=== PATIENT | male | born 1960 | race African-American/Black ===

== ENCOUNTER 2016-12-10 07:19 | Inpatient (IN) | payer MEDICARE, MEDICAID ==
[~2016-12-10] VITALS: Ht 180.3 cm; Wt 115.7 kg
[~2016-12-10 07:19] MED LIST: ALBUTEROL SULF8.5 GM INH; AMITRIPTYLINE H25 MG ORAL; AMLODIPINE BESY10 MG ORAL; AZITHROMYCIN250 MG ORAL; BUPROPION HCL150 M3 ORAL; COUMADIN5 MG ORAL; FLONASE1 SPRAYS NASAL; GABAPENTIN300 MG ORAL; HYDROXYZINE PA100 MG ORAL; KEFLEX500 MG ORAL; LEVAQUIN500 MG ORAL; LISINOPRIL10 MG ORAL; LORAZEPAM2 MG ORAL; NEXIUM40 MG ORAL; OXYCODONE HCL15 M1 ORAL; PROAIR HFA8.5 GM INH; PROMETH-CODEIN 65 ML PO; PROMETHAZINE-C118 M1 ORAL; TRAMADOL HCL50 MG ORAL; VOLTAREN50 MG TOPIC; WARFARIN SODIU7.5 MG ORAL; WARFARIN SODIUM5 MG ORAL; ZOFRAN4 M1 ORAL; ZYRTEC10 MG ORAL
[2016-12-10] MEDS ORDERED: Albuterol ud Inhalation HHN ONE (07:45)
[2016-12-10] MEDS ORDERED: Ipratropium 0.02% Inh Soln 2.5ml UD HHN ONE (07:45)
[2016-12-10 08:02] LABS: MEAN CORPUSCULAR HEMOGLOBIN 16.6 PG (27.0-31.0); MEAN CORPUSCULAR HGB CONC 27.5 G/DL (32.0-36.0); MEAN CORPUSCULAR VOLUME 60 FL (80-99); MEAN PLATELET VOLUME 7.2 FL (6.5-10.1); PLATELET COUNT 299 K/UL (150-450); RED BLOOD COUNT 2.28 M/UL (4.70-6.10); RED CELL DISTRIBUTION WIDTH 17.2 % (11.6-14.8); WHITE BLOOD COUNT 6.1 K/UL (4.8-10.8)
[2016-12-10 08:14] LABS: INR 2.7 (0.9-1.1)
[2016-12-10 08:15] LABS: ALBUMIN/GLOBULIN RATIO 1.3 (1.0-2.7); CREATININE 1.7 mg/dL (0.7-1.2); GLOMERULAR FILTRATION RATE 50.4 mL/min (>60); POTASSIUM 4.4 mEQ/L (3.4-4.9); TROPONIN I < 0.30 ng/mL (<=0.30)
--- NOTE | 2016-12-10 08:16 | Emergency Room Report ---
History of Present Illness General Chief Complaint: Upper Respiratory Illness Source: Patient Present Illness HPI 56-year-old male presents to ED for evaluation. States the last 3 days he's been feeling short of breath. Has hard time breathing. Short of breath while at rest. Patient states he's been using his inhaler but is not helping. Denies any cough. Denies any chest pain. Notes history of blood clot in his lungs and takes Coumadin. Denies sick contacts or recent travel. No other aggravating or relieving factors. Denies any other associated symptoms Allergies: Coded Allergies: NO KNOWN DRUG ALLERGIES (Unverified Allergy, Unknown, 02/20/14) Patient History Past Medical History: DM, HTN, COPD Past Surgical History: none Pertinent Family History: none Social History: Denies: alcohol use, drug use, smoking Immunizations: UTD Reviewed Nursing Documentation: PMH: Agreed, PSxH: Agreed Nursing Documentation-PMH Past Medical History: No History, Except For Hx Hypertension: Yes Hx Pacemaker: No Hx Asthma: No Hx COPD: Yes Hx Diabetes: Yes Hx Cancer: No Hx Gastrointestinal Problems: No Hx Dialysis: No Hx Neurological Problems: No Hx Cerebrovascular Accident: No Hx Seizures: No Review of Systems All Other Systems: negative except mentioned in HPI Physical Exam Vital Signs Date Time Temp Pulse Resp B/P Pulse Ox O2 Delivery O2 Flow Rate FiO2 12/10/16 07:27 97.5 107 24 92/54 98 Room Air 12/10/16 07:55 2.0 Sp02 EP Interpretation: reviewed, normal General Appearance: no apparent distress, alert, GCS 15, non-toxic Head: normocephalic, atraumatic Eyes: bilateral eye PERRL, bilateral eye normal inspection ENT: hearing grossly normal, normal pharynx, no angioedema, normal voice Neck: full range of motion, supple/symm/no masses Respiratory: chest non-tender, lungs clear, normal breath sounds, speaking full sentences Cardiovascular #1: regular rate, rhythm, no edema Cardiovascular #2: 2+ carotid (R), 2+ carotid (L), 2+ radial (R), 2+ radial (L) , 2+ dorsalis pedis (R), 2+ dorsalis pedis (L) Gastrointestinal: normal bowel sounds, non tender, soft, non-distended, no guarding, no rebound Rectal: deferred Genitourinary: normal inspection, no CVA tenderness Musculoskeletal: back normal, gait/station normal, normal range of motion, non- tender Neurologic: alert, oriented x3, responsive, motor strength/tone normal, sensory intact, speech normal Psychiatric: judgement/insight normal, memory normal, mood/affect normal, no suicidal/homicidal ideation Reflexes: 3+ bicep (R), 3+ bicep (L), 3+ tricep (R), 3+ tricep (L), 3+ knee (R) , 3+ knee (L) Skin: normal color, no rash, warm/dry, well hydrated Lymphatic: no adenopathy Procedures Critical Care Time Critical Care Time i. I feel this is a highly complex case requiring extensive working including EKG/Rhythm strip, Xray/CT/US, Blood/urine lab work, repeat exams while in ED, and administration of strong opiates/narcotics for pain control, admission to hospital or close patient follow up. Total time: 30 min bedside evaluation and treatment excludes procedures (EKG). Reason for critical care: anemia hb 3.8 Possible complications: hypotension, hypertension, NH, shock, arrhythmias, metabolic acidosis, end organ damage, respiratory failure. Interventions: labs, EKG, CXR, nebulizer treatments. PRBCs. guiac. abx. Course: patient here for shortness of breath. History of COPD and DVT. Hemoglobin 3.8. Chest x-ray shows interstitial infiltrates. PRBCs ordered. Antibiotics given Consultations: nursing staff, EMS, family Performed by: Dr Huff Tolerated well ondition = serious j. because of unstable vital signs this patient had a condition that could potentially threaten life or limb. I feel this is a critical patient who required my full attention while patient was considered critical. Total Critical Care Time excluding procedures was greater than 35 minutes Medical Decision Making Diagnostic Impression: Primary Impression: Anemia Qualified Codes: D64.9 - Anemia, unspecified Additional Impressions: COPD (chronic obstructive pulmonary disease) Qualified Codes: J44.9 - Chronic obstructive pulmonary disease, unspecified Acute renal failure Qualified Codes: N17.9 - Acute kidney failure, unspecified Pneumonia Qualified Codes: J18.9 - Pneumonia, unspecified organism ER Course Hospital Course 56-year-old M presenting to ED with SOB. h/o COPD. h/o DVT Differential diagnoses include: Pneumonia, CHF exacerbation, pneumothorax, fluid overload Clinical course Patient placed on stretcher. On rn cardiac rehab with stable vitals. After initial history and physical, I ordered nebulizer treatments. I ordered labs, IV fluids, EKG, chest x-ray, blood cultures, UA. Labs - no leukocytosis noted, hemoglobin 3.8, Cr 1.7, troponins negative, INR 2.7 CXR - cardiomegaly. bilateral interstitial infiltrates EKG - NSR, no acute ischemic changes interpreted by me blood was redrawn to recheck the hemoglobin and confirmed patient has good BP. PRBCs ordered. guiac negative. Unable to perform CTA with elevated Cr. unlikely PE with therapeutic INR. abx given Case discussed with Dr. Cobos and he agreed to the patient to his service for further care and support I feel this is a highly complex case requiring extensive working including EKG/ Rhythm strip, Xray/CT/US, Blood/urine lab work, repeat exams while in ED, and administration of strong opiates/narcotics for pain control, admission to hospital or close patient follow up. Diagnosis - anemia, COPD, ARF, pneuonia Patient admitted to [facility] in serious condition Labs Test 12/10/16 07:45 White Blood Count 6.1 K/UL (4.8-10.8) Red Blood Count 2.28 M/UL (4.70-6.10) Hemoglobin 3.8 G/DL (14.2-18.0) Hematocrit 13.8 % (42.0-52.0) Mean Corpuscular Volume 60 FL (80-99) Mean Corpuscular Hemoglobin 16.6 PG (27.0-31.0) Mean Corpuscular Hemoglobin Concent 27.5 G/DL (32.0-36.0) Red Cell Distribution Width 17.2 % (11.6-14.8) Platelet Count 299 K/UL (150-450) Mean Platelet Volume 7.2 FL (6.5-10.1) Neutrophils (%) (Auto) % (45.0-75.0) Lymphocytes (%) (Auto) % (20.0-45.0) Monocytes (%) (Auto) % (1.0-10.0) Eosinophils (%) (Auto) % (0.0-3.0) Basophils (%) (Auto) % (0.0-2.0) Differential Total Cells Counted 100 Neutrophils % (Manual) 75 % (45-75) Lymphocytes % (Manual) 15 % (20-45) Monocytes % (Manual) 5 % (1-10) Eosinophils % (Manual) 4 % (0-3) Basophils % (Manual) 1 % (0-2) Band Neutrophils 0 % (0-8) Nucleated Red Blood Cells 2 /100 WBC Platelet Estimate Adequate Platelet Morphology Normal Polychromasia 3+ Hypochromasia 4+ Poikilocytosis 2+ Anisocytosis 1+ Microcytosis 4+ Prothrombin Time 29.0 SEC (9.30-11.50) Prothromb Time International Ratio 2.7 (0.9-1.1) Activated Partial Thromboplast Time 29 SEC (23-33) Sodium Level 144 mEQ/L (135-145) Potassium Level 4.4 mEQ/L (3.4-4.9) Chloride Level 106 mEQ/L (98-107) Carbon Dioxide Level 25 mEQ/L (20-30) Anion Gap 13 (5-15) Blood Urea Nitrogen 28 mg/dL (7-23) Creatinine 1.7 mg/dL (0.7-1.2) Estimat Glomerular Filtration Rate 50.4 mL/min (>60) Glucose Level 120 mg/dL (74-106) Calcium Level 9.0 mg/dL (8.6-10.2) Total Bilirubin 0.3 mg/dL (0.0-1.2) Aspartate Amino Transf (AST/SGOT) 17 U/L (5-40) Alanine Aminotransferase (ALT/SGPT) 15 U/L (3-41) Alkaline Phosphatase 45 U/L (40-129) Total Creatine Kinase 579 U/L (38-174) Creatine Kinase MB 4.7 ng/mL (< 6.7) Creatine Kinase MB Relative Index 0.8 Troponin I < 0.30 ng/mL (<=0.30) Pro-B-Type Natriuretic Peptide 304 pg/mL (0-125) Total Protein 7.0 g/dL (6.6-8.7) Albumin 4.0 g/dL (3.5-5.2) Globulin 3.0 g/dL Albumin/Globulin Ratio 1.3 (1.0-2.7) EKG Diagnostic Results Rate: normal Rhythm: NSR ST Segments: no acute changes ASA given to the pt in ED: No Rhythm Strip Diag. Results EP Interpretation: yes Rhythm: NSR, no PVC's, no ectopy Chest X-Ray Diagnostic Results Chest X-Ray Ordered: Yes # of Views/Limited/Complete: 1 View Interpretation: no pneumothorax, other - bilateral interstitial infiltrates. cardiomegaly Indication: Shortness of Breath Impression: Other - cardiomegaly. bilateral infiltrates Date Electronically Signed: Dec 10, 2016 Time Electronically Signed: 08:41 Interpreting ER Physician: Aubrey Huff MD Last Vital Signs Date Time Temp Pulse Resp B/P Pulse Ox O2 Delivery O2 Flow Rate FiO2 12/10/16 07:55 101 20 100 Nasal Cannula 2.0 12/10/16 07:27 97.5 92/54 Status: improved Disposition: ADMITTED INPATIENT Condition: Serious Referrals: [facility],REFERRING (PCP) AUBREY HUFF M.D. Dec 10, 2016 08:16
[2016-12-10 08:25] LABS: CKMB 4.7 ng/mL (< 6.7)
[2016-12-10 08:27] LABS: ANISOCYTOSIS 1+; BAND NEUTROPHILS % (MANUAL) 0 % (0-8); BASOPHILS % (MANUAL) 1 % (0-2); EOSINOPHILS % (MANUAL) 4 % (0-3); HYPOCHROMASIA 4+; LYMPHOCYTES % (MANUAL) 15 % (20-45); MICROCYTES 4+; NEUTROPHILS % (MANUAL) 75 % (45-75); NUCLEATED RED BLOOD CELLS 2 /100 WBC; PLATELET ESTIMATE ADEQUATE; TOTAL CELLS COUNTED 100
[2016-12-10 08:28] LABS: PLATELET MORPHOLOGY NORMAL; POIKILOCYTOSIS 2+; POLYCHROMASIA 3+
[2016-12-10 08:35] VITALS: BP 113/61
--- NOTE | 2016-12-10 08:39 | Diagnostic Imaging Report ---
Indications: Shortness of breath Technique: Double AP chest Findings: Comparison: 04/05/2016 Inspiratory effort has improved. Cardiac silhouette upper limits of normal size. Pulmonary vascular redistribution, bilateral interstitial infiltrates again noted. No pleural abnormality demonstrated. Circumscribed soft tissue opacity with central gas lucency again noted over left lung base. IMPRESSION: Congestive heart failure Hiatal versus paraesophageal versus diaphragmatic hernia, stable
[2016-12-10] MEDS ORDERED: cefTRIAXone 1 GM in NS 55 ML IV ONE (08:45)
[2016-12-10] MEDS ORDERED: Azithromycin 500 MG in NS 275 ML IV ONE (08:45)
[2016-12-10 09:41] VITALS: BP 133/96
[2016-12-10] MEDS ORDERED: Azithromycin Inj IV ONE (09:47)
[2016-12-10] MEDS: DuoNeb 0.5-3(2.5)mg/3ml neb HHN SCH ×4 (11:00→22:55)
[2016-12-10 11:05] VITALS: BP 129/72
[2016-12-10] MEDS ORDERED: Norco 5mg/325mg tab ORAL ONE (11:30)
[2016-12-10 12:00] VITALS: BP 130/79
[2016-12-10 15:52] VITALS: BP 127/97
--- NOTE | 2016-12-10 16:30 | History and Physical Report ---
DATE OF ADMISSION: 12/10/2016 HISTORY OF PRESENT ILLNESS: This is a 56-year-old male with a history of COPD and CHF, who came to the hospital with shortness of breath. He was seen and worked up and admitted to the hospital. The patient was noted markedly anemic, although he denied having any obvious source of blood loss. The patient is currently on Coumadin. His guaiac test was negative in the emergency room. The patient has a previous history of pulmonary edema, previous amphetamine usage, history of previous DVT, COPD, obesity, probable underlying NIKKO, chronic Coumadin usage, and hypertension. It is noted that he was admitted to this hospital in March 2016 and was then discharged with recommendations to have an outpatient polysomnogram. The patient had pneumonia and rhabdomyolysis at that time as well. He was asked whether he was using amphetamines also at that point in time. The patient came to the hospital today with complaints of shortness of breath. He was seen and admitted to the hospital. At this point, he is being transfused. PAST MEDICAL HISTORY: Notable for hypertension, probable underlying COPD, problem lying NIKKO, history of amphetamine usage, history previous DVT and chronic Coumadin usage. MEDICATIONS: Home medications include amlodipine, lisinopril and Coumadin. ALLERGIES: None reported. REVIEW OF SYSTEMS: The patient denies any headaches, hematemesis, melena, or hematochezia. PHYSICAL EXAMINATION: GENERAL: The patient is a an obese male. VITAL SIGNS: Blood pressure is 160/60, heart rate is 104, respirations are 26, and O2 saturation 94% with oxygen. HEENT: Unremarkable. CHEST: Decreased breath sounds bilaterally. ABDOMEN: Soft, nontender, and nondistended. EXTREMITIES: There is no peripheral edema. No cyanosis or clubbing, LABORATORY AND DIAGNOSTIC DATA: An x-ray chest was obtained, which showed a hiatal versus paraesophageal versus diaphragmatic hernia. EKG is a normal sinus rhythm. Laboratory testing, verified hemoglobin was found to be 3.8, white count 6.1, and platelet count 299,000. Chemistries, creatinine 1.7, glucose 120. ProBNP 304. Troponin negative. INR 2.7. IMPRESSION: 1. Chronic Coumadin usage. 2. History of deep vein thrombosis. 3. History of obstructive sleep apnea. 4. History of chronic obstructive pulmonary disease. 5. History previous amphetamine use. 6. Severe anemia. 7. Obesity. 8. Possible pulmonary edema. DISCUSSION: 1. Admit to the hospital. 2. Continue medications. 3. Check 2D echo. 4. We will consult Cardiology. 5. We will consult Gastrointestinal for workup of anemia. 6. Consider Hematology evaluation. 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 Jarod Cobos M.D. DR: MANOHAR JOB#: [id number] CC:
[2016-12-10 20:36] VITALS: BP 141/75
[2016-12-10] MEDS ORDERED: DuoNeb 0.5-3(2.5)mg/3ml neb HHN PRN (22:30)
[2016-12-10] MEDS: Norco 5mg/325mg tab ORAL PRN (22:53)
[2016-12-11] VITALS (7 sets, daily range): BP systolic 106–134; BP diastolic 46–81
[2016-12-11] MEDS: DuoNeb 0.5-3(2.5)mg/3ml neb HHN SCH ×6 (02:45→23:16)
[2016-12-11 05:53] LABS: MEAN CORPUSCULAR HEMOGLOBIN 22.3 PG (27.0-31.0); MEAN CORPUSCULAR HGB CONC 31.3 G/DL (32.0-36.0); MEAN CORPUSCULAR VOLUME 71 FL (80-99); MEAN PLATELET VOLUME 6.6 FL (6.5-10.1); PLATELET COUNT 257 K/UL (150-450); RED BLOOD COUNT 3.19 M/UL (4.70-6.10); RED CELL DISTRIBUTION WIDTH 25.3 % (11.6-14.8); WHITE BLOOD COUNT 7.1 K/UL (4.8-10.8)
[2016-12-11 06:10] LABS: ANION GAP 15 (5-15); CALCIUM 8.8 mg/dL (8.6-10.2); CARBON DIOXIDE 22 mEQ/L (20-30); CHLORIDE 104 mEQ/L (98-107); CREATININE 1.2 mg/dL (0.7-1.2); GLOMERULAR FILTRATION RATE > 60 mL/min (>60); HEMOLYSIS 2; POTASSIUM 4.2 mEQ/L (3.4-4.9); SODIUM 141 mEQ/L (135-145)
[2016-12-11 06:23] LABS: HEMOGLOBIN A1C 5.1 % (< 6.0)
[2016-12-11 08:03] LABS: BAND NEUTROPHILS % (MANUAL) 0 % (0-8); BASOPHILS % (MANUAL) 0 % (0-2); EOSINOPHILS % (MANUAL) 4 % (0-3); HYPOCHROMASIA 3+; LYMPHOCYTES % (MANUAL) 19 % (20-45); NEUTROPHILS % (MANUAL) 71 % (45-75); PLATELET ESTIMATE ADEQUATE; TOTAL CELLS COUNTED 100
[2016-12-11 08:04] LABS: ANISOCYTOSIS 4+; MICROCYTES 2+; PLATELET MORPHOLOGY NORMAL
--- NOTE | 2016-12-11 08:38 | Pulmonology Progress Note ---
Assessment/Plan Assessment/Plan IMPRESSION: 1. Chronic Coumadin usage. 2. History of deep vein thrombosis. 3. History of obstructive sleep apnea. 4. History of chronic obstructive pulmonary disease. 5. History previous amphetamine use. 6. Severe anemia. 7. Obesity. 8. Possible pulmonary edema. DISCUSSION: 1. S/p 4 units prbc last 24 hours; Hgb still 7. Will transfuse another 2 units today 2. Continue medications. 3. Check 2D echo. 4. I will consult Cardiology. 5. I will consult Gastrointestinal for workup of anemia. 6. Consider Hematology evaluation. 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 Subjective Interval Events: S/p 4 units prbc last 24 hours; feels well Constitutional: Reports: no symptoms HEENT: Repors: no symptoms Respiratory: Reports: no symptoms Cardiovascular: Reports: no symptoms Gastrointestinal/Abdominal: Reports: no symptoms Genitourinary: Reports: no symptoms Neurologic: Reports: no symptoms Allergies: Coded Allergies: NO KNOWN DRUG ALLERGIES (Unverified Allergy, Unknown, 02/20/14) Objective Last 24 Hour Vital Signs Date Time Temp Pulse Resp B/P Pulse Ox O2 Delivery O2 Flow Rate FiO2 12/11/16 08:00 97.9 95 20 133/78 97 Room Air 12/11/16 07:32 84 18 99 Room Air 12/11/16 07:22 97 18 100 Room Air 12/11/16 07:22 97 20 Room Air 12/11/16 04:00 98.3 81 18 106/55 100 Room Air 12/11/16 03:23 93 12/11/16 02:46 95 20 99 Room Air 12/11/16 02:46 100 20 96 Room Air 12/11/16 00:27 101 12/11/16 00:00 97.9 104 20 134/81 97 Room Air 12/10/16 23:05 98 20 100 Room Air 12/10/16 22:55 98 20 100 Room Air 12/10/16 20:36 98.0 75 18 141/75 93 Room Air 12/10/16 19:19 102 20 100 Room Air 12/10/16 19:12 98 12/10/16 19:05 101 20 100 Room Air 12/10/16 19:05 101 20 Room Air 12/10/16 16:00 97 12/10/16 15:52 98.3 77 18 127/97 100 Room Air 12/10/16 12:00 98.0 92 20 130/79 100 Room Air 12/10/16 12:00 92 12/10/16 11:28 97.8 12/10/16 11:09 97.8 97 20 129/72 100 Room Air 2.0 12/10/16 11:05 97 20 129/72 100 Room Air 12/10/16 09:41 97.8 99 20 133/96 100 Nasal Cannula 2.0 Intake and Output 12/10/16 12/11/16 19:00 07:00 Intake Total 1335 ml 1290 ml Output Total 500 ml Balance 1335 ml 790 ml Intake Oral 30 ml 790 ml IV Total 805 ml Blood Product 500 ml 500 ml Output Urine Total 500 ml # Voids 2 1 General Appearance: no acute distress HEENT: normocephalic Respiratory/Chest: chest wall non-tender, lungs clear, normal breath sounds Cardiovascular: normal peripheral pulses, normal rate Abdomen: normal bowel sounds, soft, non tender Extremities: no cyanosis Laboratory Tests 12/11/16 03:25: White Blood Count 7.1, Red Blood Count 3.19L, Hemoglobin 7.1#L, Hematocrit 22.7# L, Mean Corpuscular Volume 71#L, Mean Corpuscular Hemoglobin 22.3L, Mean Corpuscular Hemoglobin Concent 31.3L, Red Cell Distribution Width 25.3H, Platelet Count 257, Mean Platelet Volume 6.6, Neutrophils (%) (Auto) , Lymphocytes (%) (Auto) , Monocytes (%) (Auto) , Eosinophils (%) (Auto) , Basophils (%) (Auto) , Differential Total Cells Counted 100, Neutrophils % ( Manual) 71, Lymphocytes % (Manual) 19L, Monocytes % (Manual) 6, Eosinophils % ( Manual) 4H, Basophils % (Manual) 0, Band Neutrophils 0, Platelet Estimate Adequate, Platelet Morphology Normal, Hypochromasia 3+, Anisocytosis 4+, Microcytosis 2+, Sodium Level 141, Potassium Level 4.2, Chloride Level 104, Carbon Dioxide Level 22, Anion Gap 15, Blood Urea Nitrogen 21, Creatinine 1.2, Estimat Glomerular Filtration Rate > 60, Glucose Level 99, Hemoglobin A1c 5.1, Calcium Level 8.8 Current Medications Medications (Trade) Dose Ordered Sig/Cory Route PRN Reason Start Time Stop Time Status Last Admin Dose Admin Acetaminophen/ Hydrocodone Bitart ([place] 5/325) 1 tab Q6H PRN ORAL For Pain 12/10/16 22:45 12/17/16 22:44 12/10/16 22:53 Albuterol/ Ipratropium (DuoNeb 0.5-3(2.5)mg/3ml) 3 ml Q4HRT HHN 12/10/16 11:00 12/15/16 10:59 12/11/16 07:22 Dextrose (Dextrose 50%) STAT PRN IV Hypoglycemia 12/10/16 10:00 01/09/17 09:59 Jarod Cobos MD Dec 11, 2016 08:38
--- NOTE | 2016-12-11 12:21 | GI Initial Consult Note ---
History of Present Illness General Date patient seen: Dec 11, 2016 Time patient seen: 12:11 Reason for Hospitalization: Upper Respiratory Illness Referring physician: JAROD CLEMENT Reason for Consultation: ANEMIA Present Illness HPI 56-year-old male presents to ED for evaluation. States the last 3 days he's been feeling short of breath. Has hard time breathing. Short of breath while at rest. Patient states he's been using his inhaler but is not helping. Denies any cough. Denies any chest pain. Notes history of blood clot in his lungs and takes Coumadin. Denies sick contacts or recent travel. No other aggravating or relieving factors. Denies any other associated symptoms GI CONSULT. HPI noted above. GI consulted for anemia, low Hgb 3.8 in ED. Pt seen on floor, awake A&Ox4 NAD with no active s/sx of N/V/D or active bleed noted. According to the patient he had an episode of emesis where he noted black coffee grounds and have noted his stools to be dark at times. He did state he was taking iron supplements as well. He has a history of abdominal surgery unknown, GERD by endoscopy in which he takes ppi's BID. His last colonoscopy was 2 years ago with unremarkable results and the patient states his last EGD was approximately 4-5 years ago. He presents today with low hemoglobin 7.1, currently being transfused. The patient also has a history of DVTs and is on Coumadin. Home Meds Active Scripts Levofloxacin* (LEVAQUIN*) 500 Mg Tablet, 500 MG ORAL DAILY for 7 Days, TAB Prov:Jarod Clement MD 04/07/16 Tramadol Hcl* (ULTRAM*) 50 Mg Tablet, 50 MG ORAL Q6H Y for 10 Days, TAB Prov:Jarod Clement MD 04/07/16 Reported Medications Lorazepam* (LORAZEPAM*) 2 Mg Tablet, 2 MG ORAL DAILY, TAB 04/05/16 Albuterol Sulfate* (PROAIR HFA*) 8.5 Gm Hfa.aer.ad, 1 PUFF INH Q6H, #8.5 GM 0 Refills 04/05/16 Warfarin Sod* (COUMADIN*) 5 Mg Tablet, 5 MG ORAL DAILY, TAB 04/05/16 Bupropion Hcl* (BUPROPION HCL SR*) 150 Mg Tablet.er, 150 MG ORAL DAILY, TAB 02/22/14 Amitriptyline Hcl* (AMITRIPTYLINE HCL*) 25 Mg Tablet, 25 MG ORAL BEDTIME, TAB 02/22/14 Lisinopril* (LISINOPRIL*) 10 Mg Tablet, 10 MG ORAL DAILY, TAB 02/22/14 Gabapentin* (GABAPENTIN*) 300 Mg Capsule, 300 MG ORAL DAILY, CAP 02/22/14 Amlodipine Besylate* (AMLODIPINE BESYLATE*) 10 Mg Tablet, 10 MG ORAL DAILY, TAB 02/22/14 Esomeprazole Magnesium (NEXIUM) 40 Mg Capsule.dr, 40 MG ORAL DAILY, CAP 02/22/14 Med list reviewed/reconciled: Yes Allergies: Coded Allergies: NO KNOWN DRUG ALLERGIES (Unverified Allergy, Unknown, 02/20/14) Patient History History Provided By: Patient, Medical Record PMH Narrative Past Medical History: DM, HTN, COPD Past Surgical History: none Pertinent Family History: none Social History: Denies: alcohol use, drug use, smoking Immunizations: UTD Reviewed Nursing Documentation: PMH: Agreed, PSxH: Agreed Nursing Documentation-PMH Past Medical History: No History, Except For Hx Hypertension: Yes Hx Pacemaker: No Hx Asthma: No Hx COPD: Yes Hx Diabetes: Yes Hx Cancer: No Hx Gastrointestinal Problems: No Hx Dialysis: No Hx Neurological Problems: No Hx Cerebrovascular Accident: No Hx Seizures: No Review of Systems All Other Systems: negative except mentioned in HPI Physical Exam Vital Signs Date Time Temp Pulse Resp B/P Pulse Ox O2 Delivery O2 Flow Rate FiO2 12/10/16 07:27 97.5 107 24 92/54 98 Room Air 12/10/16 07:55 2.0 Sp02 EP Interpretation: reviewed Labs Laboratory Tests Test 12/11/16 03:25 White Blood Count 7.1 K/UL (4.8-10.8) Red Blood Count 3.19 M/UL (4.70-6.10) L Hemoglobin 7.1 G/DL (14.2-18.0) #L Hematocrit 22.7 % (42.0-52.0) #L Mean Corpuscular Volume 71 FL (80-99) #L Mean Corpuscular Hemoglobin 22.3 PG (27.0-31.0) L Mean Corpuscular Hemoglobin Concent 31.3 G/DL (32.0-36.0) L Red Cell Distribution Width 25.3 % (11.6-14.8) H Platelet Count 257 K/UL (150-450) Mean Platelet Volume 6.6 FL (6.5-10.1) Neutrophils (%) (Auto) % (45.0-75.0) Lymphocytes (%) (Auto) % (20.0-45.0) Monocytes (%) (Auto) % (1.0-10.0) Eosinophils (%) (Auto) % (0.0-3.0) Basophils (%) (Auto) % (0.0-2.0) Differential Total Cells Counted 100 Neutrophils % (Manual) 71 % (45-75) Lymphocytes % (Manual) 19 % (20-45) L Monocytes % (Manual) 6 % (1-10) Eosinophils % (Manual) 4 % (0-3) H Basophils % (Manual) 0 % (0-2) Band Neutrophils 0 % (0-8) Platelet Estimate Adequate Platelet Morphology Normal Hypochromasia 3+ Anisocytosis 4+ Microcytosis 2+ Sodium Level 141 mEQ/L (135-145) Potassium Level 4.2 mEQ/L (3.4-4.9) Chloride Level 104 mEQ/L (98-107) Carbon Dioxide Level 22 mEQ/L (20-30) Anion Gap 15 (5-15) Blood Urea Nitrogen 21 mg/dL (7-23) Creatinine 1.2 mg/dL (0.7-1.2) Estimat Glomerular Filtration Rate > 60 mL/min (>60) Glucose Level 99 mg/dL (74-106) Hemoglobin A1c 5.1 % (< 6.0) Calcium Level 8.8 mg/dL (8.6-10.2) General Appearance: well appearing, no apparent distress, alert, obese Head: normocephalic EENT: normal ENT inspection Neck: full range of motion, supple Respiratory: normal breath sounds, no respiratory distress Cardiovascular: normal rate Gastrointestinal: normal inspection, non tender, soft, normal bowel sounds Genitourinary: normal inspection, no CVA tenderness Musculoskeletal: normal inspection Neurologic: normal inspection, alert, oriented x3, responsive Psychiatric: normal inspection, judgement/insight normal, memory normal Skin: normal inspection, normal color, no rash, warm/dry Lymphatic: normal inspection, no adenopathy Current Medications Current Medications Medications (Trade) Dose Ordered Sig/Cory Route PRN Reason Start Time Stop Time Status Last Admin Dose Admin Acetaminophen/ Hydrocodone Bitart ([place] 5/325) 1 tab Q6H PRN ORAL For Pain 12/10/16 22:45 12/17/16 22:44 12/10/16 22:53 Albuterol/ Ipratropium (DuoNeb 0.5-3(2.5)mg/3ml) 3 ml Q4HRT HHN 12/10/16 11:00 12/15/16 10:59 12/11/16 10:31 Dextrose (Dextrose 50%) STAT PRN IV Hypoglycemia 12/10/16 10:00 01/09/17 09:59 GI: Plan Problems: (1) Hypercoagulopathy (2) Anemia (3) Hx of deep venous thrombosis (4) Polysubstance abuse Plan tentatively will placed patient for EGD pending APCT results maintain on CLD + IVFs, NPO @ [facility]. correct coagulopathy ordered OB stool to r/o GI bleed ordered APCT r/o retroperitoneal bleed monitor H&H, transfuse prn PPI BID anemia work up hold blood thinners, coumadin (must be held min x 48 hours prior any endoscopic procedure.) fu labs Discussed with Dr. Vanegas. Thank you for referring this patient, we will follow. Clara Romero N.P. Dec 11, 2016 12:21
[2016-12-11] MEDS ORDERED: Phytonadione 1 MG in D5W 55 ML IVPB ONE (16:00)
[2016-12-11] MEDS: Norco 5mg/325mg tab ORAL PRN ×2 (16:26→23:43)
--- NOTE | 2016-12-11 16:43 | Diagnostic Imaging Report ---
Clinical Indication: Abdominal pain Technique: Patient ingested oral contrast IV administration nonionic contrast. Venous phase spiral acquisition obtained through the abdomen and pelvis. Multiplanar reconstructions were generated. Total dose length product 971 mGycm. CTDIvol(s) the mGy. Dose reduction achieved using automated exposure control Comparison: None Findings: Normal appendix. No evidence of diverticulosis or diverticulitis. No small bowel distention. There is a sizable paraesophageal hiatal hernia. The duodenum is unremarkable. No free or loculated intraperitoneal air or fluid is evident. There are fat-containing bilateral inguinal hernias. No evidence of retroperitoneal hematoma. No other evidence of bleeding. There is mild edema of the bilateral flank and hip subcutaneous fat. There is relative asymmetric atrophy of the right-sided paraspinous musculature. The liver, gallbladder, bile ducts, pancreas, spleen, adrenals are all unremarkable. The kidneys demonstrate bilateral subcentimeter low-attenuation lesions which are too small to characterize. No retroperitoneal or mesenteric mass or adenopathy. No pelvic mass or adenopathy. The included lung bases demonstrate 2 nodules on the left, image 5 of series 7, each measuring approximately 2 mm diameter. Some atelectasis or scarring is seen in the left lung base, as well as some reticulonodular opacities. The right lung base is clear. The bones are unremarkable. Impression: No evidence of retroperitoneal hematoma or other acute abnormality Large paraesophageal hiatal hernia 2 left lung base nodules, each approximately 2 millimeters diameter. If there is significant smoking history or other risk factors for lung carcinoma, shorter followup at 6 months is recommended, per Fleischner criteria. If there are no significant risk factors, no further followup is necessary Nonspecific reticulonodular opacities at the left lung base Other findings as noted, including bilateral fat-containing inguinal hernias, mild edema of the bilateral flank subcutaneous fat, asymmetric atrophy of the right-sided paraspinous musculature The CT scanner at [facility] is accredited by the [employer] and the scans are performed using protocols designed to limit radiation exposure to as low as reasonably achievable to attain images of sufficient resolution adequate for diagnostic evaluation.
--- NOTE | 2016-12-11 23:45 | Consultation ---
DATE OF CONSULTATION: 12/11/2016 CARDIOLOGY CONSULTATION CONSULTING PHYSICIAN: Alejandro Turner M.D. REFERRING PHYSICIAN: Jarod Cobos M.D. REASON FOR CONSULTATION: Management of shortness of breath. HISTORY OF PRESENT ILLNESS: The patient is a very unfortunate 56-year-old gentleman, who presents to the emergency department with complaint of shortness of breath and coffee-ground emesis as well as melanotic stools. The patient takes Coumadin for prior history of deep vein thrombosis. He denies pulmonary embolism. On arrival to the emergency department, blood pressure was 92/54 mmHg and heart rate was 107. Cardiology consultation was made at the request of Dr. Cobos for evaluation and management of shortness of breath. PAST MEDICAL HISTORY: Including diabetes mellitus, hypertension, chronic obstructive pulmonary disease, and history of DVT. MEDICATIONS: List of medication at home including Albuterol one puff q.6 hours, amitriptyline 35 mg at bedtime, amlodipine 10 mg p.o. daily, bupropion 150 mg daily, 40 mg p.o. daily, gabapentin 300 mg p.o. daily, Levaquin 500 mg p.o. daily for 7 days, lisinopril 10 mg p.o. daily, lorazepam 10 mg p.o. daily, Ultram 50 mg p.o. q.6 hours p.r.n. 10 days, and Coumadin 5 mg p.o. daily. ALLERGIES: No known drug allergies. SOCIAL HISTORY: Possible history of amphetamine use. Denies any history of alcohol. REVIEW OF SYSTEMS: A 12-system review was done and essentially negative except what is mentioned in the history of present illness. PHYSICAL EXAMINATION: VITAL SIGNS: Blood pressure at the time of arrival to the hospital was 92/54, respirations 24, pulse of 107, temperature 97.5 degrees Fahrenheit, and O2 saturation 98% on room air. GENERAL: The patient is a pleasant morbidly obese 56-year-old gentleman, in no apparent respiratory distress. Alert and orient x4. HEENT: Atraumatic and normocephalic. Anicteric. Pupils are equal, round, and reactive to light and accommodation. Extraocular muscles intact. NECK: JVP cannot be assessed due to obesity. No carotid bruits. Carotid upstrokes 2+ bilaterally. CARDIOVASCULAR: Normal S1 and S2. Regular rate and rhythm. A 2/6 mid systolic murmur at the left sternal border. PMI is at fourth intercostal space in the midclavicular line. LUNGS: Clear to auscultation bilaterally. ABDOMEN: Soft, nontender, and nondistended. No hepatosplenomegaly. A midline vertical scar is seen. Positive bowel sounds. EXTREMITIES: No evidence of edema, clubbing, or cyanosis. ATTENDING PHYSICIAN: WBC 6.1, hemoglobin 3.8, up to 7.1 after blood transfusion, hematocrit 13.8, up to 22.7 after blood transfusion, and platelet count is 299,000. Chemistry shows sodium 144, potassium 4.4, chloride 106, bicarbonate 25, BUN of 28, creatinine 1.7 down to 1.2, and glucose is 120. Troponin I is less than 0.3. ProBNP was 304. INR is 2.7. A 12-lead electrocardiogram, sinus rhythm at a rate of 98 with no acute ischemic changes. Chest x-ray showed cardiomegaly with bilateral interstitial edema. ASSESSMENT AND PLAN: The patient is a very unfortunate 56-year-old gentleman, who is seen in Cardiology consultation at the request of Dr. Cobos. 1. Dyspnea. This could be secondary to be profound anemia due to acute blood loss. Chest x-ray is also suggestive of some interstitial edema. We would like to obtain 2D echocardiography for assessment of left ventricular systolic function and also diastolic function for evaluation of hemodynamics. Further diagnosis and therapeutic decision will be based on the results of echocardiography. At this time, we will continue with oxygen. In view of hypotension on arrival to the hospital, I would probably stay away from diuretic use. 2. History of deep venous thrombosis. He denies pulmonary embolism. A 12-lead electrocardiogram is showing features of pulmonary embolism, however, 2D echocardiography can shed light on the right-sided chambers as well. Pulmonary hypertension needs to be ruled out. 3. Anemia of blood loss likely due to warfarin. The patient may be a candidate for IVC filter placement if long-term anticoagulation therapy is contemplated. . I would like to thank, Dr. Cobos, for allowing me to participate in the care of this patient. Alejandro Turner M.D. DR: CAROL JOB#: [id number] CC:
[2016-12-12] VITALS (8 sets, daily range): BP systolic 103–128; BP diastolic 64–77
[2016-12-12] MEDS: DuoNeb 0.5-3(2.5)mg/3ml neb HHN SCH ×3 (03:14→10:30)
[2016-12-12 05:20] LABS: BASOPHILS % (AUTO) 1.1 % (0.0-2.0); EOSINOPHILS % (AUTO) 3.8 % (0.0-3.0); LYMPHOCYTES % (AUTO) 22.1 % (20.0-45.0); MEAN CORPUSCULAR HEMOGLOBIN 23.5 PG (27.0-31.0); MEAN CORPUSCULAR HGB CONC 31.9 G/DL (32.0-36.0); MEAN CORPUSCULAR VOLUME 74 FL (80-99); MEAN PLATELET VOLUME 6.8 FL (6.5-10.1); MONOCYTES % (AUTO) 7.9 % (1.0-10.0); NEUTROPHILS % (AUTO) 65.1 % (45.0-75.0); PLATELET COUNT 247 K/UL (150-450); RED BLOOD COUNT 3.68 M/UL (4.70-6.10); RED CELL DISTRIBUTION WIDTH 25.3 % (11.6-14.8); WHITE BLOOD COUNT 7.8 K/UL (4.8-10.8)
[2016-12-12 05:46] LABS: ANION GAP 16 (5-15); CALCIUM 8.6 mg/dL (8.6-10.2); CARBON DIOXIDE 23 mEQ/L (20-30); CHLORIDE 102 mEQ/L (98-107); CREATININE 1.1 mg/dL (0.7-1.2); GLOMERULAR FILTRATION RATE > 60 mL/min (>60); HEMOLYSIS 3; POTASSIUM 3.9 mEQ/L (3.4-4.9); SODIUM 141 mEQ/L (135-145)
[2016-12-12 06:17] LABS: INR 1.6 (0.9-1.1); PROTHROMBIN TIME 16.9 SEC (9.30-11.50)
[2016-12-12] MEDS ORDERED: Lidocaine 1% MPF 10mg/ml 5ml ONE (11:00)
[2016-12-12] MEDS ORDERED: Propofol 10mg/ml 20ml IV ONE (11:00)
[2016-12-12] MEDS ORDERED: NS 550ML IV ONE (11:15)
--- NOTE | 2016-12-12 11:25 | Pre-Procedure Note/Attestation ---
Pre-Procedure Note/Attestation Complete Prior to Procedure Planned Procedure: not applicable Procedure Narrative: egd Indications for Procedure Pre-Operative Diagnosis: gib Attestation I attest that I discussed the nature of the procedure; its benefits; risks and complications; and alternatives (and the risks and benefits of such alternatives ), prior to the procedure, with the patient (or the patient's legal business banking representative). I attest that, if there was a reasonable possibility of needing a blood transfusion, the patient (or the patient's legal business banking representative) was given the [facility] standardized written summary, pursuant to the Anam Malathi Blood Safety Act ([place] Health and Safety Code # 1645, as amended). I attest that I re-evaluated the patient just prior to the surgery and that there has been no change in the patient's H&P, except as documented below: PETER SHEPPARD Dec 12, 2016 11:25
--- NOTE | 2016-12-12 11:38 | Endoscopy Procedure Note ---
Endoscopy Procedure Note Indication for Procedure: gib Procedures Performed: EGD Operative Findings/Diagnosis: gastritis Specimen: yes Pt Tolerated Procedure Well: Yes Estimated Blood Loss: none Anesthesiologist: terry Anesthesia: MAC Implant(s) used?: No 50 yrs or older w/o bx or poly: Not Applicable 10yrs. F/U not recommended: Not Applicable PETER SHEPPARD Dec 12, 2016 11:38
--- NOTE | 2016-12-12 11:46 | Immediate Post-Op Evaluation ---
Immediate Post-Op Evalulation Immediate Post-Op Evalulation Procedure: EGD Date of Evaluation: Dec 12, 2016 Time of Evaluation: 11:44 IV Fluids: 200 Blood Pressure Systolic: 114 Blood Pressure Diastolic: 75 Pulse Rate: 99 Respiratory Rate: 14 O2 Sat by Pulse Oximetry: 98 Temperature (Fahrenheit): 98.6 Nausea: No Vomiting: No Complications none Patient Status: patent Hydration Status: adequate Drug: none KATHY KINGSLEY CRNA Dec 12, 2016 11:46
--- NOTE | 2016-12-12 11:48 | Anethesia Preoperative Eval ---
Anesthesia Pre-op PMH/ROS General Date of Evaluation: Dec 12, 2016 Time of Evaluation: 11:10 Anesthesiologist: dale ASA Score: ASA 3 Mallampati Score Class I : Soft palate, uvula, fauces, pillars visible Class II: Soft palate, uvula, fauces visible Class III: Soft palate, base of uvula visible Class IV: Only hard plate visible Mallampati Classification: Class III Surgeon: yolis Diagnosis: anemia Surgical Procedure: EGD Anesthesia History: none Allergies: Coded Allergies: NO KNOWN DRUG ALLERGIES (Unverified Allergy, Unknown, 02/20/14) Past Medical History Cardiovascular: Reports: HTN Pulmonary: Reports: COPD, NIKKO Endocrine: Reports: DM HEENT: Denies: [place] (L), [place] (R), cataract (L), cataract (R), glaucoma, other Hematology/Immune: Reports: DVT, anemia Other: obesity Anesthesia Pre-op Phys. Exam Physician Exam Last Vital Signs Date Time Temp Pulse Resp B/P Pulse Ox O2 Delivery O2 Flow Rate FiO2 12/12/16 10:40 105 20 98 Room Air 12/12/16 08:00 98.1 128/77 12/11/16 19:25 21 12/10/16 11:09 2.0 Constitutional: NAD Neurologic: CN 2-12 intact Cardiovascular: RRR, other - st Respiratory: CTA Gastrointestinal: S/NT/ND Airway Exam Mallampati Classification 3 Mallampati Score: Class III MO: full Neck: thick ROM: full Dentures: no lower, no upper Anesthesia Pre-op A/P Labs Hematology Test 12/12/16 03:05 White Blood Count 7.8 K/UL (4.8-10.8) Red Blood Count 3.68 M/UL (4.70-6.10) L Hemoglobin 8.7 G/DL (14.2-18.0) L Hematocrit 27.1 % (42.0-52.0) L Mean Corpuscular Volume 74 FL (80-99) L Mean Corpuscular Hemoglobin 23.5 PG (27.0-31.0) L Mean Corpuscular Hemoglobin Concent 31.9 G/DL (32.0-36.0) L Red Cell Distribution Width 25.3 % (11.6-14.8) H Platelet Count 247 K/UL (150-450) Mean Platelet Volume 6.8 FL (6.5-10.1) Neutrophils (%) (Auto) 65.1 % (45.0-75.0) Lymphocytes (%) (Auto) 22.1 % (20.0-45.0) Monocytes (%) (Auto) 7.9 % (1.0-10.0) Eosinophils (%) (Auto) 3.8 % (0.0-3.0) H Basophils (%) (Auto) 1.1 % (0.0-2.0) Coagulation Test 12/12/16 03:05 Prothrombin Time 16.9 SEC (9.30-11.50) H Prothromb Time International Ratio 1.6 (0.9-1.1) H Activated Partial Thromboplast Time 28 SEC (23-33) Chemistry Test 12/12/16 03:05 Sodium Level 141 mEQ/L (135-145) Potassium Level 3.9 mEQ/L (3.4-4.9) Chloride Level 102 mEQ/L (98-107) Carbon Dioxide Level 23 mEQ/L (20-30) Anion Gap 16 (5-15) H Blood Urea Nitrogen 13 mg/dL (7-23) Creatinine 1.1 mg/dL (0.7-1.2) Estimat Glomerular Filtration Rate > 60 mL/min (>60) Glucose Level 74 mg/dL (74-106) Calcium Level 8.6 mg/dL (8.6-10.2) Pro-B-Type Natriuretic Peptide 458 pg/mL (0-125) H Studies Pre-op Studies: EKG - ST Risk Assessment & Plan Plan: mac Status Change Before Surgery: No Pre-Antibiotics Drug: none KATHY KINGSLEY CRNA Dec 12, 2016 11:48
[2016-12-12] MEDS ORDERED: Nulytely 4L ORAL ONE (13:00)
--- NOTE | 2016-12-12 13:21 | 48 Hour Post Anesthesia Eval ---
Post Anesthesia Evaluation Procedure: EGD Date of Evaluation: Dec 12, 2016 Time of Evaluation: 13:20 Blood Pressure Systolic: 116 0: 70 Pulse Rate: 78 O2 Sat by Pulse Oximetry: 100 Airway: patent Nausea: No Vomiting: No Hydration Status: adequate Cardiopulmonary Status: stable Mental Status/LOC: patient returned to baseline Post-Anesthesia Complications: none Follow-up care needed: N/A KATHY KINGSLEY CRNA Dec 12, 2016 13:21
[2016-12-12] MEDS ORDERED: NS 275ml ONE (14:59)
[2016-12-12] MEDS ORDERED: Tubing IV Secondary IV ONE (14:59)
[2016-12-12] MEDS ORDERED: NS Irrig 4000ml IRRIG ONE (14:59)
[2016-12-12] MEDS ORDERED: Tubing Blood Filter IV ONE (14:59)
--- NOTE | 2016-12-12 16:45 | Procedure Note ---
DATE OF PROCEDURE: 12/12/2016 SURGEON: Uday Vanegas M.D. PROCEDURE: Upper endoscopy with biopsy. ANESTHESIOLOGIST: Candy GUTIERREZ. INSTRUMENT: Olympus adult flexible upper endoscope. INDICATION: Gastrointestinal bleeding. REASON FOR PROCEDURE: The procedure, risks, benefits, and possible consequences, including hemorrhage, aspiration, perforation and infection, and alternative treatments, were explained to the patient/legal guardian by Dr. Uday Vanegas and the patient/legal guardian understood and accepted these risks. DESCRIPTION OF PROCEDURE: After informed consent was obtained and the patient was adequately sedated, Olympus upper endoscope was advanced from mouth into the second portion of duodenum and retroflexion was performed in the stomach. The patient had diffuse gastritis more prominent in the antrum and angularis. Biopsy from antrum was obtained. The patient also had paraesophageal hernia. No evidence of any obvious esophagitis or varices. No active upper gastrointestinal bleeding at this time. Random biopsy from antrum was obtained to rule out H. pylori infection. The patient tolerated the procedure very well without complication. SUMMARY OF FINDINGS: 1. Status post upper endoscopy examination. 2. Gastritis. 3. Paraesophageal hernia. RECOMMENDATIONS: Follow up biopsy results and treat accordingly. The patient needs a colonoscopy tomorrow given no obvious bleeding at this time in the stomach. CT showed no evidence any retroperitoneal bleed. stool OB has been positive so the patient will benefit from colonoscopy tomorrow. I want to thank Dr. Cobos for this kind referral. Uday Vanegas M.D. DR: Serafin JOB#: [id number] CC: Jarod Cobos M.D.; Fax#: [phone]
--- NOTE | 2016-12-12 17:53 | Cardiology Progress Note ---
Assessment/Plan Assessment/Plan 1. Dyspnea. This could be secondary to be profound anemia due to acute blood loss. There is normal LV systolic function. 2. History of deep venous thrombosis. He denies pulmonary embolism but there is mild RV enlargement and mild pulmonary HTN. 3. Anemia of blood loss likely due to warfarin. Subjective Subjective Sinus rhythm at 98. Objective Last 24 Hour Vital Signs Date Time Temp Pulse Resp B/P Pulse Ox O2 Delivery O2 Flow Rate FiO2 12/12/16 14:53 98 20 96 Room Air 12/12/16 14:53 98 20 96 Room Air 12/12/16 13:21 78 100 12/12/16 12:00 98.4 95 24 116/74 99 Room Air 12/12/16 12:00 94 12/12/16 11:50 93 25 111/75 97 Room Air 12/12/16 11:46 99 14 98 12/12/16 11:45 94 22 110/75 95 Room Air 12/12/16 11:38 98.6 96 20 114/75 96 Room Air 12/12/16 10:40 105 20 98 Room Air 12/12/16 10:30 105 20 96 Room Air 12/12/16 08:00 101 12/12/16 08:00 98.1 96 18 128/77 92 Room Air 12/12/16 07:32 108 20 98 Room Air 12/12/16 07:22 108 20 96 Room Air 12/12/16 04:00 96 12/12/16 04:00 97.7 94 21 122/69 98 Room Air 12/12/16 03:26 88 18 98 Room Air 12/12/16 03:16 83 18 95 Room Air 12/12/16 00:00 97.5 92 17 103/64 94 Room Air 12/12/16 00:00 99 12/11/16 23:30 95 18 96 Room Air 12/11/16 23:18 94 18 95 Room Air 12/11/16 20:37 20 Room Air 12/11/16 20:00 97.9 94 20 121/80 97 Room Air 12/11/16 20:00 97 12/11/16 19:25 88 20 97 Room Air 21 12/11/16 19:11 90 22 95 Room Air 21 Intake and Output 12/11/16 12/12/16 19:00 07:00 Intake Total 300 ml 120 ml Balance 300 ml 120 ml Intake Oral 300 ml 120 ml # Voids 3 3 # Bowel Movements 3 2D Echo: EF 60%, TRAY, Mild RVE, Mild MR, Mod TR with RVSP at 45 mmHg Laboratory Tests Test 12/12/16 03:05 White Blood Count 7.8 K/UL (4.8-10.8) Red Blood Count 3.68 M/UL (4.70-6.10) L Hemoglobin 8.7 G/DL (14.2-18.0) L Hematocrit 27.1 % (42.0-52.0) L Mean Corpuscular Volume 74 FL (80-99) L Mean Corpuscular Hemoglobin 23.5 PG (27.0-31.0) L Mean Corpuscular Hemoglobin Concent 31.9 G/DL (32.0-36.0) L Red Cell Distribution Width 25.3 % (11.6-14.8) H Platelet Count 247 K/UL (150-450) Mean Platelet Volume 6.8 FL (6.5-10.1) Neutrophils (%) (Auto) 65.1 % (45.0-75.0) Lymphocytes (%) (Auto) 22.1 % (20.0-45.0) Monocytes (%) (Auto) 7.9 % (1.0-10.0) Eosinophils (%) (Auto) 3.8 % (0.0-3.0) H Basophils (%) (Auto) 1.1 % (0.0-2.0) Prothrombin Time 16.9 SEC (9.30-11.50) H Prothromb Time International Ratio 1.6 (0.9-1.1) H Activated Partial Thromboplast Time 28 SEC (23-33) Sodium Level 141 mEQ/L (135-145) Potassium Level 3.9 mEQ/L (3.4-4.9) Chloride Level 102 mEQ/L (98-107) Carbon Dioxide Level 23 mEQ/L (20-30) Anion Gap 16 (5-15) H Blood Urea Nitrogen 13 mg/dL (7-23) Creatinine 1.1 mg/dL (0.7-1.2) Estimat Glomerular Filtration Rate > 60 mL/min (>60) Glucose Level 74 mg/dL (74-106) Calcium Level 8.6 mg/dL (8.6-10.2) Pro-B-Type Natriuretic Peptide 458 pg/mL (0-125) H Microbiology Date/Time Source Procedure Growth Status 12/10/16 11:00 Blood Blood Culture - Preliminary NO GROWTH AFTER 24 HOURS Resulted 12/10/16 10:45 Blood Blood Culture - Preliminary NO GROWTH AFTER 24 HOURS Resulted Objective HEENT: Atraumatic and normocephalic. Anicteric. Pupils are equal, round, and reactive to light and accommodation. Extraocular muscles intact. NECK: JVP cannot be assessed due to obesity. No carotid bruits. Carotid upstrokes 2+ bilaterally. CARDIOVASCULAR: Normal S1 and S2. Regular rate and rhythm. A 2/6 mid systolic murmur at the left sternal border. PMI is at fourth intercostal space in the midclavicular line. LUNGS: Clear to auscultation bilaterally. ABDOMEN: Soft, nontender, and nondistended. No hepatosplenomegaly. A midline vertical scar is seen. Positive bowel sounds. EXTREMITIES: No evidence of edema, clubbing, or cyanosis. RAMAKRISHNA PAYNE Dec 12, 2016 17:52
[2016-12-13 09:10] LABS: OTHERS PATHOLOGIST COMMENT
--- NOTE | 2016-12-13 13:24 | Discharge Summary ---
Discharge Summary Hospital Course Date of Admission Dec 10, 2016 at 08:53 Date of Discharge Dec 12, 2016 at 15:00 Admitting Diagnosis SOB/anemia HPI Zachary Brown is a 56 year old male who was admitted on Dec 10, 2016 at 08:53 for Shortness Of Breath,Anemia Hospital Course [id number] Discharge Discharge Disposition Patient AMA Discharge Diagnoses: Nubia Regalado NP Dec 13, 2016 13:24
--- NOTE | 2016-12-13 13:25 | Cardiology Report ---
APPROVED REPORT EKG Measurement Heart [id number] Normal sinus rhythm Normal ECG
--- NOTE | 2016-12-13 22:00 | Discharge Summary 2 SIG ---
DATE OF ADMISSION: 12/10/2016 DATE OF DISCHARGE: 12/12/2016 CONSULTANTS: 1. Uday Vanegas M.D. 2. Alejandro Turner M.D. BRIEF HOSPITAL COURSE: The patient is 56-year-old male, with a history of chronic obstructive pulmonary disease and congestive heart failure, who came to the hospital with shortness of breath. He stated that for the last three days, he has been feeling short of breath and had hard time breathing even at rest. His regular inhalers were not helping. He presented to ED and on evaluation, hemoglobin was 3.8, INR was 2.7, and creatinine was 1.7. Chest x-ray showed bilateral interstitial infiltrates. EKG was in normal sinus rhythm with no ischemic changes. He was admitted to [facility]. The patient was on Coumadin for a prior history of DVT. He was given four units of packed RBC blood transfusion, however, remained anemic with hemoglobin of 7. He was given two units more. He was placed on clear liquid diet and given proton pump inhibitors b.i.d. He underwent esophagogastroduodenoscopy on 12/12/2016 with findings of gastritis and paraesophageal hernia. Stool OB was positive. Abdominal and pelvic CT showed no evidence of retroperitoneal hematoma or acute abnormality. He was planned for colonoscopy. Dr. Turner was also consulted for evaluation of shortness of breath. Troponin was negative. Anemia was assessed to be likely due to warfarin and is a good candidate for IVC filter placement for a long-term anticoagulation therapy. Echocardiogram done showed normal left ventricular systolic function, but there is mild RV enlargement and mild pulmonary hypertension. Full treatment was not carried out as the patient signed out against medical advice. FINAL DIAGNOSES: 1. Acute anemia requiring blood transfusion. 2. Hypercoagulable state secondary to Coumadin use. 3. Obesity. 4. Possible pulmonary edema. 5. Old deep venous thrombosis. Venous duplex of lower extremities revealed patent deep venous system bilaterally. 6. Anemia of blood loss likely due to warfarin. 7. Gastritis. 8. Paraesophageal hernia. 9. Noncompliance as the patient signed out against medical advice. Jarod Tirmizi, M.D. I have been assigned to dictate discharge summary on this account and I was not involved in the patient's management. Nubia Regalado N.P. DR: RAFI JOB#: [id number] CC:
== END 2016-12-12 15:00 | disposition left against medical advice (07) | DRG 812 ==
LOC: EMR 07:59 → 2W 08:53 → EDBEDREQ 10:24 → 2W 22:46
PROC: 30233N1 Transfusion of Nonautologous Red Blood Cells into Peripheral Vein, Percutaneous Approach (ICD-10-PCS; principal; 2016-12-10)
PROC: 0DB68ZX Excision of Stomach, Via Natural or Artificial Opening Endoscopic, Diagnostic (ICD-10-PCS; 2016-12-12)
DX: D62 Acute posthemorrhagic anemia (principal); J81.1 Chronic pulmonary edema; D68.59 Other primary thrombophilia; T45.515A Adverse effect of anticoagulants, initial encounter; E66.9 Obesity, unspecified; F19.10 Other psychoactive substance abuse, uncomplicated; I10 Essential (primary) hypertension; Z86.718 Personal history of other venous thrombosis and embolism; G47.33 Obstructive sleep apnea (adult) (pediatric); Z79.01 Long term (current) use of anticoagulants; F15.21 Other stimulant dependence, in remission; K29.70 Gastritis, unspecified, without bleeding; K44.9 Diaphragmatic hernia without obstruction or gangrene; Z91.19 Patient's noncompliance with other medical treatment and regimen
CPT/HCPCS: 36415; 71010; 74177; 80048; 80053; 82270; 82550; 82553; 83036; 83880; 84484; 85007; 85025; 85610; 85730; 86850; 86900; 86901; 86920; 87040; 93005; 93306; 94003; 94150; 94640; 94664; J3430; J7620

== ENCOUNTER 2017-09-26 22:24 | Inpatient (IN) | payer OTHER, MEDICAID ==
[~2017-09-26] VITALS: Ht 180.3 cm; Wt 117.9 kg
--- NOTE | 2017-09-26 22:35 | Emergency Room Report ---
History of Present Illness General Chief Complaint: Syncope Source: Patient, Medical Record, EMS Present Illness HPI This is a 57-year-old male with a history of high blood pressure. He also history of chronic back pain for which he takes oxycodone. He said he took 3 Lyrica because he ran out of his oxycodone. He was making dinner and felt lightheaded. He sat down on the couch and had a syncopal episode. This is witnessed by his significant other. No chest pain today. He said he felt funny. No nausea no vomiting. No palpitation. Better now. Blood pressure low according to EMS. Allergies: Coded Allergies: NO KNOWN DRUG ALLERGIES (Unverified Allergy, Unknown, 02/20/14) Patient History Past Medical History: see triage record, old chart reviewed, HTN Past Surgical History: other Pertinent Family History: none Social History: Denies: smoking Immunizations: other Reviewed Nursing Documentation: PMH: Agreed; PSxH: Agreed Nursing Documentation-PMH Hx Cardiac Problems: Yes - DJD, DVT Hx Hypertension: Yes Hx Pacemaker: No Hx Asthma: No Hx COPD: Yes Hx Diabetes: Yes Hx Cancer: No Hx Gastrointestinal Problems: No Hx Dialysis: No Hx Neurological Problems: No Hx Cerebrovascular Accident: No Hx Seizures: No Review of Systems Eye: Denies: eye pain, blurred vision ENT: Denies: ear pain, nose congestion, throat swelling Respiratory: Denies: cough, shortness of breath Cardiovascular: Denies: chest pain, palpitations Gastrointestinal: Denies: abdominal pain, diarrhea, nausea, vomiting Musculoskeletal: Denies: back pain, joint pain Skin: Denies: rash Neurological: Denies: headache, numbness Endocrine: Denies: increased thirst, increased urine Hematologic/Lymphatic: Denies: easy bruising All Other Systems: negative except mentioned in HPI Physical Exam Vital Signs Date Time Temp Pulse Resp B/P (MAP) Pulse Ox O2 Delivery O2 Flow Rate FiO2 09/26/17 22:17 97.2 99 16 85/49 98 97.2 vitals with low blood pressure Sp02 EP Interpretation: reviewed, normal General Appearance: well appearing, no apparent distress, alert Head: normocephalic, atraumatic Eyes: bilateral eye PERRL, bilateral eye EOMI ENT: hearing grossly normal, normal pharynx Neck: full range of motion, supple, no meningismus Respiratory: chest non-tender, lungs clear, normal breath sounds Cardiovascular #1: regular rate, rhythm, no murmur Gastrointestinal: normal bowel sounds, non tender, no mass, no organomegaly, no bruit, non-distended Musculoskeletal: back normal, gait/station normal, normal range of motion Psychiatric: mood/affect normal Skin: warm/dry Medical Decision Making Diagnostic Impression: Primary Impression: Syncope Qualified Codes: R55 - Syncope and collapse Additional Impressions: ARF (acute renal failure) Qualified Codes: N17.9 - Acute kidney failure, unspecified Amphetamine abuse Hypotension Qualified Codes: I95.9 - Hypotension, unspecified Proteinuria Qualified Codes: R80.9 - Proteinuria, unspecified Anemia Qualified Codes: D64.9 - Anemia, unspecified ER Course Patient presents with syncope. This is probably secondary to dehydration/hypo- tension. Blood pressure improved with IV fluid. His renal failure may be secondary to drug abuse from methamphetamine. Patient told me that he is out of his pain medication because sometime he has to take 2 tablets instead of 1 tablet a day. On the [employer] system, he gets 120 tablets of oxycodone a month. He last picked up his prescription on September 02. When I point this out to the patient he has no answer why he would be short if he only takes one to 2 tablets a day. I suspect and abuse issue going on here. He appear to be withdrawing from opiates now with vomiting. He also said he started having some diarrhea. Drugs is negative for opiates. Because of his renal failure, will admit versus transfer based on his insurance. Patient is otherwise stable for transfer. Patient insurance unable to transfer the patient in a timely manner. Patient will be admitted here under the service of Dr. Cobos. I contacted Dr. Rayo for admission since he is covering for Dr. Cobos. Laboratory Tests Test 09/26/17 22:00 09/26/17 23:45 White Blood Count 6.8 K/UL (4.8-10.8) Red Blood Count 4.56 M/UL (4.70-6.10) L Hemoglobin 8.8 G/DL (14.2-18.0) L Hematocrit 29.9 % (42.0-52.0) L Mean Corpuscular Volume 66 FL (80-99) L Mean Corpuscular Hemoglobin 19.3 PG (27.0-31.0) L Mean Corpuscular Hemoglobin Concent 29.3 G/DL (32.0-36.0) L Red Cell Distribution Width 15.3 % (11.6-14.8) H Platelet Count 333 K/UL (150-450) Mean Platelet Volume 8.2 FL (6.5-10.1) Neutrophils (%) (Auto) 63.8 % (45.0-75.0) Lymphocytes (%) (Auto) 22.5 % (20.0-45.0) Monocytes (%) (Auto) 9.3 % (1.0-10.0) Eosinophils (%) (Auto) 2.1 % (0.0-3.0) Basophils (%) (Auto) 2.4 % (0.0-2.0) H Sodium Level 142 MMOL/L (136-145) Potassium Level 3.7 MMOL/L (3.5-5.1) Chloride Level 105 MMOL/L (98-107) Carbon Dioxide Level 26 MMOL/L (21-32) Anion Gap 11 mmol/L (5-15) Blood Urea Nitrogen 26 mg/dL (7-18) H Creatinine 3.2 MG/DL (0.55-1.30) H Estimat Glomerular Filtration Rate 24.2 mL/min (>60) Glucose Level 109 MG/DL (74-106) H Calcium Level 8.4 MG/DL (8.5-10.1) L Total Bilirubin 0.5 MG/DL (0.2-1.0) Aspartate Amino Transf (AST/SGOT) 27 U/L (15-37) Alanine Aminotransferase (ALT/SGPT) 29 U/L (12-78) Alkaline Phosphatase 55 U/L (46-116) Total Creatine Kinase 596 U/L (26-308) H Creatine Kinase MB 4.2 NG/ML (0.0-3.6) H Creatine Kinase MB Relative Index 0.7 Troponin I 0.000 ng/mL (0.000-0.056) Total Protein 7.8 G/DL (6.4-8.2) Albumin 3.8 G/DL (3.4-5.0) Globulin 4.0 g/dL Albumin/Globulin Ratio 0.9 (1.0-2.7) L Urine Color Yellow Urine Appearance Slightly cloudy Urine pH 5 (4.5-8.0) Urine Specific [place] 1.020 (1.005-1.035) Urine Protein 3+ (NEGATIVE) H Urine Glucose (UA) Negative (NEGATIVE) Urine Ketones Negative (NEGATIVE) Urine Occult Blood 1+ (NEGATIVE) H Urine Nitrite Negative (NEGATIVE) Urine Bilirubin Negative (NEGATIVE) Urine Urobilinogen 1 MG/DL (0.0-1.0) H Urine Leukocyte Esterase 1+ (NEGATIVE) H Urine RBC 2-4 /HPF (0 - 0) H Urine WBC 2-4 /HPF (0 - 0) Urine Squamous Epithelial Cells Few /LPF (NONE/OCC) Urine Amorphous Sediment Few /LPF (NONE) H Urine Bacteria Few /HPF (NONE) Urine Mucus Moderate /LPF (NONE/OCC) H Urine Opiates Screen Negative (NEGATIVE) Urine Barbiturates Screen Negative (NEGATIVE) Phencyclidine (PCP) Screen Negative (NEGATIVE) Urine Amphetamines Screen Positive (NEGATIVE) H Urine Benzodiazepines Screen Negative (NEGATIVE) Urine Cocaine Screen Negative (NEGATIVE) Urine Marijuana (THC) Screen Negative (NEGATIVE) Lab Results Impression labs with acute renal failure EKG Diagnostic Results Rate: normal Rhythm: NSR ST Segments: no acute changes Rhythm Strip Diag. Results Rhythm Strip Time: 22:35 EP Interpretation: yes Rate: 95 Rhythm: NSR, no PVC's, no ectopy Chest X-Ray Diagnostic Results Chest X-Ray Diagnostic Results : Chest X-Ray Ordered: Yes # of Views/Limited/Complete: 1 View Indication: Chest Pain EP Interpretation: Yes Interpretation: no consolidation, no effusion, no pneumothorax, no acute cardiopulmonary disease Impression: No acute disease Electronically Signed by: Homer Cervantes MD Last Vital Signs Date Time Temp Pulse Resp B/P (MAP) Pulse Ox O2 Delivery O2 Flow Rate FiO2 09/26/17 22:17 97.2 99 16 85/49 98 97.2 Status: improved Disposition: ADMITTED INPATIENT Condition: Serious HOMER CERVANTES M.D. Sep 26, 2017 22:35
[2017-09-26 23:00] VITALS: BP 89/52
[2017-09-26 23:25] LABS: BASOPHILS % (AUTO) 2.4 % (0.0-2.0); EOSINOPHILS % (AUTO) 2.1 % (0.0-3.0); HEMATOCRIT 29.9 % (42.0-52.0); HEMOGLOBIN 8.8 G/DL (14.2-18.0); LYMPHOCYTES % (AUTO) 22.5 % (20.0-45.0); MEAN CORPUSCULAR VOLUME 66 FL (80-99); MONOCYTES % (AUTO) 9.3 % (1.0-10.0); NEUTROPHILS % (AUTO) 63.8 % (45.0-75.0); PLATELET COUNT 333 K/UL (150-450); RED BLOOD COUNT 4.56 M/UL (4.70-6.10); RED CELL DISTRIBUTION WIDTH 15.3 % (11.6-14.8); WHITE BLOOD COUNT 6.8 K/UL (4.8-10.8)
[2017-09-26 23:36] LABS: ANION GAP 11 mmol/L (5-15); BLOOD UREA NITROGEN 26 mg/dL (7-18); CALCIUM 8.4 MG/DL (8.5-10.1); CARBON DIOXIDE 26 MMOL/L (21-32); CHLORIDE 105 MMOL/L (98-107); CREATININE 3.2 MG/DL (0.55-1.30); POTASSIUM 3.7 MMOL/L (3.5-5.1); SODIUM 142 MMOL/L (136-145)
[2017-09-26 23:50] LABS: ALANINE AMINOTRANSFERASE 29 U/L (12-78); ALBUMIN 3.8 G/DL (3.4-5.0); ALBUMIN/GLOBULIN RATIO 0.9 (1.0-2.7); ALKALINE PHOSPHATASE 55 U/L (46-116); ASPARTATE AMINO TRANSFERASE 27 U/L (15-37); BILIRUBIN,TOTAL 0.5 MG/DL (0.2-1.0); CKMB 4.2 NG/ML (0.0-3.6); CREATINE KINASE 596 U/L (26-308)
[2017-09-26 23:53] LABS: APPEARANCE,URINE SLIGHTLY CLOUDY; BILIRUBIN, URINE NEGATIVE (NEGATIVE); GLUCOSE, URINE (UA) NEGATIVE (NEGATIVE); KETONES,URINE NEGATIVE (NEGATIVE); LEUKOCYTE ESTERASE ,URINE 1+ (NEGATIVE); NITRITE,URINE NEGATIVE (NEGATIVE); PH,URINE 5 (4.5-8.0); PROTEIN,URINE 3+ (NEGATIVE); UROBILINOGEN,URINE 1 MG/DL (0.0-1.0)
[2017-09-26 23:55] LABS: COLOR,URINE YELLOW
[2017-09-27] VITALS (9 sets, daily range): BP systolic 103–136; BP diastolic 66–91
[2017-09-27] MEDS ORDERED: LYRICA100 MG ORAL (04:35)
[2017-09-27] MEDS ORDERED: Zolpidem 5mg tab ORAL PRN (08:00)
[2017-09-27] MEDS ORDERED: Milk of Magnesia 30ml Ud ORAL PRN (08:00)
[2017-09-27] MEDS ORDERED: Heparin 5000 units/ml inj SUBQ SCH (09:00)
[2017-09-27] MEDS ORDERED: Warfarin Sodium 5mg ORAL SCH (09:00)
--- NOTE | 2017-09-27 09:11 | Diagnostic Imaging Report ---
Indication: Reason For Exam: CP Technique: XRAY Chest 1v Comparison:12/10/2016 Findings: Heart is normal in size. A rounded density with central lucency is again seen in the left lung base. Lungs are clear. No pleural fluid. Bony structures are unremarkable. Impression: Hiatal hernia or paraesophageal hernia. No acute abnormality.
[2017-09-27] MEDS: Norco 5mg/325mg tab ORAL PRN ×3 (09:34→22:12)
[2017-09-27] MEDS: Aspirin Baby 81mg ORAL SCH (09:35)
[2017-09-27] MEDS: Guaifenesin/DM 10ml syrup ORAL PRN ×3 (09:36→22:12)
[2017-09-27] MEDS: Pantoprazole Inj IV SCH (09:37)
[2017-09-27] MEDS: Lisinopril 10mg tab ORAL SCH (09:40)
[2017-09-27] MEDS ORDERED: traMADol 50mg tab ORAL PRN (10:00)
[2017-09-27] MEDS: BuPROPion SR 150mg tab ORAL SCH (10:44)
[2017-09-27] MEDS: Heparin 5000 units/ml inj SUBQ SCH ×2 (10:46→21:00)
[2017-09-27] MEDS: Lyrica 50mg cap ORAL SCH ×2 (12:14→17:08)
[2017-09-27] MEDS: Albuterol 90mcg Inhaler 8gm INH SCH ×2 (13:50→19:00)
--- NOTE | 2017-09-27 18:00 | History and Physical Report ---
DATE OF ADMISSION: 09/27/2017 REASON FOR ADMISSION: Possible syncope. HISTORY OF PRESENT ILLNESS: The patient is a 57-year-old male, admitted with questionable syncopal episode, which was witnessed. The patient also has chronic back pain and takes oxycodone. The patient also has cough and mild sputum production. The patient denies any chest pain. Denies any tachyarrhythmias. Denies any seizures. No incontinence. The patient is admitted now for further evaluation. PAST MEDICAL HISTORY: Reviewed, include DJD, DVT, hypertension, and diabetes. MEDICATIONS: Reviewed. ALLERGIES: Reviewed. SOCIAL HISTORY: Noted and reviewed. The patient lives at home. PHYSICAL EXAMINATION: GENERAL: A well-developed male, comfortable, alert, oriented x3. VITAL SIGNS: Otherwise stable. LUNGS: Fairly clear. No rhonchi or wheezes. CARDIAC: Normal S1, S2. Regular rhythm. No clear murmurs, rubs, or gallops. ABDOMEN: Soft, nontender, and nondistended. EXTREMITIES: With mild edema. NEUROLOGIC: Grossly nonfocal. Alert and oriented x3. Able to move all extremities. Able to verbalize needs. LABORATORY DATA: Reviewed. Hemoglobin 8.8. Chemistry as noted. BUN is 26, creatinine 3.2. CK is 586. Troponin is otherwise negative. The urine toxicology screen positive for amphetamines. Urinalysis, 2 to 4 white cells. IMPRESSION: 1. Syncope of unclear etiology, possibly vasovagal. 2. Mild cough and congestion. 3. Chronic pain syndrome. 4. Hypertension per history. 5. Evidence of chronic renal failure, possibly with an acute component. RECOMMENDATIONS: Supportive care. Blood pressure management. IV hydration. Pain control. Cough syrup as needed. Monitor clinically for change. Albuterol as needed. Obtain carotid ultrasound. Obtain echocardiogram. Follow up labs, and if troponins are all negative, we will proceed with discharge planning. Gulshan Rayo M.D. DR: JACEK JOB#: [id number] CC:
--- NOTE | 2017-09-27 18:07 | Cardiology Report ---
APPROVED REPORT EKG Measurement Heart [id number] Normal sinus rhythm Normal ECG
[2017-09-28] VITALS: BP 129/94
[2017-09-28] MEDS: Albuterol 90mcg Inhaler 8gm INH SCH ×4 (01:00→19:00)
[2017-09-28 08:00] VITALS: BP 144/83
[2017-09-28] MEDS: Aspirin Baby 81mg ORAL SCH (08:44)
[2017-09-28] MEDS: Pantoprazole Inj IV SCH (08:44)
[2017-09-28] MEDS: Lyrica 50mg cap ORAL SCH ×3 (08:45→17:16)
[2017-09-28] MEDS: BuPROPion SR 150mg tab ORAL SCH (08:45)
[2017-09-28] MEDS: Lisinopril 10mg tab ORAL SCH (08:46)
[2017-09-28] MEDS: Heparin 5000 units/ml inj SUBQ SCH ×2 (08:47→21:16)
[2017-09-28] MEDS: Norco 5mg/325mg tab ORAL PRN ×2 (11:13→19:28)
[2017-09-28 11:45] VITALS: BP 146/94
--- NOTE | 2017-09-28 11:50 | General Progress Note ---
Assessment/Plan Assessment/Plan IMPRESSION: 1. Syncope of unclear etiology, possibly vasovagal. 2. Mild cough and congestion. 3. Chronic pain syndrome. 4. Hypertension per history. 5. Evidence of chronic renal failure, possibly with an acute component. 6. anemia PLAN finalize care await echo and carotid US neb therapy oxygen await repeat labs with abnormal HH and renal findings dc in am if stable Subjective Allergies: Coded Allergies: NO KNOWN DRUG ALLERGIES (Unverified Allergy, Unknown, 02/20/14) Subjective has some sob has mild congestion Objective Last 24 Hour Vital Signs Date Time Temp Pulse Resp B/P (MAP) Pulse Ox O2 Delivery O2 Flow Rate FiO2 09/28/17 11:45 97.5 96 19 146/94 95 97.5 09/28/17 11:13 97.0 09/28/17 08:46 144/83 09/28/17 08:46 103 144/83 09/28/17 08:40 Room Air 09/28/17 08:39 Room Air 09/28/17 08:00 97.0 20 144/83 97 97.0 09/28/17 08:00 105 09/28/17 04:00 103 09/28/17 03:14 Room Air 09/28/17 03:13 Room Air 09/28/17 00:00 110 09/28/17 00:00 97.2 104 20 129/94 96 97.2 09/27/17 22:12 97.0 09/27/17 20:18 Room Air 09/27/17 20:18 Room Air 09/27/17 20:06 97.0 104 20 136/91 94 97.0 09/27/17 20:00 100 09/27/17 18:16 97.1 09/27/17 17:17 97.1 09/27/17 16:00 99 09/27/17 16:00 97.1 102 20 120/70 99 Room Air 97.1 09/27/17 13:50 Room Air 21.0 09/27/17 13:50 Room Air 21 09/27/17 12:05 98.1 97 21 122/74 95 Room Air 98.1 09/27/17 12:00 89 Intake and Output 09/27/17 09/28/17 19:00 07:00 Intake Total 1847 ml Output Total 950 ml 800 ml Balance 897 ml -800 ml Intake Oral 900 ml IV Total 947 ml Output Urine Total 950 ml 800 ml # Voids 2 Height (Feet): 5 Height (Inches): 11.00 Weight (Pounds): 260 Objective GENERAL: A well-developed male, comfortable, alert, oriented x3. VITAL SIGNS: Otherwise stable. LUNGS: some rhonchi noted CARDIAC: Normal S1, S2. Regular rhythm. No clear murmurs, rubs, or gallops. ABDOMEN: Soft, nontender, and nondistended. EXTREMITIES: With mild edema.persistent NEUROLOGIC: Grossly nonfocal. Alert and oriented x3. Able to move all extremities. Able to verbalize needs. BRYCE CHERRY Sep 28, 2017 11:50
[2017-09-28 13:10] LABS: HEMATOCRIT 26.3 % (42.0-52.0); HEMOGLOBIN 7.9 G/DL (14.2-18.0); MEAN CORPUSCULAR VOLUME 66 FL (80-99); PLATELET COUNT 245 K/UL (150-450); RED BLOOD COUNT 4.01 M/UL (4.70-6.10); RED CELL DISTRIBUTION WIDTH 15.5 % (11.6-14.8); WHITE BLOOD COUNT 6.1 K/UL (4.8-10.8)
[2017-09-28 13:29] LABS: ANION GAP 5 mmol/L (5-15); BLOOD UREA NITROGEN 20 mg/dL (7-18); CALCIUM 8.4 MG/DL (8.5-10.1); CARBON DIOXIDE 27 MMOL/L (21-32); CHLORIDE 110 MMOL/L (98-107); CREATININE 1.1 MG/DL (0.55-1.30); POTASSIUM 4.6 MMOL/L (3.5-5.1); SODIUM 142 MMOL/L (136-145)
[2017-09-28] MEDS: Albuterol/Ipratropium 3ml neb HHN SCH ×2 (13:29→19:15)
[2017-09-28 15:51] VITALS: BP 121/76
[2017-09-28 20:00] VITALS: BP 144/84
[2017-09-29] VITALS: BP 139/81
[2017-09-29] MEDS: Albuterol/Ipratropium 3ml neb HHN SCH ×2 (00:57→07:00)
[2017-09-29] MEDS: Albuterol 90mcg Inhaler 8gm INH SCH (00:57)
[2017-09-29 04:00] VITALS: BP 124/94
[2017-09-29] MEDS: Norco 5mg/325mg tab ORAL PRN (04:30)
[2017-09-29 08:00] VITALS: BP 127/98
--- NOTE | 2017-09-29 08:13 | Cardiology Report ---
APPROVED REPORT EXAM: Two-dimensional and M-mode echocardiogram with Doppler and color Doppler. INDICATION Syncope M-Mode DIMENSIONS IVSd0.8 (0.7-1.1cm)Left Atrium (MM)3.1 (1.6-4.0cm) LVDd4.3 (3.5-5.6cm)Aortic Root3.3 (2.0-3.7cm) PWd1.0 (0.7-1.1cm)Aortic Cusp Exc.1.9 (1.5-2.0cm) LVDs2.6 (2.5-4.0cm) PWs1.1 cm Technically difficult study due to poor acoustical windows. Normal left ventricular chamber size, systolic function and wall motion. Left ventricular ejection fraction estimated to be 60-65%. No evidence of left ventricular hypertrophy. No evidence of pericardial or pleural effusion. Right cardiac chamber sizes are within normal limits. Mild left atrial enlargement by 2D. Focal aortic valve sclerosis with adequate cusp excursion. Thickened mitral valve leaflets with normal excursion. Mild mitral annulus and aortic root calcification. Pulmonic valve is well visualized. Normal tricuspid valve structure. IVC is not obtainable. A color flow and spectral Doppler study was performed and revealed: No aortic regurgitation. No mitral regurgitation. Mitral diastolic velocities suggest reduced left ventricular relaxation c/w diastolic dysfunction grade 1. Trace tricuspid regurgitation. Tricuspid systolic velocities suggests peak right ventricular systolic pressure of 32 mmHg
[2017-09-29] MEDS: Aspirin Baby 81mg ORAL SCH (08:50)
[2017-09-29] MEDS: Lyrica 50mg cap ORAL SCH (08:51)
[2017-09-29] MEDS: BuPROPion SR 150mg tab ORAL SCH (08:51)
[2017-09-29 08:53] VITALS: BP 127/98
[2017-09-29] MEDS: Pantoprazole Inj IV SCH (08:53)
[2017-09-29] MEDS: Lisinopril 10mg tab ORAL SCH (08:53)
[2017-09-29 08:56] LABS: BASOPHILS % (AUTO) 1.4 % (0.0-2.0); EOSINOPHILS % (AUTO) 4.8 % (0.0-3.0); HEMOGLOBIN 9.6 G/DL (14.2-18.0); LYMPHOCYTES % (AUTO) 28.2 % (20.0-45.0); MEAN CORPUSCULAR VOLUME 69 FL (80-99); MONOCYTES % (AUTO) 9.4 % (1.0-10.0); NEUTROPHILS % (AUTO) 56.2 % (45.0-75.0); PLATELET COUNT 253 K/UL (150-450); RED BLOOD COUNT 4.65 M/UL (4.70-6.10); RED CELL DISTRIBUTION WIDTH 17.7 % (11.6-14.8); WHITE BLOOD COUNT 7.2 K/UL (4.8-10.8)
[2017-09-29] MEDS: Heparin 5000 units/ml inj SUBQ SCH (08:57)
[2017-09-29] MEDS ORDERED: Tubing Blood Filter IV ONE (09:03)
[2017-09-29] MEDS ORDERED: NS 275ml ONE (09:03)
--- NOTE | 2017-09-29 09:17 | Pulmonology Progress Note ---
Assessment/Plan Assessment/Plan 1. Syncope of unclear etiology, possibly vasovagal. 2. Mild cough and congestion. 3. Chronic pain syndrome. 4. Hypertension per history. 5. Evidence of chronic renal failure, possibly with an acute component. 6. anemia; s/p prbc PLAN Counselled re Amphetamine USe Recommended outpt PSG for snoring at night Will dc home Subjective Interval Events: S/p prbc Constitutional: Reports: no symptoms HEENT: Repors: no symptoms Respiratory: Reports: no symptoms Cardiovascular: Reports: no symptoms Gastrointestinal/Abdominal: Reports: no symptoms Allergies: Coded Allergies: NO KNOWN DRUG ALLERGIES (Unverified Allergy, Unknown, 02/20/14) Objective Last 24 Hour Vital Signs Date Time Temp Pulse Resp B/P (MAP) Pulse Ox O2 Delivery O2 Flow Rate FiO2 09/29/17 08:53 127/98 09/29/17 08:53 90 127/98 09/29/17 04:00 91 09/29/17 04:00 98.1 92 20 124/94 100 Room Air 98.1 09/29/17 01:08 92 19 95 Room Air 21 09/29/17 00:55 92 19 95 Room Air 21 09/29/17 00:55 21 09/29/17 00:00 97.8 86 19 139/81 99 Room Air 97.8 09/29/17 00:00 89 09/28/17 20:00 97.5 80 20 144/84 98 Room Air 97.5 09/28/17 20:00 86 09/28/17 19:25 92 19 95 Room Air 21.0 21 09/28/17 19:14 92 19 95 Room Air 21 09/28/17 19:14 21 09/28/17 16:00 92 09/28/17 15:51 98.1 95 19 121/76 95 Room Air 98.1 09/28/17 13:34 86 20 100 Room Air 09/28/17 13:33 93 20 95 Room Air 09/28/17 12:12 97.5 09/28/17 12:00 97 09/28/17 11:45 97.5 96 19 146/94 95 97.5 09/28/17 11:13 97.0 Intake and Output 09/28/17 09/29/17 19:00 07:00 Intake Total 880 ml 440 ml Output Total 500 ml 1300 ml Balance 380 ml -860 ml Intake Oral 880 ml 440 ml Output Urine Total 500 ml 1300 ml # Voids 4 General Appearance: no acute distress HEENT: normocephalic Respiratory/Chest: chest wall non-tender, lungs clear Cardiovascular: normal peripheral pulses, normal rate Abdomen: normal bowel sounds Laboratory Tests 09/28/17 12:20: White Blood Count 6.1, Red Blood Count 4.01L, Hemoglobin 7.9L, Hematocrit 26.3L , Mean Corpuscular Volume 66L, Mean Corpuscular Hemoglobin 19.7L, Mean Corpuscular Hemoglobin Concent 30.0L, Red Cell Distribution Width 15.5H, Platelet Count 245, Mean Platelet Volume 7.4, Neutrophils (%) (Auto) , Lymphocytes (%) (Auto) , Monocytes (%) (Auto) , Eosinophils (%) (Auto) , Basophils (%) (Auto) , Differential Total Cells Counted 100, Neutrophils % ( Manual) 52, Lymphocytes % (Manual) 37, Monocytes % (Manual) 10, Eosinophils % ( Manual) 1, Basophils % (Manual) 0, Band Neutrophils 0, Platelet Estimate Adequate, Platelet Morphology Normal, Hypochromasia 1+, Anisocytosis 1+, Microcytosis 2+, Sodium Level 142, Potassium Level 4.6, Chloride Level 110H, Carbon Dioxide Level 27, Anion Gap 5, Blood Urea Nitrogen 20H, Creatinine 1.1, Estimat Glomerular Filtration Rate > 60, Glucose Level 87, Calcium Level 8.4L, Troponin I 0.005 09/29/17 07:20: White Blood Count 7.2, Red Blood Count 4.65L, Hemoglobin 9.6L, Hematocrit 32.0L , Mean Corpuscular Volume 69L, Mean Corpuscular Hemoglobin 20.6L, Mean Corpuscular Hemoglobin Concent 29.9L, Red Cell Distribution Width 17.7H, Platelet Count 253, Mean Platelet Volume 8.6, Neutrophils (%) (Auto) 56.2, Lymphocytes (%) (Auto) 28.2, Monocytes (%) (Auto) 9.4, Eosinophils (%) (Auto) 4.8H, Basophils (%) (Auto) 1.4, Sodium Level [Pending], Potassium Level [Pending ], Chloride Level [Pending], Carbon Dioxide Level [Pending], Blood Urea Nitrogen [Pending], Creatinine [Pending], Estimat Glomerular Filtration Rate [ Pending], Glucose Level [Pending], Calcium Level [Pending], Troponin I [Pending] Current Medications Medications (Trade) Dose Ordered Sig/Cory Route PRN Reason Start Time Stop Time Status Last Admin Dose Admin Acetaminophen (Tylenol) 650 mg Q4H PRN ORAL Mild Pain (Pain Scale 1-3) 09/27/17 08:00 10/27/17 07:59 Acetaminophen/ Hydrocodone Bitart ([place] 5/325) 1 tab Q4H PRN ORAL Moderate Pain (Pain Scale 4-6) 09/27/17 08:00 10/04/17 07:59 09/29/17 04:30 Albuterol Sulfate (Proventil MDI) 1 puff Q6HRT INH 09/27/17 13:00 10/27/17 12:59 Albuterol/ Ipratropium (Albuterol/ Ipratropium) 3 ml Q6HRT HHN 09/28/17 13:00 10/03/17 12:59 09/29/17 00:57 Amitriptyline HCl (Elavil) 25 mg BEDTIME ORAL 09/27/17 21:00 10/27/17 20:59 09/28/17 21:13 Amlodipine Besylate (Norvasc) 10 mg DAILY ORAL 09/27/17 09:00 10/27/17 08:59 09/29/17 08:53 Aspirin (ASA) 81 mg DAILY ORAL 09/27/17 09:00 10/27/17 08:59 09/29/17 08:50 Bupropion HCl (Wellbutrin SR) 150 mg DAILY ORAL 09/27/17 10:30 10/27/17 10:29 09/29/17 08:51 Guaifenesin/ Dextromethorphan (Robitussin DM Syrup) 15 ml Q4H PRN ORAL For Cough 09/27/17 08:00 10/27/17 07:59 09/27/17 22:12 Heparin Sodium (Porcine) (Heparin 5000 units/ml) 5,000 units EVERY 12 HOURS SUBQ 09/27/17 10:30 10/27/17 10:29 09/29/17 08:57 Lisinopril (Zestril) 10 mg DAILY ORAL 09/27/17 09:00 10/27/17 08:59 09/29/17 08:53 Magnesium Hydroxide (Mom) 30 ml HSPRN PRN ORAL Constipation 09/27/17 08:00 10/27/17 07:59 Pantoprazole (Protonix) 40 mg DAILY IV 09/27/17 09:00 10/27/17 08:59 09/29/17 08:53 Pregabalin (Lyrica) 100 mg THREE TIMES A DAY ORAL 09/27/17 13:00 10/27/17 12:59 09/29/17 08:51 Sodium Chloride 1,000 ml @ 100 mls/hr Q10H IV 09/27/17 09:00 10/27/17 08:59 09/29/17 01:11 Tramadol HCl (Ultram) 50 mg Q6H PRN ORAL Breakthru Pain 09/27/17 10:00 10/04/17 09:59 Zolpidem Tartrate (Ambien) 5 mg HSPRN PRN ORAL Insomnia 09/27/17 08:00 10/04/17 07:59 Jarod Cobos MD Sep 29, 2017 09:17
[2017-09-29 09:53] LABS: ANION GAP 7 mmol/L (5-15); BLOOD UREA NITROGEN 20 mg/dL (7-18); CALCIUM 8.6 MG/DL (8.5-10.1); CARBON DIOXIDE 27 MMOL/L (21-32); CHLORIDE 106 MMOL/L (98-107); POTASSIUM 4.7 MMOL/L (3.5-5.1); SODIUM 140 MMOL/L (136-145)
--- NOTE | 2017-09-29 18:48 | Cardiology Report ---
APPROVED REPORT EKG Measurement Heart [id number] Normal sinus rhythm Normal ECG
--- NOTE | 2017-09-30 09:26 | Discharge Summary ---
Discharge Summary Discharge Summary Discharge Summary DATE OF ADMISSION: 09/27/2017 DATE OF DISCHARGE: 09/29/2017 REASON FOR ADMISSION: 57 years old male with past medical history significant for DVT, hypertension , chronic back pain ( on oxycodone), presented to the emergency department after witnessed syncopal episode. According to patient, he ran out of oxycodone and took 3 Lyrica instead. He was making dinner and felt lightheaded and subsequently sustained syncopal episode. Syncopal episode was witnessed by his significant other. No chest pain, no shortness of breath, but reported mild cough and congestion. Denied palpitations. No nausea, no vomiting. Blood pressure 85/49. Troponin negative. EKG revealed normal sinus rhythm, no acute ischemic changes. Urine tox screen was positive for amphetamine. BUN 26, creatinine 3.2. Patient was admitted with a syncopal episode of unclear etiology. HOSPITAL COURSE: Patient admitted to telemetry floor. Patient started on intravenous hydration . Blood pressure was closely monitored. Blood pressure responded to intravenous hydration and antihypertensive regimen thereafter was cautiously restarted. Pain management provided judiciously. Supplemental oxygen and pulmonary toilet with bronchodilator provided as needed. Antitussive provided as needed. Afebrile, no leucocytosis. Chest x-ray revealed no acute cardiopulmonary pathology. Echocardiogram revealed preserved ejection fraction of 60-65% and right ventricular systolic pressure of 32. Troponin 3 were negative. EKG revealed no acute ischemic changes, therefore patient was ruled out for acute HI. Telemetry showed no evidence of arrhythmia. Carotid duplex was essentially negative. Renal parameters were closely monitored, electrolytes corrected as needed. Nephrotoxins were avoided. Prior to discharge BUN down to 20, creatinine down to 1.0. Acute renal failure was likely secondary to dehydration and resolved with IV hydration. Syncopal episode was probably due to combination of hypotension and effect of excessive medication ( i.e. Lyrica 3). Patient required blood transfusion due to anemia. Patient undergone transfusion of 2 units of packed red blood cells. Prior to discharge hemoglobin-9.6 hematocrit -32. DVT and GI prophylaxis provided. Fall precautions were maintained. Patient seen and evaluated by physical therapist and per physical therapist conclusion was safe for discharge home. Patient was recommended outpatient sleep study for snoring at night. Patient was counseled t on abstinence from illicit street drugs. Patient was stable for discharge FINAL DIAGNOSES: 1. Syncope of unclear etiology, possibly due to combination of hypotension and effects of medication (took excessive amounts of Lyrica) 2. Hypotension ( on presentation) with history of hypertension. 8. Chronic pain syndrome. 4. Acute on chronic renal failure, probably secondary to dehydration. 5. Anemia requiring blood transfusion. 6. Amphetamine use. 7. Mild cough and congestion. DISCHARGE MEDICATIONS: See Medication Reconciliation list. DISCHARGE INSTRUCTIONS: Patient was discharged home . Follow up with primary care provider in one week. patient to follow up with sleep study for snoring as recommended by catalogue librarian. I have been assigned to dictate discharge summary for this account. I was not involved in the patient's management. Andrae (Jenny Santoyo NP Sep 30, 2017 09:26
--- NOTE | 2017-10-02 08:15 | Diagnostic Imaging Report ---
APPROVED REPORT CPT Code: 99880 Vascular Symptoms Syncope Doppler Spectral Velocity Analysis RightLeft RIGHT SIDE: CCA - Imaging reveals no significant plaque within the extracranial carotid arteries. The Doppler spectral flow analysis is within normal limits throughout the extracranial carotid arteries. VERTEBRAL - The vertebral artery is within normal limits. LEFT SIDE: CCA/BULB - Imaging reveals irregular, minimal plaque in the left carotid bulb. arteries. VERTEBRAL - The vertebral artery is within normal limits.
== END 2017-09-29 13:20 | disposition home or self-care (01) | DRG 918 ==
LOC: EDBD 22:24 → EMR 22:35 → 2E 09-27 03:08 → EDBEDREQ 09-27 03:36
PROC: 30233N1 Transfusion of Nonautologous Red Blood Cells into Peripheral Vein, Percutaneous Approach (ICD-10-PCS; principal; 2017-09-28)
DX: T42.6X1A Poisoning by other antiepileptic and sedative-hypnotic drugs, accidental (unintentional), initial encounter (principal); N17.9 Acute kidney failure, unspecified; I95.9 Hypotension, unspecified; R55 Syncope and collapse; G89.4 Chronic pain syndrome; I12.9 Hypertensive chronic kidney disease with stage 1 through stage 4 chronic kidney disease, or unspecified chronic kidney disease; N18.9 Chronic kidney disease, unspecified; E86.0 Dehydration; D64.9 Anemia, unspecified; R05 Cough; M19.90 Unspecified osteoarthritis, unspecified site; Z86.718 Personal history of other venous thrombosis and embolism; E11.22 Type 2 diabetes mellitus with diabetic chronic kidney disease
CPT/HCPCS: 36415; 71045; 80048; 80053; 80307; 81003; 82550; 82553; 82962; 84484; 85007; 85025; 86850; 86900; 86901; 86920; 93005; 93306; 93880; 94640; 99285; J2405; J7620

== ENCOUNTER 2018-01-01 23:46 | Inpatient (IN) | payer OTHER, MEDICAID ==
[~2018-01-01] VITALS: Ht 182.9 cm; Wt 134.3 kg
[~2018-01-01 23:46] MED LIST changes: +LYRICA100 MG ORAL
[2018-01-02] VITALS (9 sets, daily range): BP systolic 93–143; BP diastolic 48–85
[2018-01-02] MEDS ORDERED: Solu-MEDROL 125mg Inj IVP ONE (00:15)
[2018-01-02] MEDS ORDERED: Albuterol/Ipratropium 3ml neb HHN ONE (00:15)
[2018-01-02 00:42] LABS: HEMATOCRIT 21.3 % (42.0-52.0); MEAN CORPUSCULAR VOLUME 67 FL (80-99); PLATELET COUNT 201 K/UL (150-450); RED BLOOD COUNT 3.16 M/UL (4.70-6.10); RED CELL DISTRIBUTION WIDTH 16.5 % (11.6-14.8); WHITE BLOOD COUNT 19.4 K/UL (4.8-10.8)
[2018-01-02 00:51] LABS: HEMOGLOBIN 6.5 G/DL (14.2-18.0)
[2018-01-02 00:53] LABS: ANION GAP 4 mmol/L (5-15); BLOOD UREA NITROGEN 66 mg/dL (7-18); CALCIUM 8.3 MG/DL (8.5-10.1); CARBON DIOXIDE 31 MMOL/L (21-32); CHLORIDE 105 MMOL/L (98-107); CREATININE 2.8 MG/DL (0.55-1.30); INR 1.1 (0.9-1.1); POTASSIUM 4.8 MMOL/L (3.5-5.1); SODIUM 140 MMOL/L (136-145)
[2018-01-02] MEDS ORDERED: Pantoprazole Inj IVP ONE (01:00)
[2018-01-02 01:17] LABS: ALANINE AMINOTRANSFERASE 30 U/L (12-78); ALBUMIN 3.1 G/DL (3.4-5.0); ALBUMIN/GLOBULIN RATIO 0.9 (1.0-2.7); ALKALINE PHOSPHATASE 35 U/L (46-116); ASPARTATE AMINO TRANSFERASE 31 U/L (15-37); BILIRUBIN,TOTAL 0.8 MG/DL (0.2-1.0); CKMB 3.3 NG/ML (0.0-3.6); CREATINE KINASE 1314 U/L (26-308)
[2018-01-02 02:04] LABS: APPEARANCE,URINE CLEAR; BILIRUBIN, URINE NEGATIVE (NEGATIVE); GLUCOSE, URINE (UA) NEGATIVE (NEGATIVE); KETONES,URINE NEGATIVE (NEGATIVE); LEUKOCYTE ESTERASE ,URINE NEGATIVE (NEGATIVE); NITRITE,URINE NEGATIVE (NEGATIVE); PH,URINE 6 (4.5-8.0); PROTEIN,URINE NEGATIVE (NEGATIVE); UROBILINOGEN,URINE 1 MG/DL (0.0-1.0)
[2018-01-02 02:09] LABS: COLOR,URINE YELLOW
--- NOTE | 2018-01-02 02:45 | Emergency Room Report ---
History of Present Illness General Chief Complaint: Dyspnea/Respdistress Source: Patient, Medical Record Present Illness HPI This is a 57-year-old male with multiple medical problems. He presents with chief complaint of weakness and shortness of breath. Also with fever. Today when he got up he felt weak and short of breath. He also had fever this morning. Also said that for the last couple days his stool have been very black. Also coughing up specks of blood. Denies any alcohol use. Denies any drug use. Does have some mild epigastric pain. Coughing is nonproductive in nature. Fever subjective in occurred earlier today. Worse with exertion. No chest pain. No nausea no vomiting. Allergies: Coded Allergies: NO KNOWN DRUG ALLERGIES (Unverified Allergy, Unknown, 02/20/14) Patient History Past Medical History: see triage record, old chart reviewed, DM, HTN, CAD, COPD Past Surgical History: other Pertinent Family History: none Social History: Reports: smoking Immunizations: other Reviewed Nursing Documentation: PMH: Agreed; PSxH: Agreed Nursing Documentation-PMH Hx Cardiac Problems: Yes - DJD, DVT, "irregular heartbeat" Hx Hypertension: Yes Hx Pacemaker: No Hx Asthma: No Hx COPD: Yes Hx Diabetes: Yes Hx Cancer: No Hx Gastrointestinal Problems: No Hx Dialysis: No Hx Neurological Problems: No Hx Cerebrovascular Accident: No Hx Seizures: No Review of Systems Constitutional: Reports: fever, malaise Eye: Denies: eye pain, blurred vision ENT: Denies: ear pain, nose congestion, throat swelling Respiratory: Reports: shortness of breath, MIX Cardiovascular: Denies: chest pain, palpitations Gastrointestinal: Reports: abdominal pain Musculoskeletal: Denies: back pain, joint pain Skin: Denies: rash Neurological: Denies: headache, numbness Endocrine: Denies: increased thirst, increased urine Hematologic/Lymphatic: Denies: easy bruising All Other Systems: negative except mentioned in HPI Physical Exam Vital Signs Date Time Temp Pulse Resp B/P (MAP) Pulse Ox O2 Delivery O2 Flow Rate FiO2 01/01/18 23:54 98.9 127 24 89/44 92 Room Air 99.0 01/02/18 00:16 28 vitals with hypotension, tachycardia, and hypoxia Sp02 EP Interpretation: abnormal General Appearance: moderate distress Head: normocephalic, atraumatic Eyes: bilateral eye PERRL, bilateral eye EOMI ENT: hearing grossly normal, normal pharynx Neck: full range of motion, supple, no meningismus Respiratory: chest non-tender, respiratory distress, decreased breath sounds, rhonchi, wheezing Cardiovascular #1: regular rate, rhythm, no murmur, tachycardia Gastrointestinal: normal bowel sounds, non tender, no mass, no organomegaly, no bruit, non-distended Musculoskeletal: back normal, gait/station normal, normal range of motion Neurologic: alert, oriented x3 Psychiatric: mood/affect normal Skin: warm/dry Procedures Critical Care Time Critical Care Time Critical care is mandated in this patient who presented with respiratory distress and GI bleeding. Patient require my urgent intervention to attenuate the risks of metabolic labs which may lead to cardiovascular collapse and . Critical care time is 35 minutes excluding any reportable procedure. Critical care time included evaluation, multiple reevaluation, looking at old charts, interpreting laboratory and diagnostic data, discussing case with patient and family and consultants, and charting. Medical Decision Making Diagnostic Impression: Primary Impression: Upper GI bleed Additional Impressions: Anemia Qualified Codes: D64.9 - Anemia, unspecified COPD exacerbation Sepsis Qualified Codes: A41.9 - Sepsis, unspecified organism Pneumonia Qualified Codes: J18.1 - Lobar pneumonia, unspecified organism ARF (acute renal failure) Qualified Codes: N17.9 - Acute kidney failure, unspecified ER Course Patient presents with hypotension and tachycardia. This is secondary to multifactorial issues. He does have GI bleeding with severe anemia. He will be transfused. Protonix given. No evidence of perforation. This most likely ulcer bleed. No evidence of active bleeding right now. Chest x-ray showed possible bilateral lower lobe his tissue infiltrate. Antibiotics given. He does have an issue with amphetamine abuse in the past. Negative drug screen here. Heart rate improved with fluid. Will admit for further workup. Patient will be admitted to Dr. Mcintosh since assigned hospitalist for [facility] doesnt admit anymore. Lab Results Impression labs with leukocytosis and anemia EKG Diagnostic Results Rate: tachycardiac Rhythm: NSR ST Segments: no acute changes ASA given to the pt in ED: No Rhythm Strip Diag. Results Rhythm Strip Time: 02:44 EP Interpretation: yes Rate: 110 Rhythm: NSR, no PVC's, no ectopy Chest X-Ray Diagnostic Results Chest X-Ray Diagnostic Results : Chest X-Ray Ordered: Yes # of Views/Limited/Complete: 1 View Indication: Shortness of Breath EP Interpretation: Yes Interpretation: no effusion, no pneumothorax, other - no free air. b/l lower lobe interstitial infiltrates. Impression: Other Electronically Signed by: Homer Romero MD Last Vital Signs Date Time Temp Pulse Resp B/P (MAP) Pulse Ox O2 Delivery O2 Flow Rate FiO2 01/02/18 00:29 125 22 99 Nasal Cannula 28 01/01/18 23:54 98.9 89/44 99.0 Status: improved Disposition: ADMITTED INPATIENT Condition: Serious Referrals: [facility] (PCP) HOMER ROMERO M.D. Jan 02, 2018 02:45
[2018-01-02] MEDS ORDERED: Norco 5mg/325mg tab ORAL ONE (03:15)
[2018-01-02] MEDS ORDERED: Albuterol ud Inhalation HHN ONE (03:30)
[2018-01-02] MEDS: D5NS 1,000 ML IV SCH ×2 (07:30→17:52)
--- NOTE | 2018-01-02 07:49 | Infectious Diseases Prog Note ---
Assessment/Plan Problems: (1) Pneumonia Assessment & Plan: with B/L basal infiltrates , will send sputum culture and start zosyn empirically (2) Sepsis Assessment & Plan: due to the above , will send blood culture and start zosyn empiric coverage (3) Acute renal failure Assessment & Plan: monitor renal function, avoid nephrotoxics (4) Upper GI bleed Assessment & Plan: monitor H/H , transfuse as needed , needs EGD (5) Anemia Subjective Allergies: Coded Allergies: NO KNOWN DRUG ALLERGIES (Unverified Allergy, Unknown, 02/20/14) Objective Vital Signs Last 24 Hour Vital Signs Date Time Temp Pulse Resp B/P (MAP) Pulse Ox O2 Delivery O2 Flow Rate FiO2 01/02/18 05:15 98.2 116 18 109/76 96 Nasal Cannula 3.0 28 98.2 01/02/18 05:10 98.4 106 16 112/70 96 Nasal Cannula 3.0 28 98.4 01/02/18 04:13 98.2 01/02/18 04:10 98.2 116 18 109/76 96 Nasal Cannula 3.0 28 98.2 01/02/18 03:42 111 18 98 Nasal Cannula 28 01/02/18 03:36 102 18 98 Nasal Cannula 28 01/02/18 03:20 98.2 114 21 98.2 01/02/18 03:14 99.0 01/02/18 03:10 98.2 111 22 117/61 95 Nasal Cannula 3.0 28 98.2 01/02/18 03:05 98.2 116 22 98.2 01/02/18 02:10 98.7 108 21 124/81 96 Nasal Cannula 28 98.7 01/02/18 01:10 98.7 117 22 121/85 96 Nasal Cannula 28 98.7 01/02/18 00:29 125 22 99 Nasal Cannula 28 01/02/18 00:17 124 24 Nasal Cannula 28 01/02/18 00:16 124 24 99 Nasal Cannula 28 01/02/18 00:10 99.0 112 24 93/48 92 Room Air 99.0 01/02/18 00:10 112 24 Room Air 01/01/18 23:54 98.9 127 24 89/44 92 Room Air 99.0 Height (Feet): 6 Height (Inches): 0.00 Weight (Pounds): 296 Laboratory Tests Test 01/02/18 00:10 01/02/18 01:30 01/02/18 02:30 White Blood Count 19.4 K/UL (4.8-10.8) H Red Blood Count 3.16 M/UL (4.70-6.10) L Hemoglobin 6.5 G/DL (14.2-18.0) *L Hematocrit 21.3 % (42.0-52.0) L Mean Corpuscular Volume 67 FL (80-99) L Mean Corpuscular Hemoglobin 20.7 PG (27.0-31.0) L Mean Corpuscular Hemoglobin Concent 30.7 G/DL (32.0-36.0) L Red Cell Distribution Width 16.5 % (11.6-14.8) H Platelet Count 201 K/UL (150-450) Mean Platelet Volume 7.0 FL (6.5-10.1) Neutrophils (%) (Auto) % (45.0-75.0) Lymphocytes (%) (Auto) % (20.0-45.0) Monocytes (%) (Auto) % (1.0-10.0) Eosinophils (%) (Auto) % (0.0-3.0) Basophils (%) (Auto) % (0.0-2.0) Differential Total Cells Counted 100 Neutrophils % (Manual) 71 % (45-75) Lymphocytes % (Manual) 7 % (20-45) L Monocytes % (Manual) 9 % (1-10) Eosinophils % (Manual) 0 % (0-3) Basophils % (Manual) 0 % (0-2) Band Neutrophils 13 % (0-8) H Platelet Estimate Adequate Platelet Morphology Normal Prothrombin Time 11.3 SEC (9.30-11.50) Prothromb Time International Ratio 1.1 (0.9-1.1) Activated Partial Thromboplast Time 21 SEC (23-33) L Sodium Level 140 MMOL/L (136-145) Potassium Level 4.8 MMOL/L (3.5-5.1) Chloride Level 105 MMOL/L (98-107) Carbon Dioxide Level 31 MMOL/L (21-32) Anion Gap 4 mmol/L (5-15) L Blood Urea Nitrogen 66 mg/dL (7-18) H Creatinine 2.8 MG/DL (0.55-1.30) H Estimat Glomerular Filtration Rate 28.2 mL/min (>60) Glucose Level 121 MG/DL (74-106) H Lactic Acid Level 2.60 mmol/L (0.4-2.0) H 1.10 mmol/L (0.66-2.22) Calcium Level 8.3 MG/DL (8.5-10.1) L Total Bilirubin 0.8 MG/DL (0.2-1.0) Aspartate Amino Transf (AST/SGOT) 31 U/L (15-37) Alanine Aminotransferase (ALT/SGPT) 30 U/L (12-78) Alkaline Phosphatase 35 U/L (46-116) L Total Creatine Kinase 1314 U/L (26-308) H Creatine Kinase MB 3.3 NG/ML (0.0-3.6) Creatine Kinase MB Relative Index 0.2 Troponin I 0.063 ng/mL (0.000-0.056) Pro-B-Type Natriuretic Peptide 122 pg/mL (0-125) Total Protein 6.4 G/DL (6.4-8.2) Albumin 3.1 G/DL (3.4-5.0) L Globulin 3.3 g/dL Albumin/Globulin Ratio 0.9 (1.0-2.7) L Urine Color Yellow Urine Appearance Clear Urine pH 6 (4.5-8.0) Urine Specific [place] 1.010 (1.005-1.035) Urine Protein Negative (NEGATIVE) Urine Glucose (UA) Negative (NEGATIVE) Urine Ketones Negative (NEGATIVE) Urine Occult Blood Negative (NEGATIVE) Urine Nitrite Negative (NEGATIVE) Urine Bilirubin Negative (NEGATIVE) Urine Urobilinogen 1 MG/DL (0.0-1.0) H Urine Leukocyte Esterase Negative (NEGATIVE) Urine Opiates Screen Negative (NEGATIVE) Urine Barbiturates Screen Negative (NEGATIVE) Phencyclidine (PCP) Screen Negative (NEGATIVE) Urine Amphetamines Screen Negative (NEGATIVE) Urine Benzodiazepines Screen Negative (NEGATIVE) Urine Cocaine Screen Negative (NEGATIVE) Urine Marijuana (THC) Screen Negative (NEGATIVE) Current Medications Medications (Trade) Dose Ordered Sig/Cory Route PRN Reason Start Time Stop Time Status Last Admin Dose Admin Albuterol/ Ipratropium (Albuterol/ Ipratropium) 3 ml Q4H PRN HHN Shortness of Breath 01/02/18 06:45 01/07/18 06:44 Amitriptyline HCl (Elavil) 25 mg BEDTIME ORAL 01/02/18 21:00 02/01/18 20:59 Bupropion HCl (Wellbutrin SR) 150 mg DAILY ORAL 01/02/18 09:00 02/01/18 08:59 Dextrose/Sodium Chloride 1,000 ml @ 100 mls/hr Q10H IV 01/02/18 07:30 02/01/18 07:29 Levofloxacin 150 ml @ 100 mls/hr Q48H IVPB 01/04/18 02:00 01/11/18 01:59 Pantoprazole (Protonix) 40 mg EVERY 12 HOURS IVP 01/02/18 09:00 02/01/18 08:59 Doris Hunt M.D. Jan 02, 2018 07:49
[2018-01-02] MEDS ORDERED: Norco 5mg/325mg tab ORAL PRN (08:15)
[2018-01-02 08:28] LABS: HEMATOCRIT 26.1 % (42.0-52.0); HEMOGLOBIN 7.8 G/DL (14.2-18.0); MEAN CORPUSCULAR VOLUME 70 FL (80-99); PLATELET COUNT 203 K/UL (150-450); RED BLOOD COUNT 3.73 M/UL (4.70-6.10)
[2018-01-02] MEDS: BuPROPion SR 150mg tab ORAL SCH (08:29)
[2018-01-02] MEDS ORDERED: Sodium Chloride 500ML 500 ML IV ONE (08:30)
[2018-01-02] MEDS: Pantoprazole Inj IVP SCH ×2 (08:30→21:50)
[2018-01-02 08:44] LABS: ALANINE AMINOTRANSFERASE 34 U/L (12-78); ALBUMIN 3.3 G/DL (3.4-5.0); ALBUMIN/GLOBULIN RATIO 0.8 (1.0-2.7); ALKALINE PHOSPHATASE 41 U/L (46-116); ANION GAP 6 mmol/L (5-15); ASPARTATE AMINO TRANSFERASE 32 U/L (15-37); BILIRUBIN,TOTAL 0.6 MG/DL (0.2-1.0); BLOOD UREA NITROGEN 48 mg/dL (7-18); CALCIUM 8.2 MG/DL (8.5-10.1); CARBON DIOXIDE 28 MMOL/L (21-32); CHLORIDE 108 MMOL/L (98-107); CHOLESTEROL 94 MG/DL (< 200); HDL CHOLESTEROL 48 MG/DL (40-60); POTASSIUM 4.8 MMOL/L (3.5-5.1); SODIUM 142 MMOL/L (136-145); TRIGLYCERIDES 33 MG/DL (30-150)
--- NOTE | 2018-01-02 08:47 | History & Physical ---
History and Physical History & Physicial seen and examined. Dictation completed Munir Mcintosh MD Jan 02, 2018 08:47
[2018-01-02 08:55] LABS: WHITE BLOOD COUNT 23.4 K/UL (4.8-10.8)
[2018-01-02] MEDS: Albuterol/Ipratropium 3ml neb HHN PRN ×2 (09:25→20:30)
--- NOTE | 2018-01-02 10:05 | Consultation ---
Consult Note Assessment/Plan DICT # [id number] Kiel Castellon MD Jan 02, 2018 10:05
[2018-01-02] MEDS ORDERED: Gastrograffin 30ml RECTAL PRN (10:15)
--- NOTE | 2018-01-02 10:15 | History and Physical Report ---
DATE OF ADMISSION: 01/02/2018 SOURCE OF INFORMATION: The patient and EMR. HISTORY OF PRESENT ILLNESS: The patient is a 57-year-old male with the prior history of GI bleed, who presented with the acute onset of the passing of tarry stool and blood per rectum after the 31 of December [employer]. The patient denies any nausea. The patient was positive for vomitus, but denies any hematemesis. The patient positive for fatigue and weakness. Denies any shortness of breath. PAST MEDICAL HISTORY: DVT, anemia, diabetes, COPD, renal failure, noncompliance with medical advices in the past, and hypertension. PAST SURGICAL HISTORY: Positive for possible periumbilical hernia. MEDICATIONS: Current home medications are including albuterol, amitriptyline, gabapentin, lisinopril, lorazepam, warfarin, and Lyrica. SOCIAL HISTORY: The patient denies history of illicit drug abuse, smoking, or alcohol abuse. REVIEW OF SYSTEMS: All 12 elements of review of systems reviewed. Pertinent positive and negative as above. PHYSICAL EXAMINATION: VITAL SIGNS: Blood pressure 90/40, temperature 98.2, pulse oximetry 98% on room air, pulse rate 120 - 130, respiratory rate 12 - 16, and pulse oximetry 95% on room air. HEAD AND NECK: Atraumatic and normocephalic. CHEST: Clear to auscultation. No wheezing. No crackles. HEART: S1 and S2. Tachycardic. Negative for S3. Negative for S4. ABDOMEN: Morbidly obese. Negative for any organomegaly. Negative for any severe tenderness. NEUROLOGIC: The patient is awake, alert, and oriented x3, sleepy. LABORATORY AND DIAGNOSTIC DATA: Laboratories dated January 02, 2018, shows WBC 19.4, hemoglobin of 6.5, and platelet of 201. Sodium 140, potassium 4.8, BUN 66, creatinine 2.8. AST and ALT are within normal limits. Troponin 0.06. Lactic acid of 2.6. Imaging, official reports are pending. ASSESSMENT AND PLAN: 1. Sepsis, source working in progress. 2. GI bleed - acute. 3. Diabetes type 2. 4. Hypertension. 5. Hyperlipidemia. 6. Anxiety depression. 7. Noncompliance with medical advice - history of. PLAN OF CARE: We will continue with the IV Protonix. Keep the patient n.p.o. Continue with the IV fluid management. GI, Infectious Disease, and Nephrology have been consulted. We will followup. Munir Mcintosh M.D. DR: CRIS JOB#: [id number] CC:
--- NOTE | 2018-01-02 11:06 | Diagnostic Imaging Report ---
Indication: Dyspnea Comparison: 09/26/2017 A single view chest radiograph was obtained. Findings: There is some vascular prominence but this appears chronic. There is a hiatal hernia. Heart size is normal. The bones are unremarkable. IMPRESSION: No acute disease suspected. Hiatal hernia
[2018-01-02] MEDS: Piperacillin/Tazobactam 3.375 GM in D5W 110 ML IVPB SCH ×2 (12:38→21:51)
--- NOTE | 2018-01-02 14:15 | Diagnostic Imaging Report ---
APPROVED REPORT CPT Code: 10414 Present Symptoms Shortness of breath RIGHT LEG: Venous imaging reveals recanalized chronic thrombus in the superficial femoral to popliteal veins. Large collateral vein noted anterior to the superficial femoral artery. Imaging also reveals patency of the common femoral and calf veins. The greater saphenous vein is also within normal limits. Doppler indicates normal spontaneous flow within these segments. LEFT LEG: Venous imaging reveals a patent deep venous system. There is no evidence of thrombus within the femoral, popliteal or tibial segments. The greater saphenous vein is also within normal limits. Doppler indicates normal spontaneous flow within these segments. There is no evidence of acute deep vein thrombosis.
--- NOTE | 2018-01-02 14:17 | Cardiology Report ---
APPROVED REPORT EKG Measurement Heart [id number] Sinus tachycardia Otherwise normal ECG
--- NOTE | 2018-01-02 15:36 | Consultation ---
Consult Note Consult Note asked to eval for elevated Cr HPI This is a 57-year-old male with multiple medical problems. He presents with chief complaint of weakness and shortness of breath. Also with fever. Today when he got up he felt weak and short of breath. He also had fever this morning. Also said that for the last couple days his stool have been very black. Also coughing up specks of blood. Denies any alcohol use. Denies any drug use. Does have some mild epigastric pain. Coughing is nonproductive in nature. Fever subjective in occurred earlier today. Worse with exertion. No chest pain. No nausea no vomiting. NO KNOWN DRUG ALLERGIES (Unverified Allergy, Unknown, 02/20/14) Hx Cardiac Problems: Yes - DJD, DVT, "irregular heartbeat" Hx Hypertension: Yes Hx COPD: Yes Hx Diabetes: Yes interviewed examined data reviewed Assessment/Plan Acute renal failure Possible underlying CKD Pneumonia Sepsis Acute renal failure Upper GI bleed Anemia Hydrate Urine studies Flomax Per consultants Per orders TRENTON WALDROP Jan 02, 2018 15:36
--- NOTE | 2018-01-02 15:50 | Diagnostic Imaging Report ---
Indication: Bloody stool. Rectal bleeding. Abdominal pain Technique: Continuous helical transaxial imaging of the abdomen and pelvis was obtained from the lung bases to the pubic symphysis. No IV contrast was administered. Coronal 2-D reformats were also obtained. Study obtained in a Siemens sensation [address] Total Dose length Product (DLP): 1226.[address] Dose Index Volume (CTDIvol): 17.51 mGy Comparison: None Findings: There are no findings on this examination to account for the given history of GI bleeding. That said, the study does not replace comprehensive evaluation of the colon for tumor or other pathology that might account for the gastrointestinal bleed. Small bowel loops that are opacified with contrast material appear nondilated with no obvious mass or other abnormality. Stomach is grossly unremarkable. There is a hiatal hernia moderate in size present. There is no free air or free fluid. No nephrolithiasis identified. Evaluation of solid organs is limited on noncontrast imaging. There is no hydronephrosis. Small umbilical hernia containing fat demonstrated. The appendix is normal. Bilateral inguinal hernias containing fat demonstrated. Urinary bladder is unremarkable. Trace aortoiliac calcifications are noted. There is a reticulation and mild paraseptal bleb formation involving small patch of right upper lobe near the apex. This is chronic finding and indicative of scarring. Some mild patchy lower lobe groundglass opacities are present nonspecific. No adenopathy or abnormal fluid collections are identified. IMPRESSION: No findings to account for given history of GI bleed. Consider upper and lower endoscopy for further evaluation and/or nuclear medicine GI bleeding scan. Moderate hiatal hernia. Minimal atherosclerotic vascular disease Bilateral inguinal hernias containing fat. Patchy groundglass opacities within the lungs involving both lower lobes nonspecific. Focal scarring in the apex of the right upper lobe. Small umbilical hernia containing fat. The CT scanner at [facility] is accredited by the [place] and the scans are performed using dose optimization techniques as appropriate to a performed exam including Automatic Exposure control.
--- NOTE | 2018-01-02 16:45 | GI Initial Consult Note ---
History of Present Illness General Date patient seen: Jan 02, 2018 Time patient seen: 16:37 Reason for Hospitalization: Dyspnea/Respdistress Referring physician: JENELLE ANDREA Reason for Consultation: GI BLEED Present Illness HPI This is a 57-year-old male with multiple medical problems. He presents with chief complaint of weakness and shortness of breath. Also with fever. Today when he got up he felt weak and short of breath. He also had fever this morning. Also said that for the last couple days his stool have been very black. Also coughing up specks of blood. Denies any alcohol use. Denies any drug use. Does have some mild epigastric pain. Coughing is nonproductive in nature. Fever subjective in occurred earlier today. Worse with exertion. No chest pain. No nausea no vomiting. GI consulted for GI bleed. Pt see, awake A&Ox4 NAD with no active s/sx of N/V/ D. Per patient, had recent BBQ and shortly after had multiple episodes of vomiting with some black emesis. This patient had EGD performed back here at [facility] in November 2016 dx with gastritis. He states he also had a colonoscopy last year, however it was incomplete because of a poor prep. He presents today with severe anemia requiring blood transfusion, leukocytosis and elevated troponin levels. Patient denies any severe abdominal pain at this time, c/o of hunger. Home Meds Reported Medications Pregabalin (LYRICA) 100 Mg Capsule, ORAL THREE TIMES A DAY, CAP 09/27/17 Lorazepam* (LORAZEPAM*) 2 Mg Tablet, 2 MG ORAL DAILY, TAB 04/05/16 Albuterol Sulfate* (PROAIR HFA*) 8.5 Gm Hfa.aer.ad, 1 PUFF INH Q6H, #8.5 GM 0 Refills 04/05/16 Warfarin Sod* (COUMADIN*) 5 Mg Tablet, 5 MG ORAL DAILY, TAB 04/05/16 Bupropion Hcl* (BUPROPION HCL SR*) 150 Mg Tablet.er, 150 MG ORAL DAILY, TAB 02/22/14 Amitriptyline Hcl* (AMITRIPTYLINE HCL*) 25 Mg Tablet, 25 MG ORAL BEDTIME, TAB 02/22/14 Lisinopril* (LISINOPRIL*) 10 Mg Tablet, 10 MG ORAL DAILY, TAB 02/22/14 Gabapentin* (GABAPENTIN*) 300 Mg Capsule, 300 MG ORAL DAILY, CAP 02/22/14 Amlodipine Besylate* (AMLODIPINE BESYLATE*) 10 Mg Tablet, 10 MG ORAL DAILY, TAB 02/22/14 Med list reviewed/reconciled: Yes Allergies: Coded Allergies: NO KNOWN DRUG ALLERGIES (Unverified Allergy, Unknown, 02/20/14) Patient History History Provided By: Patient, Medical Record PMH Narrative Past Medical History: see triage record, old chart reviewed, DM, HTN, CAD, COPD Past Surgical History: other Pertinent Family History: none Social History: Reports: smoking Immunizations: other Reviewed Nursing Documentation: PMH: Agreed; PSxH: Agreed Nursing Documentation-PMH Hx Cardiac Problems: Yes - DJD, DVT, "irregular heartbeat" Hx Hypertension: Yes Hx Pacemaker: No Hx Asthma: No Hx COPD: Yes Hx Diabetes: Yes Hx Cancer: No Hx Gastrointestinal Problems: No Hx Dialysis: No Hx Neurological Problems: No Hx Cerebrovascular Accident: No Hx Seizures: No Social History: Denies: smoking, alcohol use, drug use, other Social History Narrative Utox negative Review of Systems All Other Systems: negative except mentioned in HPI Physical Exam Vital Signs Date Time Temp Pulse Resp B/P (MAP) Pulse Ox O2 Delivery O2 Flow Rate FiO2 01/01/18 23:54 98.9 127 24 89/44 92 Room Air 99.0 01/02/18 00:16 28 01/02/18 03:10 3.0 Sp02 EP Interpretation: reviewed, normal Labs Laboratory Tests Test 01/02/18 00:10 01/02/18 01:30 01/02/18 02:30 01/02/18 07:50 White Blood Count 19.4 K/UL (4.8-10.8) H 23.4 K/UL (4.8-10.8) *H Red Blood Count 3.16 M/UL (4.70-6.10) L 3.73 M/UL (4.70-6.10) L Hemoglobin 6.5 G/DL (14.2-18.0) *L 7.8 G/DL (14.2-18.0) L Hematocrit 21.3 % (42.0-52.0) L 26.1 % (42.0-52.0) L Mean Corpuscular Volume 67 FL (80-99) L 70 FL (80-99) L Mean Corpuscular Hemoglobin 20.7 PG (27.0-31.0) L 20.9 PG (27.0-31.0) L Mean Corpuscular Hemoglobin Concent 30.7 G/DL (32.0-36.0) L 29.8 G/DL (32.0-36.0) L Red Cell Distribution Width 16.5 % (11.6-14.8) H 18.0 % (11.6-14.8) H Platelet Count 201 K/UL (150-450) 203 K/UL (150-450) Mean Platelet Volume 7.0 FL (6.5-10.1) 7.4 FL (6.5-10.1) Neutrophils (%) (Auto) % (45.0-75.0) % (45.0-75.0) Lymphocytes (%) (Auto) % (20.0-45.0) % (20.0-45.0) Monocytes (%) (Auto) % (1.0-10.0) % (1.0-10.0) Eosinophils (%) (Auto) % (0.0-3.0) % (0.0-3.0) Basophils (%) (Auto) % (0.0-2.0) % (0.0-2.0) Differential Total Cells Counted 100 100 Neutrophils % (Manual) 71 % (45-75) 97 % (45-75) H Lymphocytes % (Manual) 7 % (20-45) L 2 % (20-45) L Monocytes % (Manual) 9 % (1-10) 1 % (1-10) Eosinophils % (Manual) 0 % (0-3) 0 % (0-3) Basophils % (Manual) 0 % (0-2) 0 % (0-2) Band Neutrophils 13 % (0-8) H 0 % (0-8) Platelet Estimate Adequate Adequate Platelet Morphology Normal Normal Prothrombin Time 11.3 SEC (9.30-11.50) Prothromb Time International Ratio 1.1 (0.9-1.1) Activated Partial Thromboplast Time 21 SEC (23-33) L Sodium Level 140 MMOL/L (136-145) 142 MMOL/L (136-145) Potassium Level 4.8 MMOL/L (3.5-5.1) 4.8 MMOL/L (3.5-5.1) Chloride Level 105 MMOL/L (98-107) 108 MMOL/L (98-107) H Carbon Dioxide Level 31 MMOL/L (21-32) 28 MMOL/L (21-32) Anion Gap 4 mmol/L (5-15) L 6 mmol/L (5-15) Blood Urea Nitrogen 66 mg/dL (7-18) H 48 mg/dL (7-18) H Creatinine 2.8 MG/DL (0.55-1.30) H 2.0 MG/DL (0.55-1.30) H Estimat Glomerular Filtration Rate 28.2 mL/min (>60) 41.7 mL/min (>60) Glucose Level 121 MG/DL (74-106) H 159 MG/DL (74-106) H Lactic Acid Level 2.60 mmol/L (0.4-2.0) H 1.10 mmol/L (0.66-2.22) Calcium Level 8.3 MG/DL (8.5-10.1) L 8.2 MG/DL (8.5-10.1) L Total Bilirubin 0.8 MG/DL (0.2-1.0) 0.6 MG/DL (0.2-1.0) Aspartate Amino Transf (AST/SGOT) 31 U/L (15-37) 32 U/L (15-37) Alanine Aminotransferase (ALT/SGPT) 30 U/L (12-78) 34 U/L (12-78) Alkaline Phosphatase 35 U/L (46-116) L 41 U/L (46-116) L Total Creatine Kinase 1314 U/L (26-308) H Creatine Kinase MB 3.3 NG/ML (0.0-3.6) Creatine Kinase MB Relative Index 0.2 Troponin I 0.063 ng/mL (0.000-0.056) Pro-B-Type Natriuretic Peptide 122 pg/mL (0-125) Total Protein 6.4 G/DL (6.4-8.2) 7.2 G/DL (6.4-8.2) Albumin 3.1 G/DL (3.4-5.0) L 3.3 G/DL (3.4-5.0) L Globulin 3.3 g/dL 3.9 g/dL Albumin/Globulin Ratio 0.9 (1.0-2.7) L 0.8 (1.0-2.7) L Urine Color Yellow Urine Appearance Clear Urine pH 6 (4.5-8.0) Urine Specific [place] 1.010 (1.005-1.035) Urine Protein Negative (NEGATIVE) Urine Glucose (UA) Negative (NEGATIVE) Urine Ketones Negative (NEGATIVE) Urine Occult Blood Negative (NEGATIVE) Urine Nitrite Negative (NEGATIVE) Urine Bilirubin Negative (NEGATIVE) Urine Urobilinogen 1 MG/DL (0.0-1.0) H Urine Leukocyte Esterase Negative (NEGATIVE) Urine Opiates Screen Negative (NEGATIVE) Urine Barbiturates Screen Negative (NEGATIVE) Phencyclidine (PCP) Screen Negative (NEGATIVE) Urine Amphetamines Screen Negative (NEGATIVE) Urine Benzodiazepines Screen Negative (NEGATIVE) Urine Cocaine Screen Negative (NEGATIVE) Urine Marijuana (THC) Screen Negative (NEGATIVE) Hypochromasia 3+ Anisocytosis 2+ Microcytosis 2+ Hemoglobin A1c 5.7 % (4.3-6.0) C-Reactive Protein, Quantitative 8.1 mg/dL (0.00-0.90) H Triglycerides Level 33 MG/DL (30-150) Cholesterol Level 94 MG/DL (< 200) LDL Cholesterol 51 mg/dL (<100) HDL Cholesterol 48 MG/DL (40-60) Cholesterol/HDL Ratio 2.0 (3.3-4.4) L General Appearance: well appearing, no apparent distress, alert Head: normocephalic EENT: PERRL/EOMI, normal ENT inspection Neck: supple Respiratory: normal breath sounds, no respiratory distress Cardiovascular: normal rate Gastrointestinal: normal inspection, non tender, soft, normal bowel sounds, non -distended Rectal: deferred Genitourinary: deferred Musculoskeletal: normal inspection, back normal Neurologic: normal inspection, alert, oriented x3, responsive Psychiatric: normal inspection, judgement/insight normal, memory normal Skin: normal inspection, normal color, no rash, warm/dry, palpation normal, well hydrated Lymphatic: normal inspection, no adenopathy Current Medications Current Medications Medications (Trade) Dose Ordered Sig/Cory Route PRN Reason Start Time Stop Time Status Last Admin Dose Admin Albuterol/ Ipratropium (Albuterol/ Ipratropium) 3 ml Q4H PRN HHN Shortness of Breath 01/02/18 06:45 01/07/18 06:44 01/02/18 09:25 Bupropion HCl (Wellbutrin SR) 150 mg DAILY ORAL 01/02/18 09:00 02/01/18 08:59 01/02/18 08:29 Dextrose/Sodium Chloride 1,000 ml @ 100 mls/hr Q10H IV 01/02/18 07:30 02/01/18 07:29 01/02/18 07:30 Diatrizoate Meglum/ Diatrizoate Sod (Gastrografin) 60 ml NOW PRN RECTAL Radiology Procedure 01/02/18 10:15 01/04/18 10:06 Mirtazapine (Remeron) 15 mg BEDTIME ORAL 01/02/18 21:00 02/01/18 20:59 Oxycodone/ Acetaminophen (Percocet 10/325) 1 tab QIDPRN PRN ORAL Severe Pain (Pain Scale 7-10) 01/02/18 12:00 01/09/18 11:59 01/02/18 12:38 Pantoprazole (Protonix) 40 mg EVERY 12 HOURS IVP 01/02/18 09:00 02/01/18 08:59 Piperacillin Sod/ Tazobactam Sod 3.375 gm/Dextrose 110 ml @ 27.5 mls/hr EVERY 8 HOURS IVPB 01/02/18 10:00 01/07/18 09:59 01/02/18 12:38 Tamsulosin HCl (Flomax) 0.4 mg BEDTIME ORAL 01/02/18 21:00 02/01/18 20:59 GI: Plan Problems: (1) Upper GI bleed (2) Anemia (3) Sepsis Plan EGD/colonoscopy tentatively to be scheduled Friday pending cardiac clearance. soft diet anemia work up OB stool r/o GI bleed monitor H&H, prn transfusions bowel regime ppi BID fu labs will follow with additional recs Discussed with Dr. Vanegas. Thank you for this patient referral, we will follow. The patient was seen and examined at bedside and all new and available data was reviewed in the patients chart. I agree with the above findings, impression and plan. (Patient seen earlier today. Signature stamp does not reflect patient encounter time.). - MD Heather WarrenSan [facility] Jan 02, 2018 16:45
--- NOTE | 2018-01-02 16:45 | Consultation ---
DATE OF CONSULTATION: 01/02/2018 PULMONARY CONSULTATION CONSULTING PHYSICIAN: Kiel Castellon M.D. REFERRING PHYSICIAN: Munir Mcintosh M.D. REASON FOR CONSULTATION: Shortness of breath. HISTORY OF PRESENT ILLNESS: The patient is a 57-year-old male, former smoker with a history of chronic obstructive pulmonary disease, NIKKO, hiatal hernia, prior gastrointestinal bleed, DVT in the past, lung nodules, and anemia, presenting to the hospital with weakness and shortness of breath, dark stools, acute kidney injury, and acute anemia. The patient was admitted for similar reasons in 2017 approximately a year ago and signed out AMA at that time. He states he is compliant with his medications though his INR is only 1.1. He denies any current inhaler use, but he is prescribed inhaler. He is not sure what they were. He is supposed to follow up with PFTs in the past, but did not. He states that his cough is at baseline. He has shortness of breath with minimal exertion. Denies any fevers or chills. Does note dizziness, but denies headaches. Denies nausea, vomiting, diarrhea, or constipation. Few days ago, he states he ate some heavy food and thereafter, had dark emesis and dark bowel movements since then. Denies any bright red blood per rectum. PAST MEDICAL HISTORY: 1. DVT, presumably on anticoagulation though INR is 1.1. 2. Lung nodules noted on CT abdomen and pelvis in the past. 3. Anemia. 4. Gastrointestinal bleed. 5. Hiatal hernia. 6. Obstructive sleep apnea. 7. Chronic obstructive pulmonary disease. 8. Depression. 9. History of substance abuse in the past. MEDICATIONS: Prior to admission medications, reviewed. Current medications, reviewed. ALLERGIES: No known drug allergies. SOCIAL HISTORY: Extensive tobacco use. Prior history of drug use. Denies current. FAMILY HISTORY: Noncontributory. REVIEW OF SYSTEMS: Negative other than history of present illness. PHYSICAL EXAMINATION: VITAL SIGNS: Temperature 98.2, pulse 160, blood pressure 100/76, respiratory rate 18, and saturating 93% on 3 liters. GENERAL: He is a well-developed and well-nourished male, in no acute distress. Awake, alert, and oriented x3. HEENT: Normocephalic and atraumatic. Oropharynx is clear. Mallampati score is 4. NECK: Supple without lymphadenopathy or jugular venous distention. CHEST: Scattered coarse breath sounds at the bases, but otherwise clear. HEART: Regular rate and rhythm. ABDOMEN: Soft, nontender, and nondistended. EXTREMITIES: No cyanosis, clubbing, or edema. ANCILLARY DATA: White count 19.4 on admission, 23.4 now, hemoglobin 6.5 on admission and 7.6 now, and platelet count 201,000 on admission and 203,000 now. INR 1.1. Sodium 142, potassium 4.8, chloride 108, bicarb 25, BUN 48, it was 66 on admission, and creatinine 2.0, it was 2.8 on admission. Glucose 159. Lactic acid 2.6, now 1.1. Calcium 8.2. Hemoglobin A1c is 5.7. Total bilirubin 0.6. AST 32, ALT 34, and alkaline phosphatase 41. CK . Troponin 0.063. Albumin 3.3. Tox screen is negative. Urinalysis, 1+ urobilinogen, otherwise negative. IMAGING: Per ER attending, chest x-ray with bibasilar infiltrates. It is not available for my review. ASSESSMENT: The patient is a 57-year-old male smoker with history of chronic obstructive pulmonary disease, obstructive sleep apnea, hiatal hernia, known gastrointestinal bleed in the past, anemia, lung nodules, and deep venous thrombosis, noncompliant with anticoagulation, presenting with shortness of breath and weakness, noted to have acute anemia with likely gastrointestinal bleed, leukocytosis, pneumonia, and acute kidney injury. PROBLEM LIST: 1. Bilateral lower lobe infiltrates likely pneumonia. 2. Leukocytosis secondary to above. 3. Acute anemia likely secondary to gastrointestinal bleed. 4. Hematochezia. 5. History of gastrointestinal bleed in the past. 6. Acute kidney injury, improved with PRBC transfusion. 7. Elevated cardiac biomarkers likely demand ischemia. 8. Questionable history of deep venous thrombosis in the past, not currently on anticoagulation. 9. Lung nodules previously seen at the bases of the CT abdomen and pelvis. 10. History of substance abuse in the past. TREATMENT PLAN: 1. Optimize pulmonary hygiene/mobilize as tolerated. 2. Titrate down FiO2 to keep saturations greater than 90%. 3. Continue antimicrobials (Zosyn) per ID. 4. Follow up cultures. 5. Cijet-dij-qwrgq and p.r.n. bronchodilators. 6. Hold off on steroids for the time being. 7. We will follow up CT chest, abdomen, and pelvis. 8. We will follow up duplex and D-dimer. 9. Monitor CBC and transfuse as needed. 10. Gastrointestinal evaluation. 11. Anticoagulation has been held secondary to bleed. 12. If the patient does indeed have lower extremity clot, we will consider placing a filter. 13. If no evidence of lower extremity DVT, we will place SCDs for prophylaxis. Dr. Mcintosh, thank you for allowing me to assist in the care of your patient. If I may be of any assistance in the future, please do not hesitate to ask. Kiel Castellon M.D. DR: ROSHAN JOB#: [id number] CC:
[2018-01-02 18:49] LABS: HEMATOCRIT 24.9 % (42.0-52.0); HEMOGLOBIN 7.8 G/DL (14.2-18.0); MEAN CORPUSCULAR VOLUME 71 FL (80-99); PLATELET COUNT 169 K/UL (150-450); RED BLOOD COUNT 3.53 M/UL (4.70-6.10); RED CELL DISTRIBUTION WIDTH 19.5 % (11.6-14.8)
[2018-01-02 18:52] LABS: WHITE BLOOD COUNT 23.2 K/UL (4.8-10.8)
--- NOTE | 2018-01-02 19:39 | Cardiology Progress Note ---
Assessment/Plan Assessment/Plan The patient is seen and examined, full consult note will be dictated. Objective Last 24 Hour Vital Signs Date Time Temp Pulse Resp B/P (MAP) Pulse Ox O2 Delivery O2 Flow Rate FiO2 01/02/18 16:00 106 01/02/18 16:00 97.7 104 103/79 (87) 97.7 01/02/18 12:00 97.7 98 143/76 (98) 97.7 01/02/18 12:00 104 01/02/18 09:56 Nasal Cannula 2.0 28 01/02/18 09:55 102 20 98 Nasal Cannula 28 01/02/18 09:54 98 20 96 Nasal Cannula 2.0 28 01/02/18 08:00 109 01/02/18 07:17 99 14 Nasal Cannula 2.0 28 01/02/18 05:15 98.2 116 18 109/76 96 Nasal Cannula 3.0 28 98.2 01/02/18 05:10 98.4 106 16 112/70 96 Nasal Cannula 3.0 28 98.4 01/02/18 04:13 98.2 01/02/18 04:10 98.2 116 18 109/76 96 Nasal Cannula 3.0 28 98.2 01/02/18 03:42 111 18 98 Nasal Cannula 28 01/02/18 03:36 102 18 98 Nasal Cannula 28 01/02/18 03:20 98.2 114 21 98.2 01/02/18 03:14 99.0 01/02/18 03:10 98.2 111 22 117/61 95 Nasal Cannula 3.0 28 98.2 01/02/18 03:05 98.2 116 22 98.2 01/02/18 02:10 98.7 108 21 124/81 96 Nasal Cannula 28 98.7 01/02/18 01:10 98.7 117 22 121/85 96 Nasal Cannula 28 98.7 01/02/18 00:29 125 22 99 Nasal Cannula 28 01/02/18 00:17 124 24 Nasal Cannula 28 01/02/18 00:16 124 24 99 Nasal Cannula 28 01/02/18 00:10 99.0 112 24 93/48 92 Room Air 99.0 01/02/18 00:10 112 24 Room Air 01/01/18 23:54 98.9 127 24 89/44 92 Room Air 99.0 Intake and Output 7/5/18 7/6/18 19:00 07:00 Intake Total 3150 ml Balance 3150 ml IV Total 3150 ml # Voids 1 # Bowel Movements 1 Laboratory Tests Test 01/02/18 00:10 01/02/18 01:30 01/02/18 02:30 01/02/18 07:50 White Blood Count 19.4 K/UL (4.8-10.8) H 23.4 K/UL (4.8-10.8) *H Red Blood Count 3.16 M/UL (4.70-6.10) L 3.73 M/UL (4.70-6.10) L Hemoglobin 6.5 G/DL (14.2-18.0) *L 7.8 G/DL (14.2-18.0) L Hematocrit 21.3 % (42.0-52.0) L 26.1 % (42.0-52.0) L Mean Corpuscular Volume 67 FL (80-99) L 70 FL (80-99) L Mean Corpuscular Hemoglobin 20.7 PG (27.0-31.0) L 20.9 PG (27.0-31.0) L Mean Corpuscular Hemoglobin Concent 30.7 G/DL (32.0-36.0) L 29.8 G/DL (32.0-36.0) L Red Cell Distribution Width 16.5 % (11.6-14.8) H 18.0 % (11.6-14.8) H Platelet Count 201 K/UL (150-450) 203 K/UL (150-450) Mean Platelet Volume 7.0 FL (6.5-10.1) 7.4 FL (6.5-10.1) Neutrophils (%) (Auto) % (45.0-75.0) % (45.0-75.0) Lymphocytes (%) (Auto) % (20.0-45.0) % (20.0-45.0) Monocytes (%) (Auto) % (1.0-10.0) % (1.0-10.0) Eosinophils (%) (Auto) % (0.0-3.0) % (0.0-3.0) Basophils (%) (Auto) % (0.0-2.0) % (0.0-2.0) Differential Total Cells Counted 100 100 Neutrophils % (Manual) 71 % (45-75) 97 % (45-75) H Lymphocytes % (Manual) 7 % (20-45) L 2 % (20-45) L Monocytes % (Manual) 9 % (1-10) 1 % (1-10) Eosinophils % (Manual) 0 % (0-3) 0 % (0-3) Basophils % (Manual) 0 % (0-2) 0 % (0-2) Band Neutrophils 13 % (0-8) H 0 % (0-8) Platelet Estimate Adequate Adequate Platelet Morphology Normal Normal Prothrombin Time 11.3 SEC (9.30-11.50) Prothromb Time International Ratio 1.1 (0.9-1.1) Activated Partial Thromboplast Time 21 SEC (23-33) L Sodium Level 140 MMOL/L (136-145) 142 MMOL/L (136-145) Potassium Level 4.8 MMOL/L (3.5-5.1) 4.8 MMOL/L (3.5-5.1) Chloride Level 105 MMOL/L (98-107) 108 MMOL/L (98-107) H Carbon Dioxide Level 31 MMOL/L (21-32) 28 MMOL/L (21-32) Anion Gap 4 mmol/L (5-15) L 6 mmol/L (5-15) Blood Urea Nitrogen 66 mg/dL (7-18) H 48 mg/dL (7-18) H Creatinine 2.8 MG/DL (0.55-1.30) H 2.0 MG/DL (0.55-1.30) H Estimat Glomerular Filtration Rate 28.2 mL/min (>60) 41.7 mL/min (>60) Glucose Level 121 MG/DL (74-106) H 159 MG/DL (74-106) H Lactic Acid Level 2.60 mmol/L (0.4-2.0) H 1.10 mmol/L (0.66-2.22) Calcium Level 8.3 MG/DL (8.5-10.1) L 8.2 MG/DL (8.5-10.1) L Total Bilirubin 0.8 MG/DL (0.2-1.0) 0.6 MG/DL (0.2-1.0) Aspartate Amino Transf (AST/SGOT) 31 U/L (15-37) 32 U/L (15-37) Alanine Aminotransferase (ALT/SGPT) 30 U/L (12-78) 34 U/L (12-78) Alkaline Phosphatase 35 U/L (46-116) L 41 U/L (46-116) L Total Creatine Kinase 1314 U/L (26-308) H Creatine Kinase MB 3.3 NG/ML (0.0-3.6) Creatine Kinase MB Relative Index 0.2 Troponin I 0.063 ng/mL (0.000-0.056) Pro-B-Type Natriuretic Peptide 122 pg/mL (0-125) Total Protein 6.4 G/DL (6.4-8.2) 7.2 G/DL (6.4-8.2) Albumin 3.1 G/DL (3.4-5.0) L 3.3 G/DL (3.4-5.0) L Globulin 3.3 g/dL 3.9 g/dL Albumin/Globulin Ratio 0.9 (1.0-2.7) L 0.8 (1.0-2.7) L Urine Color Yellow Urine Appearance Clear Urine pH 6 (4.5-8.0) Urine Specific [place] 1.010 (1.005-1.035) Urine Protein Negative (NEGATIVE) Urine Glucose (UA) Negative (NEGATIVE) Urine Ketones Negative (NEGATIVE) Urine Occult Blood Negative (NEGATIVE) Urine Nitrite Negative (NEGATIVE) Urine Bilirubin Negative (NEGATIVE) Urine Urobilinogen 1 MG/DL (0.0-1.0) H Urine Leukocyte Esterase Negative (NEGATIVE) Urine Opiates Screen Negative (NEGATIVE) Urine Barbiturates Screen Negative (NEGATIVE) Phencyclidine (PCP) Screen Negative (NEGATIVE) Urine Amphetamines Screen Negative (NEGATIVE) Urine Benzodiazepines Screen Negative (NEGATIVE) Urine Cocaine Screen Negative (NEGATIVE) Urine Marijuana (THC) Screen Negative (NEGATIVE) Hypochromasia 3+ Anisocytosis 2+ Microcytosis 2+ Hemoglobin A1c 5.7 % (4.3-6.0) C-Reactive Protein, Quantitative 8.1 mg/dL (0.00-0.90) H Triglycerides Level 33 MG/DL (30-150) Cholesterol Level 94 MG/DL (< 200) LDL Cholesterol 51 mg/dL (<100) HDL Cholesterol 48 MG/DL (40-60) Cholesterol/HDL Ratio 2.0 (3.3-4.4) L Test 01/02/18 15:00 01/02/18 16:32 01/02/18 18:10 Arterial Blood pH 7.370 (7.350-7.450) Arterial Blood Partial Pressure CO2 48.4 mmHg (35.0-45.0) H Arterial Blood Partial Pressure O2 70.8 mmHg (75.0-100.0) L Arterial Blood HCO3 27.4 mmol/L (22.0-26.0) H Arterial Blood Oxygen Saturation 92.1 % (92.0-98.0) Arterial Blood Base Excess 1.6 [place] Test Positive Urine Random Sodium 96 mmol/L (20-110) White Blood Count 23.2 K/UL (4.8-10.8) *H Red Blood Count 3.53 M/UL (4.70-6.10) L Hemoglobin 7.8 G/DL (14.2-18.0) L Hematocrit 24.9 % (42.0-52.0) L Mean Corpuscular Volume 71 FL (80-99) L Mean Corpuscular Hemoglobin 22.1 PG (27.0-31.0) L Mean Corpuscular Hemoglobin Concent 31.3 G/DL (32.0-36.0) L Red Cell Distribution Width 19.5 % (11.6-14.8) H Platelet Count 169 K/UL (150-450) Mean Platelet Volume 7.2 FL (6.5-10.1) Neutrophils (%) (Auto) % (45.0-75.0) Lymphocytes (%) (Auto) % (20.0-45.0) Monocytes (%) (Auto) % (1.0-10.0) Eosinophils (%) (Auto) % (0.0-3.0) Basophils (%) (Auto) % (0.0-2.0) Alejandro Turner MD Jan 02, 2018 19:39
--- NOTE | 2018-01-02 21:30 | Consultation ---
DATE OF CONSULTATION: 01/02/2018 INFECTIOUS DISEASE CONSULTATION CONSULTING PHYSICIAN: Doris Hunt M.D. REFERRING PHYSICIAN: Munir Mcintosh M.D. REASON FOR CONSULTATION: Sepsis and pneumonia. Recommendation for antibiotics treatment. HISTORY OF PRESENT ILLNESS: The patient is a 57-year-old male with past medical history of DVT, anemia, diabetes, chronic obstructive pulmonary disease, chronic renal failure, and hypertension, presented to the hospital with sudden onset of cough, nausea, vomiting, and coffee-grounds emesis after he had a republican on 12/31/2017. The patient denies any fever or chills. Denied any recent travel or sick contact. In the emergency room, the patient had a chest x-ray. Initially, showed no acute disease, but CT scan of the chest later showed bilateral ground-glass opacities in both lungs suggestive of pneumonia. His white count was found to be extremely elevated at 23.4, so Infectious Disease consultation was requested for further evaluation and management. PAST MEDICAL HISTORY: Significant for DVT, anemia, diabetes, chronic obstructive pulmonary disease, renal failure, noncompliance, and hypertension. PAST SURGICAL HISTORY: Periumbilical hernia repair. MEDICATIONS: The patient received levofloxacin and methylprednisolone in the emergency room. For the rest of his medications, please refer to [facility]. SOCIAL HISTORY: The patient lives at home with family. Denied using drugs, tobacco, or alcohol. REVIEW OF SYSTEMS: A 14-point of system reviewed were all negative apart from the one I mentioned above in my History and Physical. PHYSICAL EXAMINATION: VITAL SIGNS: Temperature 97.7, pulse 98, respirations 20, blood pressure 143/76, and saturation 98% on 2 liters nasal cannula. GENERAL: A middle-aged male, obese, lying in bed, awake, alert, coughing, and not in acute distress. HEENT: Normocephalic and atraumatic. Pupils are reactive to light equally. Moist oral mucosa. No exudate. NECK: Supple. No lymphadenopathy. CARDIOVASCULAR: Regular rate and rhythm. No murmur. LUNGS: He had wheezing mainly on the lower lobes with diminished breathing sounds. No rhonchi. ABDOMEN: Soft, nontender, and nondistended. Normal bowel sounds. No hepatosplenomegaly. Obese. No ascites. No rebound. EXTREMITY: Trace edema. No cyanosis. LABORATORY DATA: Labs showed white count of 23.4, hemoglobin of 7.8, and platelet count of 203,000. BUN of 48 and creatinine of 2. Lactic acid of 2.6. Urinalysis was negative for urinary tract infection. IMAGING: Chest x-ray showed no acute disease specified. Venous Doppler showed no evidence of DVT in both legs. CT scan abdomen and pelvis showed no acute pathology to explain gastrointestinal bleeding. Moderate hiatal hernia, bilateral inguinal hernia containing fat, patchy ground-glass opacity within the lungs involving both lower lobes, and nonspecific focal scarring of the apex of the right upper lobe. ASSESSMENT AND RECOMMENDATIONS: 1. Pneumonia, possible aspiration with bilateral ground-glass patchy infiltrate. We will send sputum culture and start Zosyn empiric coverage pending culture. Monitor chest x-ray. 2. Sepsis due to the above with leukocytosis. We will send blood culture and start Zosyn empiric coverage. 3. Acute renal failure. Suspect dehydration. Continue fluids for hydration and monitor renal function. Avoid nephrotoxics. 4. Possible gastrointestinal bleeding. Monitor hemoglobin and hematocrit. Transfuse as needed. May need EGD. 5. Anemia due to the above. Recommend to monitor H and H. Transfuse as needed. Thank you for the consult. ID will continue to follow. Doris Hunt M.D. DR: MARCELA JOB#: [id number] CC:
[2018-01-02] MEDS: Tamsulosin 0.4mg cap ORAL SCH (21:50)
[2018-01-02] MEDS: guaiFENesin ER 600mg tab ORAL SCH (21:52)
[2018-01-03] VITALS: BP 115/63
[2018-01-03] MEDS: D5NS 1,000 ML IV SCH ×2 (03:24→11:15)
--- NOTE | 2018-01-03 03:30 | Consultation ---
DATE OF CONSULTATION: 01/02/2018 CARDIOLOGY CONSULTATION REFERRING PHYSICIAN: Munir Mcintosh M.D. REASON FOR CONSULTATION: Management of cardiac arrhythmia. HISTORY OF PRESENT ILLNESS: The patient is a very unfortunate 57-year-old gentleman known to me, who presents to the hospital with a chief complaint of weakness as well as shortness of breath. The patient has a history of obstructive sleep apnea and not currently on CPAP mask. Apparently, he had been feeling weak and short of breath. Over the past few days, he also complains of subjective fever as well as melanotic stools. Also complains of coughing up specks of blood. On arrival to the hospital, initial blood pressure was low at 89/44 mmHg and pulse rate of 127. A 12-lead electrocardiogram confirmed sinus tachycardia, but no ST and T-wave abnormalities. The patient was admitted to telemetry for further evaluation and management. Cardiology consultation was made at the request of Dr. Mcintosh to address tachycardia. In the course of hospitalization, the patient developed paroxysmal atrial fibrillation as well as sinus pauses as long as about three seconds. It is not clear whether these episodes occurred when the patient was asleep. PAST MEDICAL HISTORY: Diabetes mellitus, hypertension, COPD, history of normal LV systolic function with LVEF of 65%, history of mild pulmonary hypertension, history of obstructive sleep apnea/obesity hypoventilation, history of DVT on warfarin therapy in both lower extremities, and history of cardiac arrhythmias. PAST SURGICAL HISTORY: None. FAMILY HISTORY: No premature coronary artery disease in first-degree relatives. SOCIAL HISTORY: He smokes tobacco. Denies any alcohol or illicit drug use. REVIEW OF SYSTEMS: A 12-system review done essentially negative except what is mentioned in the history of present illness. LIST OF MEDICATIONS: 1. Albuterol one puff inhaler q.6 h. 2. Amitriptyline 25 mg nightly. 3. Amlodipine 10 mg p.o. daily. 4. Bupropion 150 mg daily. 5. Gabapentin 300 mg p.o. daily. 6. Lisinopril 10 mg p.o. daily. 7. Lorazepam 2 mg p.o. daily. 8. Warfarin 5 mg p.o. daily. PHYSICAL EXAMINATION: VITAL SIGNS: Blood pressure was 89/44, respirations 24, pulse of 127, temperature 98.9 degrees Fahrenheit, and O2 saturation 90% on room air. GENERAL: The patient is a very unfortunate 57-year-old gentleman with obesity, has typical respiration in patient with obstructive sleep apnea. HEENT: Atraumatic and normocephalic. Anicteric. Pupils are equal, round, and reactive to light and accommodation. Extraocular muscles are intact. NECK: JVP less than 5 cm. No carotid bruit. Carotid upstrokes 2+ bilaterally. CARDIOVASCULAR: Normal S1 and S2. Regular rate and rhythm. No murmurs, gallops, or rubs. LUNGS: Diminished breath sounds in both bases. ABDOMEN: Soft, nontender, and nondistended. No hepatosplenomegaly. Positive bowel sounds. EXTREMITIES: There is 1+ bilateral leg edema. LABORATORY FINDINGS: WBC 19.4, hemoglobin of 6.5, hematocrit 21.3, and platelet count of 201,000. Indices are all low. Chemistry showed sodium 140, potassium is 4.8, chloride 105, bicarbonate 31, BUN of 66, and creatinine 2.8, baseline is 1.1. Glucose is 121 and calcium is 8.3. ProBNP was 122. Troponin I was 0.063. Triglycerides 33. Total cholesterol 94, LDL 51, and HDL of 48. INR was 1.1. Toxicology was negative. A 12-lead electrocardiogram, sinus tachycardia, rate of [address] and T-wave abnormalities. Normal QT interval. Strip rhythm shows that of a paroxysmal atrial fibrillation at times with bradyarrhythmia including sinus pause of approximately three seconds. DIAGNOSTIC DATA: Chest x-ray shows no acute cardiopulmonary disease. Venous duplex lower extremity shows no evidence of acute DVT, although there is recanalized chronic thrombus in the superficial femoral to popliteal vein of the right leg with large collateral veins. ASSESSMENT AND PLAN: The patient is a very unfortunate 57-year-old gentleman, seen in Cardiology consultation at the request of Dr. Mcintosh. 1. Cardiac arrhythmia. There is episode of paroxysmal atrial fibrillation with sinus pauses, which is most likely due to his underlying obstructive sleep apnea. I personally believe that the patient should be instructed and advised to wear a CPAP mask at night time. 2. We will continue to monitor if the patient is asymptomatic cardiac rhythm. He takes warfarin for his underlying deep vein thrombosis. 3. At the time of arrival to the hospital, INR was in the subtherapeutic level of 1.1. 4. Given the patient's history of anemia and blood loss, the indices reveals he is not a candidate for anticoagulation therapy. 5. Normal left ventricular systolic function with left ventricular ejection fraction of approximately 60% to 65%. 6. Mild pulmonary hypertension likely due to obstructive sleep apnea. 7. Slight elevation of troponin I level could be secondary to anemia for his underlying tachycardia. We will continue with serial troponin I measurements. ECG does not show any evidence of ischemia. There was no wall motion abnormality on 2D echocardiography. Another diagnosis for elevated troponin I level is the renal failure. 8. We will continue with conservative management. 9. Further diagnostic and therapeutic decision will be based on the patient's clinical course in the next few days. I would like to thank Dr. Mcintosh for the courtesy of this consultation. Alejandro Turner M.D. DR: RADHA JOB#: [id number] CC:
[2018-01-03 04:00] VITALS: BP 128/80
[2018-01-03] MEDS: Piperacillin/Tazobactam 3.375 GM in D5W 110 ML IVPB SCH ×3 (05:27→21:41)
[2018-01-03 05:39] LABS: HEMATOCRIT 25.1 % (42.0-52.0); HEMOGLOBIN 7.6 G/DL (14.2-18.0); MEAN CORPUSCULAR VOLUME 71 FL (80-99); PLATELET COUNT 164 K/UL (150-450); RED BLOOD COUNT 3.52 M/UL (4.70-6.10); WHITE BLOOD COUNT 18.4 K/UL (4.8-10.8)
[2018-01-03 06:19] LABS: ALANINE AMINOTRANSFERASE 32 U/L (12-78); ALBUMIN/GLOBULIN RATIO 0.8 (1.0-2.7); ALKALINE PHOSPHATASE 35 U/L (46-116); ANION GAP 3 mmol/L (5-15); ASPARTATE AMINO TRANSFERASE 23 U/L (15-37); BILIRUBIN,TOTAL 0.9 MG/DL (0.2-1.0); BLOOD UREA NITROGEN 29 mg/dL (7-18); CALCIUM 8.5 MG/DL (8.5-10.1); CARBON DIOXIDE 29 MMOL/L (21-32); CHLORIDE 108 MMOL/L (98-107); CREATININE 1.3 MG/DL (0.55-1.30); FERRITIN 21 NG/ML (8-388); POTASSIUM 4.4 MMOL/L (3.5-5.1); SODIUM 140 MMOL/L (136-145)
[2018-01-03 06:31] LABS: % IRON SATURATION 4 % (15-50); IRON 12 ug/dL (50-175); TOTAL IRON BINDING CAPACITY 318 ug/dL (250-450)
[2018-01-03 06:41] LABS: CREATINE KINASE 671 U/L (26-308); GAMMA GLUTAMYL TRANSPEPTIDASE 8 U/L (5-85); PHOSPHORUS 3.3 MG/DL (2.5-4.9)
[2018-01-03] MEDS: Albuterol/Ipratropium 3ml neb HHN PRN (07:40)
--- NOTE | 2018-01-03 07:44 | General Progress Note ---
Assessment/Plan Problem List: (1) Anemia ICD Codes: D64.9 - Anemia, unspecified SNOMED: 321881193 Qualifiers: Qualified Codes: D64.9 - Anemia, unspecified (2) Upper GI bleed ICD Codes: K92.2 - Gastrointestinal hemorrhage, unspecified SNOMED: 15320613 (3) COPD exacerbation ICD Codes: J44.1 - Chronic obstructive pulmonary disease with (acute) exacerbation SNOMED: 803197083 Assessment/Plan iv iron folic acid monitor H&H ppi BID plan EGD and colonoscopy on Friday Subjective ROS Limited/Unobtainable: Yes Allergies: Coded Allergies: NO KNOWN DRUG ALLERGIES (Unverified Allergy, Unknown, 02/20/14) Objective Last 24 Hour Vital Signs Date Time Temp Pulse Resp B/P (MAP) Pulse Ox O2 Delivery O2 Flow Rate FiO2 01/03/18 07:42 101 20 96 Room Air 01/03/18 07:17 102 18 Room Air 21 01/03/18 07:17 Room Air 01/03/18 04:00 97.7 105 20 128/80 (96) 91 97.7 01/03/18 04:00 99 01/03/18 00:00 113 01/03/18 00:00 98.0 112 20 115/63 (80) 92 98.0 01/02/18 21:00 Nasal Cannula 2.0 01/02/18 20:39 98 20 96 01/02/18 20:32 109 20 95 Room Air 01/02/18 20:28 Room Air 01/02/18 20:28 109 18 Room Air 01/02/18 20:00 98.3 114 20 118/75 (89) 92 98.3 01/02/18 20:00 114 01/02/18 16:00 106 01/02/18 16:00 97.7 104 103/79 (87) 97.7 01/02/18 12:00 97.7 98 143/76 (98) 97.7 01/02/18 12:00 104 01/02/18 09:56 Nasal Cannula 2.0 28 01/02/18 09:55 102 20 98 Nasal Cannula 28 01/02/18 09:54 98 20 96 Nasal Cannula 2.0 28 01/02/18 08:00 109 Intake and Output 01/02/18 01/03/18 19:00 07:00 Intake Total 660 ml 612.500 ml Output Total 900 ml 2200 ml Balance -240 ml -1587.500 ml Intake Oral 260 ml IV Total 400 ml 612.500 ml Output Urine Total 900 ml 2200 ml # Voids 7 Laboratory Tests 01/02/18 07:50: White Blood Count 23.4*H, Red Blood Count 3.73L, Hemoglobin 7.8L, Hematocrit 26.1L, Mean Corpuscular Volume 70L, Mean Corpuscular Hemoglobin 20.9L, Mean Corpuscular Hemoglobin Concent 29.8L, Red Cell Distribution Width 18.0H, Platelet Count 203, Mean Platelet Volume 7.4, Neutrophils (%) (Auto) , Lymphocytes (%) (Auto) , Monocytes (%) (Auto) , Eosinophils (%) (Auto) , Basophils (%) (Auto) , Differential Total Cells Counted 100, Neutrophils % ( Manual) 97H, Lymphocytes % (Manual) 2L, Monocytes % (Manual) 1, Eosinophils % ( Manual) 0, Basophils % (Manual) 0, Band Neutrophils 0, Platelet Estimate Adequate, Platelet Morphology Normal, Hypochromasia 3+, Anisocytosis 2+, Microcytosis 2+, Sodium Level 142, Potassium Level 4.8, Chloride Level 108H, Carbon Dioxide Level 28, Anion Gap 6, Blood Urea Nitrogen 48H, Creatinine 2.0H, Estimat Glomerular Filtration Rate 41.7, Glucose Level 159H, Hemoglobin A1c 5.7 , Calcium Level 8.2L, Total Bilirubin 0.6, Aspartate Amino Transf (AST/SGOT) 32 , Alanine Aminotransferase (ALT/SGPT) 34, Alkaline Phosphatase 41L, C-Reactive Protein, Quantitative 8.1H, Total Protein 7.2, Albumin 3.3L, Globulin 3.9, Albumin/Globulin Ratio 0.8L, Triglycerides Level 33, Cholesterol Level 94, LDL Cholesterol 51, HDL Cholesterol 48, Cholesterol/HDL Ratio 2.0L 01/02/18 15:00: Arterial Blood pH 7.370, Arterial Blood Partial Pressure CO2 48.4H, Arterial Blood Partial Pressure O2 70.8L, Arterial Blood HCO3 27.4H, Arterial Blood Oxygen Saturation 92.1, Arterial Blood Base Excess 1.6, [place] Test Positive 01/02/18 16:32: Urine Random Sodium 96 01/02/18 18:10: White Blood Count 23.2*H, Red Blood Count 3.53L, Hemoglobin 7.8L, Hematocrit 24.9L, Mean Corpuscular Volume 71L, Mean Corpuscular Hemoglobin 22.1L, Mean Corpuscular Hemoglobin Concent 31.3L, Red Cell Distribution Width 19.5H, Platelet Count 169, Mean Platelet Volume 7.2, Neutrophils (%) (Auto) , Lymphocytes (%) (Auto) , Monocytes (%) (Auto) , Eosinophils (%) (Auto) , Basophils (%) (Auto) , Differential Total Cells Counted 100, Neutrophils % ( Manual) 87H, Lymphocytes % (Manual) 9L, Monocytes % (Manual) 2, Eosinophils % ( Manual) 0, Basophils % (Manual) 0, Band Neutrophils 2, Platelet Estimate DecreasedL, Platelet Morphology , Hypochromasia 3+, Anisocytosis 2+, Microcytosis 3+, Giant Platelets 1+, Polychromasia 1+ 01/03/18 05:18: White Blood Count 18.4H, Red Blood Count 3.52L, Hemoglobin 7.6L, Hematocrit 25.1L, Mean Corpuscular Volume 71L, Mean Corpuscular Hemoglobin 21.7L, Mean Corpuscular Hemoglobin Concent 30.3L, Red Cell Distribution Width 20.0H, Platelet Count 164, Mean Platelet Volume 7.0, Neutrophils (%) (Auto) , Lymphocytes (%) (Auto) , Monocytes (%) (Auto) , Eosinophils (%) (Auto) , Basophils (%) (Auto) , Neutrophils % (Manual) [Pending], Lymphocytes % (Manual) [Pending], Platelet Estimate [Pending], Platelet Morphology [Pending], Sodium Level 140, Potassium Level 4.4, Chloride Level 108H, Carbon Dioxide Level 29, Anion Gap 3L, Blood Urea Nitrogen 29H, Creatinine 1.3, Estimat Glomerular Filtration Rate > 60, Glucose Level 123H, Uric Acid 4.1, Calcium Level 8.5, Phosphorus Level 3.3, Magnesium Level 2.7H, Iron Level 12L, Total Iron Binding Capacity 318, Percent Iron Saturation 4L, Unsaturated Iron Binding 306, Ferritin 21, Total Bilirubin 0.9, Gamma Glutamyl Transpeptidase 8, Aspartate Amino Transf (AST/SGOT) 23, Alanine Aminotransferase (ALT/SGPT) 32, Alkaline Phosphatase 35L, Total Creatine Kinase 671H, Troponin I 0.012, Pro-B-Type Natriuretic Peptide 457H, Total Protein 6.7, Albumin 3.0L, Globulin 3.7, Albumin /Globulin Ratio 0.8L, Vitamin B12 Level 907, Folate 5.1L, Thyroid Stimulating Hormone (TSH) 0.897 Height (Feet): 6 Height (Inches): 0.00 Weight (Pounds): 296 General Appearance: alert EENT: normal ENT inspection Neck: supple Cardiovascular: normal rate Respiratory/Chest: lungs clear Abdomen: normal bowel sounds, non tender, soft Extremities: non-tender Uday Vanegas MD Jan 03, 2018 07:44
[2018-01-03 08:00] VITALS: BP 142/78
--- NOTE | 2018-01-03 08:45 | Consultation ---
DATE OF CONSULTATION: 01/02/2018 HEMATOLOGY/ONCOLOGY CONSULTATION CONSULTING PHYSICIAN: Cristian Mac M.D. REQUESTING PHYSICIAN: Munir Mcintosh M.D. REASON FOR CONSULTATION: Evaluation of nausea and GI bleed. IDENTIFYING DATA: Dear Dr. Mcintosh: The patient is a pleasant 57-year-old male with past medical history which is significant for history of pneumonia, history of sepsis, chronic history of DVT, anemia, diabetes mellitus, chronic obstructive pulmonary disease, and hypertension who at this time presents with new-onset coffee-ground emesis after . Denies any fevers or chills. Chest x-ray completed. CT scan completed, showed bilateral ground glass opacities. Elevated lactic acid as well as elevated white count. ID Service was consulted. Hematology Service was consulted given ongoing anemia. PAST MEDICAL HISTORY: DVT, anemia, diabetes mellitus, COPD, renal failure, noncompliance, and hypertension. PAST SURGICAL HISTORY: Paraumbilical hernia. MEDICATIONS: Reviewed. FAMILY HISTORY: Noncontributory. SOCIAL HISTORY: No alcohol, tobacco, or illicit drug use. Lives at home with family. REVIEW OF SYSTEMS: A 12-point review of systems completed, otherwise negative. PHYSICAL EXAMINATION: VITAL SIGNS: Reviewed. GENERAL: He is in no distress. PULMONARY: Decreased breath sounds. CARDIOVASCULAR: Regular rate. No S3 or S4. ABDOMEN: Soft, nontender, and nondistended. EXTREMITIES: A 1+ edema. LABORATORY DATA: WBC 23,000, hemoglobin 12.8, and platelet count 203,000. Lactic acid 2.6. Venous duplex shows no evidence of DVT. CT scan of the abdomen and pelvis showed no acute pathology to explain GI bleed. ASSESSMENT AND RECOMMENDATION: 1. Anemia, potentially secondary to [place] tear versus possibly GI bleed. Evaluate with anemia workup, ferritin pending, may transfuse blood, hemoglobin goal above 7. 2. Sepsis secondary to UTI secondary to pneumonia. Continue on antibiotics. 3. leukocytosis. 4. [place]IS[place], secondary to dehydration. 5. possible GI bleed. 6. Pneumonia, ground-glass opacities bilaterally, being seen by ID Service as well as Pulmonary team. 7. Lung nodule seen on the bases. CT scan of the abdomen and pelvis. Closely monitor. Obtain CT chest, abdomen, and pelvis. 8. DVT of lower extremities. Hold off on any intervention. Does not have any evidence of DVT. Cristian Mac M.D. DR: ELIZABETH JOB#: [id number] CC:
[2018-01-03] MEDS: Pantoprazole Inj IVP SCH ×2 (09:07→21:41)
[2018-01-03] MEDS: BuPROPion SR 150mg tab ORAL SCH (09:07)
[2018-01-03] MEDS: guaiFENesin ER 600mg tab ORAL SCH ×2 (09:08→18:16)
[2018-01-03] MEDS ORDERED: Tubing Blood Filter IV ONE (09:40)
[2018-01-03] MEDS ORDERED: NS 275ml ONE (09:40)
--- NOTE | 2018-01-03 10:11 | Nephrology Progress Note ---
Assessment/Plan Problem List: (1) Acute renal failure (2) Iron (Fe) deficiency anemia (3) Upper GI bleed Assessment Acute renal failure Cr lower Possible underlying CKD Pneumonia Sepsis Acute renal failure Upper GI bleed Anemia Low Iron Plan Hydrate, lower rate now IV Iron - PO Folate Urine studies Flomax Per consultants / GI Per orders Subjective ROS Limited/Unobtainable: No Constitutional: Reports: malaise Objective Objective Last 24 Hour Vital Signs Date Time Temp Pulse Resp B/P (MAP) Pulse Ox O2 Delivery O2 Flow Rate FiO2 01/03/18 08:00 97.5 89 21 142/78 (99) 91 97.5 01/03/18 07:52 108 20 93 Room Air 01/03/18 07:42 101 20 96 Room Air 01/03/18 07:17 102 18 Room Air 21 01/03/18 07:17 Room Air 01/03/18 04:00 97.7 105 20 128/80 (96) 91 97.7 01/03/18 04:00 99 01/03/18 00:00 113 01/03/18 00:00 98.0 112 20 115/63 (80) 92 98.0 01/02/18 21:00 Nasal Cannula 2.0 01/02/18 20:39 98 20 96 01/02/18 20:32 109 20 95 Room Air 01/02/18 20:28 Room Air 01/02/18 20:28 109 18 Room Air 01/02/18 20:00 98.3 114 20 118/75 (89) 92 98.3 01/02/18 20:00 114 01/02/18 16:00 106 01/02/18 16:00 97.7 104 103/79 (87) 97.7 01/02/18 12:00 97.7 98 143/76 (98) 97.7 01/02/18 12:00 104 Intake and Output 01/02/18 01/03/18 19:00 07:00 Intake Total 660 ml 612.500 ml Output Total 900 ml 2200 ml Balance -240 ml -1587.500 ml Intake Oral 260 ml IV Total 400 ml 612.500 ml Output Urine Total 900 ml 2200 ml # Voids 7 Laboratory Tests 01/02/18 15:00: Arterial Blood pH 7.370, Arterial Blood Partial Pressure CO2 48.4H, Arterial Blood Partial Pressure O2 70.8L, Arterial Blood HCO3 27.4H, Arterial Blood Oxygen Saturation 92.1, Arterial Blood Base Excess 1.6, [place] Test Positive 01/02/18 16:32: Urine Random Sodium 96 01/02/18 18:10: White Blood Count 23.2*H, Red Blood Count 3.53L, Hemoglobin 7.8L, Hematocrit 24.9L, Mean Corpuscular Volume 71L, Mean Corpuscular Hemoglobin 22.1L, Mean Corpuscular Hemoglobin Concent 31.3L, Red Cell Distribution Width 19.5H, Platelet Count 169, Mean Platelet Volume 7.2, Neutrophils (%) (Auto) , Lymphocytes (%) (Auto) , Monocytes (%) (Auto) , Eosinophils (%) (Auto) , Basophils (%) (Auto) , Differential Total Cells Counted 100, Neutrophils % ( Manual) 87H, Lymphocytes % (Manual) 9L, Monocytes % (Manual) 2, Eosinophils % ( Manual) 0, Basophils % (Manual) 0, Band Neutrophils 2, Platelet Estimate DecreasedL, Platelet Morphology , Giant Platelets 1+, Polychromasia 1+, Hypochromasia 3+, Anisocytosis 2+, Microcytosis 3+ 01/03/18 05:18: White Blood Count 18.4H, Red Blood Count 3.52L, Hemoglobin 7.6L, Hematocrit 25.1L, Mean Corpuscular Volume 71L, Mean Corpuscular Hemoglobin 21.7L, Mean Corpuscular Hemoglobin Concent 30.3L, Red Cell Distribution Width 20.0H, Platelet Count 164, Mean Platelet Volume 7.0, Neutrophils (%) (Auto) , Lymphocytes (%) (Auto) , Monocytes (%) (Auto) , Eosinophils (%) (Auto) , Basophils (%) (Auto) , Neutrophils % (Manual) [Pending], Lymphocytes % (Manual) [Pending], Platelet Estimate [Pending], Platelet Morphology [Pending], Sodium Level 140, Potassium Level 4.4, Chloride Level 108H, Carbon Dioxide Level 29, Anion Gap 3L, Blood Urea Nitrogen 29H, Creatinine 1.3, Estimat Glomerular Filtration Rate > 60, Glucose Level 123H, Uric Acid 4.1, Calcium Level 8.5, Phosphorus Level 3.3, Magnesium Level 2.7H, Iron Level 12L, Total Iron Binding Capacity 318, Percent Iron Saturation 4L, Unsaturated Iron Binding 306, Ferritin 21, Total Bilirubin 0.9, Gamma Glutamyl Transpeptidase 8, Aspartate Amino Transf (AST/SGOT) 23, Alanine Aminotransferase (ALT/SGPT) 32, Alkaline Phosphatase 35L, Total Creatine Kinase 671H, Troponin I 0.012, Pro-B-Type Natriuretic Peptide 457H, Total Protein 6.7, Albumin 3.0L, Globulin 3.7, Albumin /Globulin Ratio 0.8L, Vitamin B12 Level 907, Folate 5.1L, Thyroid Stimulating Hormone (TSH) 0.897 Height (Feet): 6 Height (Inches): 0.00 Weight (Pounds): 296 General Appearance: no apparent distress Cardiovascular: normal rate Respiratory/Chest: decreased breath sounds Abdomen: non tender TRENTON WALDROP Jan 03, 2018 10:11
--- NOTE | 2018-01-03 10:15 | Pulmonology Progress Note ---
Assessment/Plan Assessment/Plan ASSESSMENT: The patient is a 57-year-old male smoker with history of chronic obstructive pulmonary disease, obstructive sleep apnea, hiatal hernia, known gastrointestinal bleed in the past, anemia, lung nodules, and deep venous thrombosis, noncompliant with anticoagulation, presenting with shortness of breath and weakness, noted to have acute anemia with likely gastrointestinal bleed, leukocytosis, pneumonia, and acute kidney injury. PROBLEM LIST: 1. Scattered b LL predominant reticulonodular infiltrates 2. Bronchiectasis 3. COPD 4. NIKKO, non-compliant with CPAP 5. Likely underlying OHN 6. Chronic hypercapnic RF 7. Acute anemia likely secondary to gastrointestinal bleed. 8. Hematochezia with History of gastrointestinal bleed in the past. 9. Acute kidney injury - RESOLVED 10. Elevated cardiac biomarkers likely demand ischemia. 11. Questionable history of deep venous thrombosis in the past, not currently on anticoagulation. 12. History of substance abuse in the past. TREATMENT PLAN: 1. Optimize pulmonary hygiene/mobilize as tolerated. 2. PRN O2 3. Continue antimicrobials (Zosyn) per ID. 4. Follow up cultures. 5. [id number] and p.r.n. bronchodilators. 6. Further w/u of bxtsis as an outpatient 7. Will D/W heme, favor not anti-coagulating given remote h/o DVT and normal duplex 8. Monitor CBC and transfuse as needed. 9. F/U GI recs, EGD friday 10. DVT Px: SCD 11. Declines CPAP despite understanding risks of untreated NIKKO, including sudden Subjective Allergies: Coded Allergies: NO KNOWN DRUG ALLERGIES (Unverified Allergy, Unknown, 02/20/14) Subjective AFVSS, WCt better, HH stable, stable on RA No SOB, occ cough, no CP, no F/C, no N/V/D/C, no bleeding CT reviewed by me ---> b patchy reticulonodular infiltrates, faint GGOs Refuses CPAP, states had multiple sleep studies before Objective Last 24 Hour Vital Signs Date Time Temp Pulse Resp B/P (MAP) Pulse Ox O2 Delivery O2 Flow Rate FiO2 01/03/18 08:00 97.5 89 21 142/78 (99) 91 97.5 01/03/18 07:52 108 20 93 Room Air 01/03/18 07:42 101 20 96 Room Air 01/03/18 07:17 102 18 Room Air 21 01/03/18 07:17 Room Air 01/03/18 04:00 97.7 105 20 128/80 (96) 91 97.7 01/03/18 04:00 99 01/03/18 00:00 113 01/03/18 00:00 98.0 112 20 115/63 (80) 92 98.0 01/02/18 21:00 Nasal Cannula 2.0 01/02/18 20:39 98 20 96 01/02/18 20:32 109 20 95 Room Air 01/02/18 20:28 Room Air 01/02/18 20:28 109 18 Room Air 01/02/18 20:00 98.3 114 20 118/75 (89) 92 98.3 01/02/18 20:00 114 01/02/18 16:00 106 01/02/18 16:00 97.7 104 103/79 (87) 97.7 01/02/18 12:00 97.7 98 143/76 (98) 97.7 01/02/18 12:00 104 Intake and Output 01/02/18 01/03/18 19:00 07:00 Intake Total 660 ml 612.500 ml Output Total 900 ml 2200 ml Balance -240 ml -1587.500 ml Intake Oral 260 ml IV Total 400 ml 612.500 ml Output Urine Total 900 ml 2200 ml # Voids 7 General Appearance: no acute distress, other - obese male HEENT: normocephalic, atraumatic, anicteric, mucous membranes moist Respiratory/Chest: chest wall non-tender, lungs clear, normal breath sounds, no respiratory distress, no accessory muscle use Cardiovascular: normal peripheral pulses, normal rate, regular rhythm Abdomen: normal bowel sounds, soft, non tender, no organomegaly, non distended , no mass Extremities: no cyanosis, no clubbing, no edema Microbiology Date/Time Source Procedure Growth Status 01/02/18 00:25 Blood Blood Culture - Preliminary NO GROWTH AFTER 24 HOURS Resulted 01/02/18 00:10 Blood Blood Culture - Preliminary NO GROWTH AFTER 24 HOURS Resulted 01/02/18 16:36 Sputum Expectorated Gram Stain - Final Resulted 01/02/18 16:36 Sputum Expectorated Sputum Culture Pending Resulted Laboratory Tests 01/02/18 15:00: Arterial Blood pH 7.370, Arterial Blood Partial Pressure CO2 48.4H, Arterial Blood Partial Pressure O2 70.8L, Arterial Blood HCO3 27.4H, Arterial Blood Oxygen Saturation 92.1, Arterial Blood Base Excess 1.6, Bolivar Test Positive 01/02/18 16:32: Urine Random Sodium 96 01/02/18 18:10: White Blood Count 23.2*H, Red Blood Count 3.53L, Hemoglobin 7.8L, Hematocrit 24.9L, Mean Corpuscular Volume 71L, Mean Corpuscular Hemoglobin 22.1L, Mean Corpuscular Hemoglobin Concent 31.3L, Red Cell Distribution Width 19.5H, Platelet Count 169, Mean Platelet Volume 7.2, Neutrophils (%) (Auto) , Lymphocytes (%) (Auto) , Monocytes (%) (Auto) , Eosinophils (%) (Auto) , Basophils (%) (Auto) , Differential Total Cells Counted 100, Neutrophils % ( Manual) 87H, Lymphocytes % (Manual) 9L, Monocytes % (Manual) 2, Eosinophils % ( Manual) 0, Basophils % (Manual) 0, Band Neutrophils 2, Platelet Estimate DecreasedL, Platelet Morphology , Giant Platelets 1+, Polychromasia 1+, Hypochromasia 3+, Anisocytosis 2+, Microcytosis 3+ 01/03/18 05:18: White Blood Count 18.4H, Red Blood Count 3.52L, Hemoglobin 7.6L, Hematocrit 25.1L, Mean Corpuscular Volume 71L, Mean Corpuscular Hemoglobin 21.7L, Mean Corpuscular Hemoglobin Concent 30.3L, Red Cell Distribution Width 20.0H, Platelet Count 164, Mean Platelet Volume 7.0, Neutrophils (%) (Auto) , Lymphocytes (%) (Auto) , Monocytes (%) (Auto) , Eosinophils (%) (Auto) , Basophils (%) (Auto) , Neutrophils % (Manual) [Pending], Lymphocytes % (Manual) [Pending], Platelet Estimate [Pending], Platelet Morphology [Pending], Sodium Level 140, Potassium Level 4.4, Chloride Level 108H, Carbon Dioxide Level 29, Anion Gap 3L, Blood Urea Nitrogen 29H, Creatinine 1.3, Estimat Glomerular Filtration Rate > 60, Glucose Level 123H, Uric Acid 4.1, Calcium Level 8.5, Phosphorus Level 3.3, Magnesium Level 2.7H, Iron Level 12L, Total Iron Binding Capacity 318, Percent Iron Saturation 4L, Unsaturated Iron Binding 306, Ferritin 21, Total Bilirubin 0.9, Gamma Glutamyl Transpeptidase 8, Aspartate Amino Transf (AST/SGOT) 23, Alanine Aminotransferase (ALT/SGPT) 32, Alkaline Phosphatase 35L, Total Creatine Kinase 671H, Troponin I 0.012, Pro-B-Type Natriuretic Peptide 457H, Total Protein 6.7, Albumin 3.0L, Globulin 3.7, Albumin /Globulin Ratio 0.8L, Vitamin B12 Level 907, Folate 5.1L, Thyroid Stimulating Hormone (TSH) 0.897 Current Medications Medications (Trade) Dose Ordered Sig/Cory Route PRN Reason Start Time Stop Time Status Last Admin Dose Admin Albuterol/ Ipratropium (Albuterol/ Ipratropium) 3 ml Q4H PRN HHN Shortness of Breath 01/02/18 06:45 01/07/18 06:44 01/03/18 07:40 Bupropion HCl (Wellbutrin SR) 150 mg DAILY ORAL 01/02/18 09:00 02/01/18 08:59 01/03/18 09:07 Dextrose/Sodium Chloride 1,000 ml @ 100 mls/hr Q10H IV 01/02/18 07:30 02/01/18 07:29 01/03/18 03:24 Diatrizoate Meglum/ Diatrizoate Sod (Gastrografin) 60 ml NOW PRN RECTAL Radiology Procedure 01/02/18 10:15 01/04/18 10:06 Folic Acid (Folate) 2 mg DAILY ORAL 01/03/18 09:00 02/02/18 08:59 01/03/18 09:08 Guaifenesin (Mucinex ER) 600 mg TWICE A DAY ORAL 01/02/18 21:00 02/01/18 20:59 01/03/18 09:08 Iron Sucrose 100 mg/Sodium Chloride 60 ml @ 240 mls/hr BEDTIME IV 01/04/18 21:00 01/08/18 21:14 Iron Sucrose 200 mg/Sodium Chloride 120 ml @ 240 mls/hr ONCE IV 01/03/18 21:00 01/03/18 22:00 Mirtazapine (Remeron) 15 mg BEDTIME ORAL 01/02/18 21:00 02/01/18 20:59 01/02/18 21:50 Oxycodone/ Acetaminophen (Percocet 10/325) 1 tab QIDPRN PRN ORAL Severe Pain (Pain Scale 7-10) 01/02/18 12:00 01/09/18 11:59 01/03/18 04:56 Pantoprazole (Protonix) 40 mg EVERY 12 HOURS IVP 01/02/18 09:00 02/01/18 08:59 01/03/18 09:07 Piperacillin Sod/ Tazobactam Sod 3.375 gm/Dextrose 110 ml @ 27.5 mls/hr EVERY 8 HOURS IVPB 01/02/18 10:00 01/07/18 09:59 01/03/18 05:27 Tamsulosin HCl (Flomax) 0.4 mg BEDTIME ORAL 01/02/18 21:00 02/01/18 20:59 01/02/18 21:50 Kiel Castellon MD Jan 03, 2018 10:15
--- NOTE | 2018-01-03 10:57 | General Progress Note ---
Assessment/Plan Assessment/Plan S: I am ok O: appears sob and fatigued PHYSICAL EXAMINATION:HEAD AND NECK: Atraumatic and normocephalic. CHEST: Clear to auscultation. No wheezing. No crackles. HEART: S1 and S2. Tachycardic. Negative for S3. Negative for S4. ABDOMEN: Morbidly obese. Negative for any organomegaly. Negative for any severe tenderness. NEUROLOGIC: The patient is awake, alert, and oriented x3, sleepy. Meds: reviewed and reconciled, including but not limited to Venofer ASSESSMENT AND PLAN: 1. Sepsis, source working in progress. 2. GI bleed - acute. 3. Diabetes type 2. 4. Hypertension. 5. Hyperlipidemia. 6. Anxiety depression. 7. Noncompliance with medical advice - history of. 8. iron Deficiency Anemia 9. DVT- history of Plan: PanEndoscopy on Friday Will monitor hh notes from GI and Nephro reviewed Subjective Allergies: Coded Allergies: NO KNOWN DRUG ALLERGIES (Unverified Allergy, Unknown, 02/20/14) Objective Last 24 Hour Vital Signs Date Time Temp Pulse Resp B/P (MAP) Pulse Ox O2 Delivery O2 Flow Rate FiO2 01/03/18 09:00 Nasal Cannula 2.0 01/03/18 08:00 97.5 89 21 142/78 (99) 91 97.5 01/03/18 07:52 108 20 93 Room Air 01/03/18 07:42 101 20 96 Room Air 01/03/18 07:17 102 18 Room Air 21 01/03/18 07:17 Room Air 01/03/18 04:00 97.7 105 20 128/80 (96) 91 97.7 01/03/18 04:00 99 01/03/18 00:00 113 01/03/18 00:00 98.0 112 20 115/63 (80) 92 98.0 01/02/18 21:00 Nasal Cannula 2.0 01/02/18 20:39 98 20 96 01/02/18 20:32 109 20 95 Room Air 01/02/18 20:28 Room Air 01/02/18 20:28 109 18 Room Air 01/02/18 20:00 98.3 114 20 118/75 (89) 92 98.3 01/02/18 20:00 114 01/02/18 16:00 106 01/02/18 16:00 97.7 104 103/79 (87) 97.7 01/02/18 12:00 97.7 98 143/76 (98) 97.7 01/02/18 12:00 104 Intake and Output 01/02/18 01/03/18 19:00 07:00 Intake Total 660 ml 612.500 ml Output Total 900 ml 2200 ml Balance -240 ml -1587.500 ml Intake Oral 260 ml IV Total 400 ml 612.500 ml Output Urine Total 900 ml 2200 ml # Voids 7 Laboratory Tests 01/02/18 15:00: Arterial Blood pH 7.370, Arterial Blood Partial Pressure CO2 48.4H, Arterial Blood Partial Pressure O2 70.8L, Arterial Blood HCO3 27.4H, Arterial Blood Oxygen Saturation 92.1, Arterial Blood Base Excess 1.6, Bolivar Test Positive 01/02/18 16:32: Urine Random Sodium 96 01/02/18 18:10: White Blood Count 23.2*H, Red Blood Count 3.53L, Hemoglobin 7.8L, Hematocrit 24.9L, Mean Corpuscular Volume 71L, Mean Corpuscular Hemoglobin 22.1L, Mean Corpuscular Hemoglobin Concent 31.3L, Red Cell Distribution Width 19.5H, Platelet Count 169, Mean Platelet Volume 7.2, Neutrophils (%) (Auto) , Lymphocytes (%) (Auto) , Monocytes (%) (Auto) , Eosinophils (%) (Auto) , Basophils (%) (Auto) , Differential Total Cells Counted 100, Neutrophils % ( Manual) 87H, Lymphocytes % (Manual) 9L, Monocytes % (Manual) 2, Eosinophils % ( Manual) 0, Basophils % (Manual) 0, Band Neutrophils 2, Platelet Estimate DecreasedL, Platelet Morphology , Giant Platelets 1+, Polychromasia 1+, Hypochromasia 3+, Anisocytosis 2+, Microcytosis 3+ 01/03/18 05:18: White Blood Count 18.4H, Red Blood Count 3.52L, Hemoglobin 7.6L, Hematocrit 25.1L, Mean Corpuscular Volume 71L, Mean Corpuscular Hemoglobin 21.7L, Mean Corpuscular Hemoglobin Concent 30.3L, Red Cell Distribution Width 20.0H, Platelet Count 164, Mean Platelet Volume 7.0, Neutrophils (%) (Auto) , Lymphocytes (%) (Auto) , Monocytes (%) (Auto) , Eosinophils (%) (Auto) , Basophils (%) (Auto) , Neutrophils % (Manual) [Pending], Lymphocytes % (Manual) [Pending], Platelet Estimate [Pending], Platelet Morphology [Pending], Sodium Level 140, Potassium Level 4.4, Chloride Level 108H, Carbon Dioxide Level 29, Anion Gap 3L, Blood Urea Nitrogen 29H, Creatinine 1.3, Estimat Glomerular Filtration Rate > 60, Glucose Level 123H, Uric Acid 4.1, Calcium Level 8.5, Phosphorus Level 3.3, Magnesium Level 2.7H, Iron Level 12L, Total Iron Binding Capacity 318, Percent Iron Saturation 4L, Unsaturated Iron Binding 306, Ferritin 21, Total Bilirubin 0.9, Gamma Glutamyl Transpeptidase 8, Aspartate Amino Transf (AST/SGOT) 23, Alanine Aminotransferase (ALT/SGPT) 32, Alkaline Phosphatase 35L, Total Creatine Kinase 671H, Troponin I 0.012, Pro-B-Type Natriuretic Peptide 457H, Total Protein 6.7, Albumin 3.0L, Globulin 3.7, Albumin /Globulin Ratio 0.8L, Vitamin B12 Level 907, Folate 5.1L, Thyroid Stimulating Hormone (TSH) 0.897 Height (Feet): 6 Height (Inches): 0.00 Weight (Pounds): 296 Munir Mcintosh MD Jan 03, 2018 10:57
[2018-01-03 12:00] VITALS: BP 133/76
--- NOTE | 2018-01-03 12:36 | General Progress Note ---
Assessment/Plan Status: unchanged Assessment/Plan #. Anemia, potentially secondary to possibly GI bleed. imaging has been reviewed, iron level is low --> Anemia workup reviewed, will trend daily. --> Ferritin at 21, IV iron ordered x5 --> May transfuse blood if hgb <8 --> hemoglobin goal above 7. --> CT: No findings to account for given history of GI bleed. Consider upper and lower endoscopy for further evaluation and/or nuclear medicine GI bleeding scan. #. Leukocytosis. likely due to pna --> on abx, wbc improving #. 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 Sepsis secondary to UTI --> Continue on antibiotics. #. GISSELLE, secondary to dehydration. #. Possible GI bleed. --> gi eval #. Pneumonia, ground-glass opacities bilaterally, being seen by ID service as well as Pulmonary team. #. Lung nodule seen on the bases. --> CT scan of the abdomen and pelvis: patchy groundglass opacities within the lungs involving both lower lobes nonspecific --> Closely monitor. Subjective Date patient seen: Jan 03, 2018 ROS Limited/Unobtainable: Yes Constitutional: Reports: malaise Respiratory: Reports: shortness of breath Hematologic/Lymphatic: Reports: anemia Allergies: Coded Allergies: NO KNOWN DRUG ALLERGIES (Unverified Allergy, Unknown, 02/20/14) All Systems: reviewed and negative except above Subjective No acute events. Pt resting in bed. Objective Last 24 Hour Vital Signs Date Time Temp Pulse Resp B/P (MAP) Pulse Ox O2 Delivery O2 Flow Rate FiO2 01/03/18 09:00 Nasal Cannula 2.0 01/03/18 08:00 97.5 89 21 142/78 (99) 91 97.5 01/03/18 08:00 97 01/03/18 07:52 108 20 93 Room Air 01/03/18 07:42 101 20 96 Room Air 01/03/18 07:17 102 18 Room Air 21 01/03/18 07:17 Room Air 01/03/18 04:00 97.7 105 20 128/80 (96) 91 97.7 01/03/18 04:00 99 01/03/18 00:00 113 01/03/18 00:00 98.0 112 20 115/63 (80) 92 98.0 01/02/18 21:00 Nasal Cannula 2.0 01/02/18 20:39 98 20 96 01/02/18 20:32 109 20 95 Room Air 01/02/18 20:28 Room Air 01/02/18 20:28 109 18 Room Air 01/02/18 20:00 98.3 114 20 118/75 (89) 92 98.3 01/02/18 20:00 114 01/02/18 16:00 106 01/02/18 16:00 97.7 104 103/79 (87) 97.7 Intake and Output 01/02/18 01/03/18 19:00 07:00 Intake Total 660 ml 612.500 ml Output Total 900 ml 2200 ml Balance -240 ml -1587.500 ml Intake Oral 260 ml IV Total 400 ml 612.500 ml Output Urine Total 900 ml 2200 ml # Voids 7 Laboratory Tests 01/02/18 15:00: Arterial Blood pH 7.370, Arterial Blood Partial Pressure CO2 48.4H, Arterial Blood Partial Pressure O2 70.8L, Arterial Blood HCO3 27.4H, Arterial Blood Oxygen Saturation 92.1, Arterial Blood Base Excess 1.6, [place]ar Test Positive 01/02/18 16:32: Urine Random Sodium 96 01/02/18 18:10: White Blood Count 23.2*H, Red Blood Count 3.53L, Hemoglobin 7.8L, Hematocrit 24.9L, Mean Corpuscular Volume 71L, Mean Corpuscular Hemoglobin 22.1L, Mean Corpuscular Hemoglobin Concent 31.3L, Red Cell Distribution Width 19.5H, Platelet Count 169, Mean Platelet Volume 7.2, Neutrophils (%) (Auto) , Lymphocytes (%) (Auto) , Monocytes (%) (Auto) , Eosinophils (%) (Auto) , Basophils (%) (Auto) , Differential Total Cells Counted 100, Neutrophils % ( Manual) 87H, Lymphocytes % (Manual) 9L, Monocytes % (Manual) 2, Eosinophils % ( Manual) 0, Basophils % (Manual) 0, Band Neutrophils 2, Platelet Estimate DecreasedL, Platelet Morphology , Giant Platelets 1+, Polychromasia 1+, Hypochromasia 3+, Anisocytosis 2+, Microcytosis 3+ 01/03/18 05:18: White Blood Count 18.4H, Red Blood Count 3.52L, Hemoglobin 7.6L, Hematocrit 25.1L, Mean Corpuscular Volume 71L, Mean Corpuscular Hemoglobin 21.7L, Mean Corpuscular Hemoglobin Concent 30.3L, Red Cell Distribution Width 20.0H, Platelet Count 164, Mean Platelet Volume 7.0, Neutrophils (%) (Auto) , Lymphocytes (%) (Auto) , Monocytes (%) (Auto) , Eosinophils (%) (Auto) , Basophils (%) (Auto) , Differential Total Cells Counted 100, Neutrophils % ( Manual) 88H, Lymphocytes % (Manual) 6L, Monocytes % (Manual) 6, Eosinophils % ( Manual) 0, Basophils % (Manual) 0, Band Neutrophils 0, Platelet Estimate Adequate, Platelet Morphology Normal, Hypochromasia 3+, Anisocytosis 2+, Microcytosis 2+, Sodium Level 140, Potassium Level 4.4, Chloride Level 108H, Carbon Dioxide Level 29, Anion Gap 3L, Blood Urea Nitrogen 29H, Creatinine 1.3, Estimat Glomerular Filtration Rate > 60, Glucose Level 123H, Uric Acid 4.1, Calcium Level 8.5, Phosphorus Level 3.3, Magnesium Level 2.7H, Iron Level 12L, Total Iron Binding Capacity 318, Percent Iron Saturation 4L, Unsaturated Iron Binding 306, Ferritin 21, Total Bilirubin 0.9, Gamma Glutamyl Transpeptidase 8, Aspartate Amino Transf (AST/SGOT) 23, Alanine Aminotransferase (ALT/SGPT) 32, Alkaline Phosphatase 35L, Total Creatine Kinase 671H, Troponin I 0.012, Pro-B- Type Natriuretic Peptide 457H, Total Protein 6.7, Albumin 3.0L, Globulin 3.7, Albumin/Globulin Ratio 0.8L, Vitamin B12 Level 907, Folate 5.1L, Thyroid Stimulating Hormone (TSH) 0.897 Height (Feet): 6 Height (Inches): 0.00 Weight (Pounds): 296 General Appearance: lethargic EENT: PERRL/EOMI Neck: normal alignment Cardiovascular: tachycardia Respiratory/Chest: decreased breath sounds Cristian Mac MD Jan 03, 2018 12:36
[2018-01-03] MEDS: Docusate 100mg cap ORAL SCH ×2 (14:22→18:16)
--- NOTE | 2018-01-03 15:13 | Infectious Diseases Prog Note ---
Assessment/Plan Problems: (1) Pneumonia Assessment & Plan: with B/L basal infiltrates , await sputum culture and continue zosyn empirically (2) Sepsis Assessment & Plan: due to the above , await blood culture and continue zosyn empiric coverage (3) Acute renal failure Assessment & Plan: monitor renal function, avoid nephrotoxics (4) Upper GI bleed Assessment & Plan: monitor H/H , transfuse as needed , needs EGD (5) Anemia Assessment & Plan: monitor H/H , transfuse as needed Subjective Constitutional: Reports: fatigue HEENT: Reports: no symptoms Respiratory: Reports: dry cough Breasts: Reports: no symptoms Cardiovascular: Reports: no symptoms Gastrointestinal/Abdominal: Reports: no symptoms Genitourinary: Reports: no symptoms Psychiatric: Reports: no symptoms Skin: Reports: no symptoms Endocrine: Reports: no symptoms Hematologic: Reports: no symptoms Musculoskeletal: Reports: no symptoms Allergies: Coded Allergies: NO KNOWN DRUG ALLERGIES (Unverified Allergy, Unknown, 02/20/14) Objective Vital Signs Last 24 Hour Vital Signs Date Time Temp Pulse Resp B/P (MAP) Pulse Ox O2 Delivery O2 Flow Rate FiO2 01/03/18 09:00 Nasal Cannula 2.0 01/03/18 08:00 97.5 89 21 142/78 (99) 91 97.5 01/03/18 08:00 97 01/03/18 07:52 108 20 93 Room Air 01/03/18 07:42 101 20 96 Room Air 01/03/18 07:17 102 18 Room Air 21 01/03/18 07:17 Room Air 01/03/18 04:00 97.7 105 20 128/80 (96) 91 97.7 01/03/18 04:00 99 01/03/18 00:00 113 01/03/18 00:00 98.0 112 20 115/63 (80) 92 98.0 01/02/18 21:00 Nasal Cannula 2.0 01/02/18 20:39 98 20 96 01/02/18 20:32 109 20 95 Room Air 01/02/18 20:28 Room Air 01/02/18 20:28 109 18 Room Air 01/02/18 20:00 98.3 114 20 118/75 (89) 92 98.3 01/02/18 20:00 114 01/02/18 16:00 106 01/02/18 16:00 97.7 104 103/79 (87) 97.7 Height (Feet): 6 Height (Inches): 0.00 Weight (Pounds): 296 General Appearance: WD/WN, no acute distress HEENT: normocephalic, atraumatic, anicteric, mucous membranes moist, PERRL, EOMI, pharynx normal, supple, no JVD Respiratory/Chest: chest wall non-tender, normal breath sounds, no respiratory distress, no accessory muscle use, decreased breath sounds, crackles/rales Cardiovascular: normal peripheral pulses, normal rate, regular rhythm, no gallop/murmur, no JVD Abdomen: normal bowel sounds, soft, non tender, no organomegaly, no mass, no scars, distended Extremities: no cyanosis, no clubbing Skin: no rash, no lesions, no ulcers Neurologic/Psychiatric: alert, oriented x 3, responsive Microbiology Date/Time Source Procedure Growth Status 01/02/18 00:25 Blood Blood Culture - Preliminary NO GROWTH AFTER 24 HOURS Resulted 01/02/18 00:10 Blood Blood Culture - Preliminary NO GROWTH AFTER 24 HOURS Resulted 01/02/18 16:36 Sputum Expectorated Gram Stain - Final Resulted 01/02/18 16:36 Sputum Expectorated Sputum Culture Pending Resulted Laboratory Tests Test 01/02/18 16:32 01/02/18 18:10 01/03/18 05:18 01/03/18 13:45 Urine Random Sodium 96 mmol/L (20-110) White Blood Count 23.2 K/UL (4.8-10.8) *H 18.4 K/UL (4.8-10.8) H Red Blood Count 3.53 M/UL (4.70-6.10) L 3.52 M/UL (4.70-6.10) L Hemoglobin 7.8 G/DL (14.2-18.0) L 7.6 G/DL (14.2-18.0) L Hematocrit 24.9 % (42.0-52.0) L 25.1 % (42.0-52.0) L Mean Corpuscular Volume 71 FL (80-99) L 71 FL (80-99) L Mean Corpuscular Hemoglobin 22.1 PG (27.0-31.0) L 21.7 PG (27.0-31.0) L Mean Corpuscular Hemoglobin Concent 31.3 G/DL (32.0-36.0) L 30.3 G/DL (32.0-36.0) L Red Cell Distribution Width 19.5 % (11.6-14.8) H 20.0 % (11.6-14.8) H Platelet Count 169 K/UL (150-450) 164 K/UL (150-450) Mean Platelet Volume 7.2 FL (6.5-10.1) 7.0 FL (6.5-10.1) Neutrophils (%) (Auto) % (45.0-75.0) % (45.0-75.0) Lymphocytes (%) (Auto) % (20.0-45.0) % (20.0-45.0) Monocytes (%) (Auto) % (1.0-10.0) % (1.0-10.0) Eosinophils (%) (Auto) % (0.0-3.0) % (0.0-3.0) Basophils (%) (Auto) % (0.0-2.0) % (0.0-2.0) Differential Total Cells Counted 100 100 Neutrophils % (Manual) 87 % (45-75) H 88 % (45-75) H Lymphocytes % (Manual) 9 % (20-45) L 6 % (20-45) L Monocytes % (Manual) 2 % (1-10) 6 % (1-10) Eosinophils % (Manual) 0 % (0-3) 0 % (0-3) Basophils % (Manual) 0 % (0-2) 0 % (0-2) Band Neutrophils 2 % (0-8) 0 % (0-8) Platelet Estimate Decreased L Adequate Platelet Morphology Normal Giant Platelets 1+ Polychromasia 1+ Hypochromasia 3+ 3+ Anisocytosis 2+ 2+ Microcytosis 3+ 2+ Sodium Level 140 MMOL/L (136-145) Potassium Level 4.4 MMOL/L (3.5-5.1) Chloride Level 108 MMOL/L (98-107) H Carbon Dioxide Level 29 MMOL/L (21-32) Anion Gap 3 mmol/L (5-15) L Blood Urea Nitrogen 29 mg/dL (7-18) H Creatinine 1.3 MG/DL (0.55-1.30) Estimat Glomerular Filtration Rate > 60 mL/min (>60) Glucose Level 123 MG/DL (74-106) H Uric Acid 4.1 MG/DL (2.6-7.2) Calcium Level 8.5 MG/DL (8.5-10.1) Phosphorus Level 3.3 MG/DL (2.5-4.9) Magnesium Level 2.7 MG/DL (1.8-2.4) H Iron Level 12 ug/dL (50-175) L Total Iron Binding Capacity 318 ug/dL (250-450) Percent Iron Saturation 4 % (15-50) L Unsaturated Iron Binding 306 ug/dL (112-346) Ferritin 21 NG/ML (8-388) Total Bilirubin 0.9 MG/DL (0.2-1.0) Gamma Glutamyl Transpeptidase 8 U/L (5-85) Aspartate Amino Transf (AST/SGOT) 23 U/L (15-37) Alanine Aminotransferase (ALT/SGPT) 32 U/L (12-78) Alkaline Phosphatase 35 U/L (46-116) L Total Creatine Kinase 671 U/L (26-308) H Troponin I 0.012 ng/mL (0.000-0.056) Pro-B-Type Natriuretic Peptide 457 pg/mL (0-125) H Total Protein 6.7 G/DL (6.4-8.2) Albumin 3.0 G/DL (3.4-5.0) L Globulin 3.7 g/dL Albumin/Globulin Ratio 0.8 (1.0-2.7) L Vitamin B12 Level 907 PG/ML (193-986) Folate 5.1 NG/ML (8.6-58.9) L Thyroid Stimulating Hormone (TSH) 0.897 uiU/mL (0.358-3.740) Stool Occult Blood Pending Current Medications Medications (Trade) Dose Ordered Sig/Cory Route PRN Reason Start Time Stop Time Status Last Admin Dose Admin Albuterol/ Ipratropium (Albuterol/ Ipratropium) 3 ml Q4H PRN HHN Shortness of Breath 01/02/18 06:45 01/07/18 06:44 01/03/18 07:40 Bupropion HCl (Wellbutrin SR) 150 mg DAILY ORAL 01/02/18 09:00 02/01/18 08:59 01/03/18 09:07 Dextrose/Sodium Chloride 1,000 ml @ 50 mls/hr Q20H IV 01/03/18 10:15 02/02/18 10:14 01/03/18 11:15 Diatrizoate Meglum/ Diatrizoate Sod (Gastrografin) 60 ml NOW PRN RECTAL Radiology Procedure 01/02/18 10:15 01/04/18 10:06 Docusate Sodium (Colace) 100 mg THREE TIMES A DAY ORAL 01/03/18 13:00 02/02/18 12:59 01/03/18 14:22 Folic Acid (Folate) 2 mg DAILY ORAL 01/03/18 09:00 02/02/18 08:59 01/03/18 09:08 Guaifenesin (Mucinex ER) 600 mg TWICE A DAY ORAL 01/02/18 21:00 02/01/18 20:59 01/03/18 09:08 Iron Sucrose 100 mg/Sodium Chloride 60 ml @ 240 mls/hr BEDTIME IV 01/04/18 21:00 01/08/18 21:14 Iron Sucrose 200 mg/Sodium Chloride 120 ml @ 240 mls/hr ONCE IV 01/03/18 21:00 01/03/18 22:00 Mirtazapine (Remeron) 15 mg BEDTIME ORAL 01/02/18 21:00 02/01/18 20:59 01/02/18 21:50 Oxycodone/ Acetaminophen (Percocet 10/325) 1 tab QIDPRN PRN ORAL Severe Pain (Pain Scale 7-10) 01/02/18 12:00 01/09/18 11:59 01/03/18 04:56 Pantoprazole (Protonix) 40 mg EVERY 12 HOURS IVP 01/02/18 09:00 02/01/18 08:59 01/03/18 09:07 Piperacillin Sod/ Tazobactam Sod 3.375 gm/Dextrose 110 ml @ 27.5 mls/hr EVERY 8 HOURS IVPB 01/02/18 10:00 01/07/18 09:59 01/03/18 14:22 Tamsulosin HCl (Flomax) 0.4 mg BEDTIME ORAL 01/02/18 21:00 02/01/18 20:59 01/02/18 21:50 Doris Hunt M.D. Jan 03, 2018 15:13
[2018-01-03 16:06] VITALS: BP 158/71
[2018-01-03 18:32] LABS: HEMATOCRIT 24.4 % (42.0-52.0); HEMOGLOBIN 7.7 G/DL (14.2-18.0); MEAN CORPUSCULAR VOLUME 71 FL (80-99); PLATELET COUNT 189 K/UL (150-450); RED BLOOD COUNT 3.43 M/UL (4.70-6.10); RED CELL DISTRIBUTION WIDTH 20.2 % (11.6-14.8); WHITE BLOOD COUNT 13.7 K/UL (4.8-10.8)
[2018-01-03 20:00] VITALS: BP 123/82
[2018-01-03] MEDS ORDERED: Iron Sucrose 200 MG in NS 110 ML IV SCH (21:00)
[2018-01-03] MEDS ORDERED: Iron Sucrose 100 MG in NS 55 ML IV SCH (21:00)
[2018-01-03] MEDS: Tamsulosin 0.4mg cap ORAL SCH (21:41)
--- NOTE | 2018-01-03 23:17 | General Progress Note ---
Subjective Allergies: Coded Allergies: NO KNOWN DRUG ALLERGIES (Unverified Allergy, Unknown, 02/20/14) Objective Last 24 Hour Vital Signs Date Time Temp Pulse Resp B/P (MAP) Pulse Ox O2 Delivery O2 Flow Rate FiO2 01/03/18 21:00 Nasal Cannula 2.0 01/03/18 20:21 Room Air 01/03/18 20:21 100 18 Room Air 21 01/03/18 20:00 98.0 109 20 123/82 (96) 94 98.0 01/03/18 16:06 96.9 102 19 158/71 (100) 94 96.9 01/03/18 16:00 105 01/03/18 12:00 98.3 87 21 133/76 (95) 94 98.3 01/03/18 12:00 104 01/03/18 09:00 Nasal Cannula 2.0 01/03/18 08:00 97.5 89 21 142/78 (99) 91 97.5 01/03/18 08:00 97 01/03/18 07:52 108 20 93 Room Air 01/03/18 07:42 101 20 96 Room Air 01/03/18 07:17 102 18 Room Air 21 01/03/18 07:17 Room Air 01/03/18 04:00 97.7 105 20 128/80 (96) 91 97.7 01/03/18 04:00 99 01/03/18 00:00 113 01/03/18 00:00 98.0 112 20 115/63 (80) 92 98.0 Intake and Output 01/02/18 01/03/18 19:00 07:00 Intake Total 660 ml 612.500 ml Output Total 900 ml 2200 ml Balance -240 ml -1587.500 ml Intake Oral 260 ml IV Total 400 ml 612.500 ml Output Urine Total 900 ml 2200 ml # Voids 7 Laboratory Tests 01/03/18 05:18: White Blood Count 18.4H, Red Blood Count 3.52L, Hemoglobin 7.6L, Hematocrit 25.1L, Mean Corpuscular Volume 71L, Mean Corpuscular Hemoglobin 21.7L, Mean Corpuscular Hemoglobin Concent 30.3L, Red Cell Distribution Width 20.0H, Platelet Count 164, Mean Platelet Volume 7.0, Neutrophils (%) (Auto) , Lymphocytes (%) (Auto) , Monocytes (%) (Auto) , Eosinophils (%) (Auto) , Basophils (%) (Auto) , Differential Total Cells Counted 100, Neutrophils % ( Manual) 88H, Lymphocytes % (Manual) 6L, Monocytes % (Manual) 6, Eosinophils % ( Manual) 0, Basophils % (Manual) 0, Band Neutrophils 0, Platelet Estimate Adequate, Platelet Morphology Normal, Hypochromasia 3+, Anisocytosis 2+, Microcytosis 2+, Sodium Level 140, Potassium Level 4.4, Chloride Level 108H, Carbon Dioxide Level 29, Anion Gap 3L, Blood Urea Nitrogen 29H, Creatinine 1.3, Estimat Glomerular Filtration Rate > 60, Glucose Level 123H, Uric Acid 4.1, Calcium Level 8.5, Phosphorus Level 3.3, Magnesium Level 2.7H, Iron Level 12L, Total Iron Binding Capacity 318, Percent Iron Saturation 4L, Unsaturated Iron Binding 306, Ferritin 21, Total Bilirubin 0.9, Gamma Glutamyl Transpeptidase 8, Aspartate Amino Transf (AST/SGOT) 23, Alanine Aminotransferase (ALT/SGPT) 32, Alkaline Phosphatase 35L, Total Creatine Kinase 671H, Troponin I 0.012, Pro-B- Type Natriuretic Peptide 457H, Total Protein 6.7, Albumin 3.0L, Globulin 3.7, Albumin/Globulin Ratio 0.8L, Vitamin B12 Level 907, Folate 5.1L, Thyroid Stimulating Hormone (TSH) 0.897 01/03/18 13:45: Stool Occult Blood [Pending] 01/03/18 18:05: White Blood Count 13.7H, Red Blood Count 3.43L, Hemoglobin 7.7L, Hematocrit 24.4L, Mean Corpuscular Volume 71L, Mean Corpuscular Hemoglobin 22.4L, Mean Corpuscular Hemoglobin Concent 31.4L, Red Cell Distribution Width 20.2H, Platelet Count 189, Mean Platelet Volume 7.6, Neutrophils (%) (Auto) , Lymphocytes (%) (Auto) , Monocytes (%) (Auto) , Eosinophils (%) (Auto) , Basophils (%) (Auto) , Differential Total Cells Counted 100, Neutrophils % ( Manual) 78H, Lymphocytes % (Manual) 14L, Monocytes % (Manual) 6, Eosinophils % ( Manual) 2, Basophils % (Manual) 0, Band Neutrophils 0, Platelet Estimate Adequate, Platelet Morphology Normal, Hypochromasia 1+, Anisocytosis 2+, Microcytosis 1+, Schistocytes Occasional Height (Feet): 6 Height (Inches): 0.00 Weight (Pounds): 296 Vance Shepherd MD Jan 03, 2018 23:17
--- NOTE | 2018-01-03 23:17 | Consultation ---
History of Present Illness General Date patient seen: Jan 02, 2018 Chief Complaint: Dyspnea/Respdistress Referring physician: JENELLE ANDREA Reason for Consultation: GI BLEED Present Illness Allergies: Coded Allergies: NO KNOWN DRUG ALLERGIES (Unverified Allergy, Unknown, 02/20/14) Medication History Scheduled Albuterol Sulfate* (Proair Hfa*), 1 PUFF INH Q6H, (Reported) Amitriptyline Hcl* (Amitriptyline Hcl*), 25 MG ORAL BEDTIME, (Reported) Amlodipine Besylate* (Amlodipine Besylate*), 10 MG ORAL DAILY, (Reported) Bupropion Hcl* (Bupropion Hcl Sr*), 150 MG ORAL DAILY, (Reported) Gabapentin* (Gabapentin*), 300 MG ORAL DAILY, (Reported) Lisinopril* (Lisinopril*), 10 MG ORAL DAILY, (Reported) Lorazepam* (Lorazepam*), 2 MG ORAL DAILY, (Reported) Pregabalin (Lyrica), Unknown Dose ORAL THREE TIMES A DAY, (Reported) Warfarin Sod* (Coumadin*), 5 MG ORAL DAILY, (Reported) Patient History Healthcare decision maker Resuscitation status Full Code Advanced Directive on File Physical Exam Last 24 Hour Vital Signs Date Time Temp Pulse Resp B/P (MAP) Pulse Ox O2 Delivery O2 Flow Rate FiO2 01/03/18 21:00 Nasal Cannula 2.0 01/03/18 20:21 Room Air 01/03/18 20:21 100 18 Room Air 21 01/03/18 20:00 98.0 109 20 123/82 (96) 94 98.0 01/03/18 16:06 96.9 102 19 158/71 (100) 94 96.9 01/03/18 16:00 105 01/03/18 12:00 98.3 87 21 133/76 (95) 94 98.3 01/03/18 12:00 104 01/03/18 09:00 Nasal Cannula 2.0 01/03/18 08:00 97.5 89 21 142/78 (99) 91 97.5 01/03/18 08:00 97 01/03/18 07:52 108 20 93 Room Air 01/03/18 07:42 101 20 96 Room Air 01/03/18 07:17 102 18 Room Air 21 01/03/18 07:17 Room Air 01/03/18 04:00 97.7 105 20 128/80 (96) 91 97.7 01/03/18 04:00 99 01/03/18 00:00 113 01/03/18 00:00 98.0 112 20 115/63 (80) 92 98.0 Intake and Output 01/02/18 01/03/18 19:00 07:00 Intake Total 660 ml 612.500 ml Output Total 900 ml 2200 ml Balance -240 ml -1587.500 ml Intake Oral 260 ml IV Total 400 ml 612.500 ml Output Urine Total 900 ml 2200 ml # Voids 7 Laboratory Tests Test 01/03/18 05:18 01/03/18 13:45 01/03/18 18:05 White Blood Count 18.4 K/UL (4.8-10.8) H 13.7 K/UL (4.8-10.8) H Red Blood Count 3.52 M/UL (4.70-6.10) L 3.43 M/UL (4.70-6.10) L Hemoglobin 7.6 G/DL (14.2-18.0) L 7.7 G/DL (14.2-18.0) L Hematocrit 25.1 % (42.0-52.0) L 24.4 % (42.0-52.0) L Mean Corpuscular Volume 71 FL (80-99) L 71 FL (80-99) L Mean Corpuscular Hemoglobin 21.7 PG (27.0-31.0) L 22.4 PG (27.0-31.0) L Mean Corpuscular Hemoglobin Concent 30.3 G/DL (32.0-36.0) L 31.4 G/DL (32.0-36.0) L Red Cell Distribution Width 20.0 % (11.6-14.8) H 20.2 % (11.6-14.8) H Platelet Count 164 K/UL (150-450) 189 K/UL (150-450) Mean Platelet Volume 7.0 FL (6.5-10.1) 7.6 FL (6.5-10.1) Neutrophils (%) (Auto) % (45.0-75.0) % (45.0-75.0) Lymphocytes (%) (Auto) % (20.0-45.0) % (20.0-45.0) Monocytes (%) (Auto) % (1.0-10.0) % (1.0-10.0) Eosinophils (%) (Auto) % (0.0-3.0) % (0.0-3.0) Basophils (%) (Auto) % (0.0-2.0) % (0.0-2.0) Differential Total Cells Counted 100 100 Neutrophils % (Manual) 88 % (45-75) H 78 % (45-75) H Lymphocytes % (Manual) 6 % (20-45) L 14 % (20-45) L Monocytes % (Manual) 6 % (1-10) 6 % (1-10) Eosinophils % (Manual) 0 % (0-3) 2 % (0-3) Basophils % (Manual) 0 % (0-2) 0 % (0-2) Band Neutrophils 0 % (0-8) 0 % (0-8) Platelet Estimate Adequate Adequate Platelet Morphology Normal Normal Hypochromasia 3+ 1+ Anisocytosis 2+ 2+ Microcytosis 2+ 1+ Sodium Level 140 MMOL/L (136-145) Potassium Level 4.4 MMOL/L (3.5-5.1) Chloride Level 108 MMOL/L (98-107) H Carbon Dioxide Level 29 MMOL/L (21-32) Anion Gap 3 mmol/L (5-15) L Blood Urea Nitrogen 29 mg/dL (7-18) H Creatinine 1.3 MG/DL (0.55-1.30) Estimat Glomerular Filtration Rate > 60 mL/min (>60) Glucose Level 123 MG/DL (74-106) H Uric Acid 4.1 MG/DL (2.6-7.2) Calcium Level 8.5 MG/DL (8.5-10.1) Phosphorus Level 3.3 MG/DL (2.5-4.9) Magnesium Level 2.7 MG/DL (1.8-2.4) H Iron Level 12 ug/dL (50-175) L Total Iron Binding Capacity 318 ug/dL (250-450) Percent Iron Saturation 4 % (15-50) L Unsaturated Iron Binding 306 ug/dL (112-346) Ferritin 21 NG/ML (8-388) Total Bilirubin 0.9 MG/DL (0.2-1.0) Gamma Glutamyl Transpeptidase 8 U/L (5-85) Aspartate Amino Transf (AST/SGOT) 23 U/L (15-37) Alanine Aminotransferase (ALT/SGPT) 32 U/L (12-78) Alkaline Phosphatase 35 U/L (46-116) L Total Creatine Kinase 671 U/L (26-308) H Troponin I 0.012 ng/mL (0.000-0.056) Pro-B-Type Natriuretic Peptide 457 pg/mL (0-125) H Total Protein 6.7 G/DL (6.4-8.2) Albumin 3.0 G/DL (3.4-5.0) L Globulin 3.7 g/dL Albumin/Globulin Ratio 0.8 (1.0-2.7) L Vitamin B12 Level 907 PG/ML (193-986) Folate 5.1 NG/ML (8.6-58.9) L Thyroid Stimulating Hormone (TSH) 0.897 uiU/mL (0.358-3.740) Stool Occult Blood Pending Schistocytes Occasional Height (Feet): 6 Height (Inches): 0.00 Weight (Pounds): 296 Medications Current Medications Medications (Trade) Dose Ordered Sig/Cory Route PRN Reason Start Time Stop Time Status Last Admin Dose Admin Albuterol/ Ipratropium (Albuterol/ Ipratropium) 3 ml Q4H PRN HHN Shortness of Breath 01/02/18 06:45 01/07/18 06:44 01/03/18 07:40 Bupropion HCl (Wellbutrin SR) 150 mg DAILY ORAL 01/02/18 09:00 02/01/18 08:59 01/03/18 09:07 Dextrose/Sodium Chloride 1,000 ml @ 50 mls/hr Q20H IV 01/03/18 10:15 02/02/18 10:14 01/03/18 11:15 Diatrizoate Meglum/ Diatrizoate Sod (Gastrografin) 60 ml NOW PRN RECTAL Radiology Procedure 01/02/18 10:15 01/04/18 10:06 Docusate Sodium (Colace) 100 mg THREE TIMES A DAY ORAL 01/03/18 13:00 02/02/18 12:59 01/03/18 18:16 Folic Acid (Folate) 2 mg DAILY ORAL 01/03/18 09:00 02/02/18 08:59 01/03/18 09:08 Guaifenesin (Mucinex ER) 600 mg TWICE A DAY ORAL 01/02/18 21:00 02/01/18 20:59 01/03/18 18:16 Iron Sucrose 100 mg/Sodium Chloride 60 ml @ 240 mls/hr BEDTIME IV 01/04/18 21:00 01/08/18 21:14 Mirtazapine (Remeron) 15 mg BEDTIME ORAL 01/02/18 21:00 02/01/18 20:59 01/03/18 21:40 Oxycodone/ Acetaminophen (Percocet 10/325) 1 tab QIDPRN PRN ORAL Severe Pain (Pain Scale 7-10) 01/02/18 12:00 01/09/18 11:59 01/03/18 18:19 Pantoprazole (Protonix) 40 mg EVERY 12 HOURS IVP 01/02/18 09:00 02/01/18 08:59 01/03/18 21:41 Piperacillin Sod/ Tazobactam Sod 3.375 gm/Dextrose 110 ml @ 27.5 mls/hr EVERY 8 HOURS IVPB 01/02/18 10:00 01/07/18 09:59 01/03/18 21:41 Tamsulosin HCl (Flomax) 0.4 mg BEDTIME ORAL 01/02/18 21:00 02/01/18 20:59 01/03/18 21:41 Vance Shepherd MD Jan 03, 2018 23:17
[2018-01-04] VITALS: BP 119/85
[2018-01-04 04:00] VITALS: BP 137/97
[2018-01-04] MEDS: D5NS 1,000 ML IV SCH (05:30)
[2018-01-04] MEDS: Piperacillin/Tazobactam 3.375 GM in D5W 110 ML IVPB SCH (05:30)
[2018-01-04 06:17] LABS: HEMATOCRIT 24.9 % (42.0-52.0); HEMOGLOBIN 7.8 G/DL (14.2-18.0); MEAN CORPUSCULAR VOLUME 72 FL (80-99); PLATELET COUNT 192 K/UL (150-450); RED BLOOD COUNT 3.45 M/UL (4.70-6.10); WHITE BLOOD COUNT 9.4 K/UL (4.8-10.8)
[2018-01-04 06:49] LABS: ALANINE AMINOTRANSFERASE 31 U/L (12-78); ALBUMIN/GLOBULIN RATIO 0.8 (1.0-2.7); ALKALINE PHOSPHATASE 40 U/L (46-116); ANION GAP 5 mmol/L (5-15); ASPARTATE AMINO TRANSFERASE 17 U/L (15-37); BILIRUBIN,TOTAL 0.6 MG/DL (0.2-1.0); BLOOD UREA NITROGEN 22 mg/dL (7-18); CALCIUM 8.5 MG/DL (8.5-10.1); CARBON DIOXIDE 30 MMOL/L (21-32); CHLORIDE 108 MMOL/L (98-107); CREATININE 1.4 MG/DL (0.55-1.30); POTASSIUM 4.2 MMOL/L (3.5-5.1); SODIUM 143 MMOL/L (136-145)
[2018-01-04 06:53] LABS: PHOSPHORUS 3.5 MG/DL (2.5-4.9)
--- NOTE | 2018-01-04 06:55 | General Progress Note ---
Assessment/Plan Problem List: (1) Anemia ICD Codes: D64.9 - Anemia, unspecified SNOMED: 477610855 Qualifiers: Qualified Codes: D64.9 - Anemia, unspecified (2) Upper GI bleed ICD Codes: K92.2 - Gastrointestinal hemorrhage, unspecified SNOMED: 93703140 (3) COPD exacerbation ICD Codes: J44.1 - Chronic obstructive pulmonary disease with (acute) exacerbation SNOMED: 110373537 Assessment/Plan iv iron folic acid monitor H&H ppi BID plan EGD and colonoscopy on Friday if cleared by cardiology Subjective ROS Limited/Unobtainable: Yes Allergies: Coded Allergies: NO KNOWN DRUG ALLERGIES (Unverified Allergy, Unknown, 02/20/14) Objective Last 24 Hour Vital Signs Date Time Temp Pulse Resp B/P (MAP) Pulse Ox O2 Delivery O2 Flow Rate FiO2 01/04/18 04:00 98 01/04/18 04:00 98.4 105 20 137/97 (110) 93 98.4 01/04/18 00:00 99.0 105 20 119/85 (96) 93 99.0 01/04/18 00:00 109 01/03/18 21:00 Nasal Cannula 2.0 01/03/18 20:21 Room Air 01/03/18 20:21 100 18 Room Air 21 01/03/18 20:00 98.0 109 20 123/82 (96) 94 98.0 01/03/18 20:00 110 01/03/18 16:06 96.9 102 19 158/71 (100) 94 96.9 01/03/18 16:00 105 01/03/18 12:00 98.3 87 21 133/76 (95) 94 98.3 01/03/18 12:00 104 01/03/18 09:00 Nasal Cannula 2.0 01/03/18 08:00 97.5 89 21 142/78 (99) 91 97.5 01/03/18 08:00 97 01/03/18 07:52 108 20 93 Room Air 01/03/18 07:42 101 20 96 Room Air 01/03/18 07:17 102 18 Room Air 21 01/03/18 07:17 Room Air Intake and Output 01/03/18 01/04/18 19:00 07:00 Intake Total 780 ml Output Total 1100 ml 920 ml Balance -320 ml -920 ml Intake Oral 780 ml Output Urine Total 1100 ml 920 ml # Voids 4 4 # Bowel Movements 1 Laboratory Tests 01/03/18 13:45: Stool Occult Blood [Pending] 01/03/18 18:05: White Blood Count 13.7H, Red Blood Count 3.43L, Hemoglobin 7.7L, Hematocrit 24.4L, Mean Corpuscular Volume 71L, Mean Corpuscular Hemoglobin 22.4L, Mean Corpuscular Hemoglobin Concent 31.4L, Red Cell Distribution Width 20.2H, Platelet Count 189, Mean Platelet Volume 7.6, Neutrophils (%) (Auto) , Lymphocytes (%) (Auto) , Monocytes (%) (Auto) , Eosinophils (%) (Auto) , Basophils (%) (Auto) , Differential Total Cells Counted 100, Neutrophils % ( Manual) 78H, Lymphocytes % (Manual) 14L, Monocytes % (Manual) 6, Eosinophils % ( Manual) 2, Basophils % (Manual) 0, Band Neutrophils 0, Platelet Estimate Adequate, Platelet Morphology Normal, Hypochromasia 1+, Anisocytosis 2+, Microcytosis 1+, Schistocytes Occasional 01/04/18 05:40: White Blood Count 9.4, Red Blood Count 3.45L, Hemoglobin 7.8L, Hematocrit 24.9L , Mean Corpuscular Volume 72L, Mean Corpuscular Hemoglobin 22.5L, Mean Corpuscular Hemoglobin Concent 31.2L, Red Cell Distribution Width 20.0H, Platelet Count 192, Mean Platelet Volume 8.0, Neutrophils (%) (Auto) , Lymphocytes (%) (Auto) , Monocytes (%) (Auto) , Eosinophils (%) (Auto) , Basophils (%) (Auto) , Neutrophils % (Manual) [Pending], Lymphocytes % (Manual) [Pending], Platelet Estimate [Pending], Platelet Morphology [Pending], Sodium Level 143, Potassium Level 4.2, Chloride Level 108H, Carbon Dioxide Level 30, Anion Gap 5, Blood Urea Nitrogen 22H, Creatinine 1.4H, Estimat Glomerular Filtration Rate > 60, Glucose Level 101, Uric Acid 3.8, Calcium Level 8.5, Phosphorus Level 3.5, Magnesium Level 2.4, Total Bilirubin 0.6, Aspartate Amino Transf (AST/SGOT) 17, Alanine Aminotransferase (ALT/SGPT) 31, Alkaline Phosphatase 40L, Total Protein 6.8, Albumin 3.0L, Globulin 3.8, Albumin/ Globulin Ratio 0.8L, Carcinoembryonic Antigen [Pending] Height (Feet): 6 Height (Inches): 0.00 Weight (Pounds): 296 General Appearance: alert EENT: normal ENT inspection Neck: supple Cardiovascular: normal rate Respiratory/Chest: decreased breath sounds Abdomen: normal bowel sounds, non tender, soft Extremities: non-tender Uday Vanegas MD Jan 04, 2018 06:55
[2018-01-04 08:00] VITALS: BP 129/86
[2018-01-04] MEDS: Pantoprazole Inj IVP SCH (09:00)
[2018-01-04] MEDS: guaiFENesin ER 600mg tab ORAL SCH (09:01)
[2018-01-04] MEDS: BuPROPion SR 150mg tab ORAL SCH (09:01)
[2018-01-04] MEDS: Docusate 100mg cap ORAL SCH (09:01)
--- NOTE | 2018-01-04 09:55 | Cardiology Progress Note ---
Assessment/Plan Assessment/Plan 1. Sinus pauses due to severe apneic episodes which occur during sleep and resolves upon awakening, discussed the importance of using CPAP mask. Still refusing this modality. 2. Paroxysmal atrial fibrillation, now in SR, off anticoagulant agents due to GI bleed. Left ventricular ejection fraction is approximately around 60% to 65%. 3. Moderate pulmonary HTN likely due to NIKKO. 4. Slight elevation of first troponin I level could be secondary to anemia vs renal failure, second trop I level normal, doubt ACS with lack of CP and lack of STT changes. Subjective Subjective Episodes of sinus pauses up to 10 seconds noticed, refusing Bipap/CPAP mask. Objective Last 24 Hour Vital Signs Date Time Temp Pulse Resp B/P (MAP) Pulse Ox O2 Delivery O2 Flow Rate FiO2 01/04/18 08:00 98.6 99 21 129/86 (100) 95 98.6 01/04/18 04:00 98 01/04/18 04:00 98.4 105 20 137/97 (110) 93 98.4 01/04/18 00:00 99.0 105 20 119/85 (96) 93 99.0 01/04/18 00:00 109 01/03/18 21:00 Nasal Cannula 2.0 01/03/18 20:21 Room Air 01/03/18 20:21 100 18 Room Air 21 01/03/18 20:00 98.0 109 20 123/82 (96) 94 98.0 01/03/18 20:00 110 01/03/18 16:06 96.9 102 19 158/71 (100) 94 96.9 01/03/18 16:00 105 01/03/18 12:00 98.3 87 21 133/76 (95) 94 98.3 01/03/18 12:00 104 Rhythm: PACs Intake and Output 01/03/18 01/04/18 19:00 07:00 Intake Total 780 ml Output Total 1100 ml 920 ml Balance -320 ml -920 ml Intake Oral 780 ml Output Urine Total 1100 ml 920 ml # Voids 4 4 # Bowel Movements 1 2D Echo: LVEF 55%, Mild LVH, LAE, RVSP 53 mmHg Laboratory Tests Test 01/03/18 13:45 01/03/18 18:05 01/04/18 05:40 Stool Occult Blood Pending White Blood Count 13.7 K/UL (4.8-10.8) H 9.4 K/UL (4.8-10.8) Red Blood Count 3.43 M/UL (4.70-6.10) L 3.45 M/UL (4.70-6.10) L Hemoglobin 7.7 G/DL (14.2-18.0) L 7.8 G/DL (14.2-18.0) L Hematocrit 24.4 % (42.0-52.0) L 24.9 % (42.0-52.0) L Mean Corpuscular Volume 71 FL (80-99) L 72 FL (80-99) L Mean Corpuscular Hemoglobin 22.4 PG (27.0-31.0) L 22.5 PG (27.0-31.0) L Mean Corpuscular Hemoglobin Concent 31.4 G/DL (32.0-36.0) L 31.2 G/DL (32.0-36.0) L Red Cell Distribution Width 20.2 % (11.6-14.8) H 20.0 % (11.6-14.8) H Platelet Count 189 K/UL (150-450) 192 K/UL (150-450) Mean Platelet Volume 7.6 FL (6.5-10.1) 8.0 FL (6.5-10.1) Neutrophils (%) (Auto) % (45.0-75.0) % (45.0-75.0) Lymphocytes (%) (Auto) % (20.0-45.0) % (20.0-45.0) Monocytes (%) (Auto) % (1.0-10.0) % (1.0-10.0) Eosinophils (%) (Auto) % (0.0-3.0) % (0.0-3.0) Basophils (%) (Auto) % (0.0-2.0) % (0.0-2.0) Differential Total Cells Counted 100 100 Neutrophils % (Manual) 78 % (45-75) H 68 % (45-75) Lymphocytes % (Manual) 14 % (20-45) L 19 % (20-45) L Monocytes % (Manual) 6 % (1-10) 12 % (1-10) H Eosinophils % (Manual) 2 % (0-3) 1 % (0-3) Basophils % (Manual) 0 % (0-2) 0 % (0-2) Band Neutrophils 0 % (0-8) 0 % (0-8) Platelet Estimate Adequate Adequate Platelet Morphology Normal Normal Hypochromasia 1+ 1+ Anisocytosis 2+ 2+ Microcytosis 1+ 1+ Schistocytes Occasional Polychromasia 1+ Sodium Level 143 MMOL/L (136-145) Potassium Level 4.2 MMOL/L (3.5-5.1) Chloride Level 108 MMOL/L (98-107) H Carbon Dioxide Level 30 MMOL/L (21-32) Anion Gap 5 mmol/L (5-15) Blood Urea Nitrogen 22 mg/dL (7-18) H Creatinine 1.4 MG/DL (0.55-1.30) H Estimat Glomerular Filtration Rate > 60 mL/min (>60) Glucose Level 101 MG/DL (74-106) Uric Acid 3.8 MG/DL (2.6-7.2) Calcium Level 8.5 MG/DL (8.5-10.1) Phosphorus Level 3.5 MG/DL (2.5-4.9) Magnesium Level 2.4 MG/DL (1.5-2.4) Total Bilirubin 0.6 MG/DL (0.2-1.0) Aspartate Amino Transf (AST/SGOT) 17 U/L (15-37) Alanine Aminotransferase (ALT/SGPT) 31 U/L (12-78) Alkaline Phosphatase 40 U/L (46-116) L Total Protein 6.8 G/DL (6.4-8.2) Albumin 3.0 G/DL (3.4-5.0) L Globulin 3.8 g/dL Albumin/Globulin Ratio 0.8 (1.0-2.7) L Carcinoembryonic Antigen Pending Microbiology Date/Time Source Procedure Growth Status 01/02/18 00:25 Blood Blood Culture - Preliminary NO GROWTH AFTER 48 HOURS Resulted 01/02/18 00:10 Blood Blood Culture - Preliminary NO GROWTH AFTER 48 HOURS Resulted 01/02/18 16:36 Sputum Expectorated Gram Stain - Final Complete 01/02/18 16:36 Sputum Expectorated Sputum Culture - Final NORMAL UPPER RESPIRATORY ROBY PRESENT Complete Objective HEENT: Atraumatic and normocephalic. Anicteric. Pupils are equal, round, and reactive to light and accommodation. Extraocular muscles are intact. NECK: JVP less than 5 cm. No carotid bruit. Carotid upstrokes 2+ bilaterally. CARDIOVASCULAR: Normal S1 and S2. Regular rate and rhythm. No murmurs, gallops, or rubs. LUNGS: Diminished breath sounds in both bases. ABDOMEN: Soft, nontender, and nondistended. No hepatosplenomegaly. Positive bowel sounds. EXTREMITIES: There is 1+ bilateral leg edema. Alejandro Turner MD Jan 04, 2018 09:55
--- NOTE | 2018-01-04 10:34 | General Progress Note ---
Assessment/Plan Status: unchanged Assessment/Plan #. Anemia, potentially secondary to possibly GI bleed. imaging has been reviewed, iron level is low --> Anemia workup reviewed, will trend daily. --> Ferritin at 21, IV iron ordered x5 --> May transfuse blood if hgb <8 --> hemoglobin goal above 7. --> CT: No findings to account for given history of GI bleed. Consider upper and lower endoscopy for further evaluation and/or nuclear medicine GI bleeding scan. #. Leukocytosis. likely due to pna --> on abx, wbc improving #. 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 Sepsis secondary to UTI --> Continue on antibiotics. #. GISSELLE, secondary to dehydration. #. Possible GI bleed. --> gi eval #. Pneumonia, ground-glass opacities bilaterally, being seen by ID service as well as Pulmonary team. #. Lung nodule seen on the bases. --> CT scan of the abdomen and pelvis: patchy groundglass opacities within the lungs involving both lower lobes nonspecific --> Closely monitor. The time the note was entered does not necessarily correspond to the time the patient was seen. Subjective Date patient seen: Jan 04, 2018 ROS Limited/Unobtainable: Yes Hematologic/Lymphatic: Reports: anemia Allergies: Coded Allergies: NO KNOWN DRUG ALLERGIES (Unverified Allergy, Unknown, 02/20/14) All Systems: reviewed and negative except above Subjective Pt refusing Bipap/CPAP mask. No signs of acute distress. Objective Last 24 Hour Vital Signs Date Time Temp Pulse Resp B/P (MAP) Pulse Ox O2 Delivery O2 Flow Rate FiO2 01/04/18 08:00 98.6 99 21 129/86 (100) 95 98.6 01/04/18 04:00 98 01/04/18 04:00 98.4 105 20 137/97 (110) 93 98.4 01/04/18 00:00 99.0 105 20 119/85 (96) 93 99.0 01/04/18 00:00 109 01/03/18 21:00 Nasal Cannula 2.0 01/03/18 20:21 Room Air 01/03/18 20:21 100 18 Room Air 21 01/03/18 20:00 98.0 109 20 123/82 (96) 94 98.0 01/03/18 20:00 110 01/03/18 16:06 96.9 102 19 158/71 (100) 94 96.9 01/03/18 16:00 105 01/03/18 12:00 98.3 87 21 133/76 (95) 94 98.3 01/03/18 12:00 104 Intake and Output 01/03/18 01/04/18 19:00 07:00 Intake Total 780 ml Output Total 1100 ml 920 ml Balance -320 ml -920 ml Intake Oral 780 ml Output Urine Total 1100 ml 920 ml # Voids 4 4 # Bowel Movements 1 Laboratory Tests 01/03/18 13:45: Stool Occult Blood [Pending] 01/03/18 18:05: White Blood Count 13.7H, Red Blood Count 3.43L, Hemoglobin 7.7L, Hematocrit 24.4L, Mean Corpuscular Volume 71L, Mean Corpuscular Hemoglobin 22.4L, Mean Corpuscular Hemoglobin Concent 31.4L, Red Cell Distribution Width 20.2H, Platelet Count 189, Mean Platelet Volume 7.6, Neutrophils (%) (Auto) , Lymphocytes (%) (Auto) , Monocytes (%) (Auto) , Eosinophils (%) (Auto) , Basophils (%) (Auto) , Differential Total Cells Counted 100, Neutrophils % ( Manual) 78H, Lymphocytes % (Manual) 14L, Monocytes % (Manual) 6, Eosinophils % ( Manual) 2, Basophils % (Manual) 0, Band Neutrophils 0, Platelet Estimate Adequate, Platelet Morphology Normal, Hypochromasia 1+, Anisocytosis 2+, Microcytosis 1+, Schistocytes Occasional 01/04/18 05:40: White Blood Count 9.4, Red Blood Count 3.45L, Hemoglobin 7.8L, Hematocrit 24.9L , Mean Corpuscular Volume 72L, Mean Corpuscular Hemoglobin 22.5L, Mean Corpuscular Hemoglobin Concent 31.2L, Red Cell Distribution Width 20.0H, Platelet Count 192, Mean Platelet Volume 8.0, Neutrophils (%) (Auto) , Lymphocytes (%) (Auto) , Monocytes (%) (Auto) , Eosinophils (%) (Auto) , Basophils (%) (Auto) , Differential Total Cells Counted 100, Neutrophils % ( Manual) 68, Lymphocytes % (Manual) 19L, Monocytes % (Manual) 12H, Eosinophils % (Manual) 1, Basophils % (Manual) 0, Band Neutrophils 0, Platelet Estimate Adequate, Platelet Morphology Normal, Hypochromasia 1+, Anisocytosis 2+, Microcytosis 1+, Polychromasia 1+, Sodium Level 143, Potassium Level 4.2, Chloride Level 108H, Carbon Dioxide Level 30, Anion Gap 5, Blood Urea Nitrogen 22H, Creatinine 1.4H, Estimat Glomerular Filtration Rate > 60, Glucose Level 101 , Uric Acid 3.8, Calcium Level 8.5, Phosphorus Level 3.5, Magnesium Level 2.4, Total Bilirubin 0.6, Aspartate Amino Transf (AST/SGOT) 17, Alanine Aminotransferase (ALT/SGPT) 31, Alkaline Phosphatase 40L, Total Protein 6.8, Albumin 3.0L, Globulin 3.8, Albumin/Globulin Ratio 0.8L, Carcinoembryonic Antigen [Pending] Height (Feet): 6 Height (Inches): 0.00 Weight (Pounds): 296 General Appearance: no apparent distress, alert EENT: PERRL/EOMI Neck: normal alignment Cardiovascular: tachycardia Respiratory/Chest: decreased breath sounds Abdomen: no mass Cristian Mac MD Jan 04, 2018 10:34
--- NOTE | 2018-01-04 10:37 | Nephrology Progress Note ---
Assessment/Plan Problem List: (1) Acute renal failure (2) Iron (Fe) deficiency anemia (3) Upper GI bleed Assessment Acute renal failure Cr lower- Possible underlying CKD- Pneumonia- Sepsis- Acute renal failure resolving Upper GI bleed Anemia Low Iron Plan Hydrate, lower rate now IV Iron - PO Folate Urine studies Flomax Per consultants / GI Per orders Subjective ROS Limited/Unobtainable: No Constitutional: Reports: malaise Objective Objective Last 24 Hour Vital Signs Date Time Temp Pulse Resp B/P (MAP) Pulse Ox O2 Delivery O2 Flow Rate FiO2 01/04/18 08:00 98.6 99 21 129/86 (100) 95 98.6 01/04/18 04:00 98 01/04/18 04:00 98.4 105 20 137/97 (110) 93 98.4 01/04/18 00:00 99.0 105 20 119/85 (96) 93 99.0 01/04/18 00:00 109 01/03/18 21:00 Nasal Cannula 2.0 01/03/18 20:21 Room Air 01/03/18 20:21 100 18 Room Air 21 01/03/18 20:00 98.0 109 20 123/82 (96) 94 98.0 01/03/18 20:00 110 01/03/18 16:06 96.9 102 19 158/71 (100) 94 96.9 01/03/18 16:00 105 01/03/18 12:00 98.3 87 21 133/76 (95) 94 98.3 01/03/18 12:00 104 Intake and Output 01/03/18 01/04/18 19:00 07:00 Intake Total 780 ml Output Total 1100 ml 920 ml Balance -320 ml -920 ml Intake Oral 780 ml Output Urine Total 1100 ml 920 ml # Voids 4 4 # Bowel Movements 1 Laboratory Tests 01/03/18 13:45: Stool Occult Blood [Pending] 01/03/18 18:05: White Blood Count 13.7H, Red Blood Count 3.43L, Hemoglobin 7.7L, Hematocrit 24.4L, Mean Corpuscular Volume 71L, Mean Corpuscular Hemoglobin 22.4L, Mean Corpuscular Hemoglobin Concent 31.4L, Red Cell Distribution Width 20.2H, Platelet Count 189, Mean Platelet Volume 7.6, Neutrophils (%) (Auto) , Lymphocytes (%) (Auto) , Monocytes (%) (Auto) , Eosinophils (%) (Auto) , Basophils (%) (Auto) , Differential Total Cells Counted 100, Neutrophils % ( Manual) 78H, Lymphocytes % (Manual) 14L, Monocytes % (Manual) 6, Eosinophils % ( Manual) 2, Basophils % (Manual) 0, Band Neutrophils 0, Platelet Estimate Adequate, Platelet Morphology Normal, Hypochromasia 1+, Anisocytosis 2+, Microcytosis 1+, Schistocytes Occasional 01/04/18 05:40: White Blood Count 9.4, Red Blood Count 3.45L, Hemoglobin 7.8L, Hematocrit 24.9L , Mean Corpuscular Volume 72L, Mean Corpuscular Hemoglobin 22.5L, Mean Corpuscular Hemoglobin Concent 31.2L, Red Cell Distribution Width 20.0H, Platelet Count 192, Mean Platelet Volume 8.0, Neutrophils (%) (Auto) , Lymphocytes (%) (Auto) , Monocytes (%) (Auto) , Eosinophils (%) (Auto) , Basophils (%) (Auto) , Differential Total Cells Counted 100, Neutrophils % ( Manual) 68, Lymphocytes % (Manual) 19L, Monocytes % (Manual) 12H, Eosinophils % (Manual) 1, Basophils % (Manual) 0, Band Neutrophils 0, Platelet Estimate Adequate, Platelet Morphology Normal, Hypochromasia 1+, Anisocytosis 2+, Microcytosis 1+, Polychromasia 1+, Sodium Level 143, Potassium Level 4.2, Chloride Level 108H, Carbon Dioxide Level 30, Anion Gap 5, Blood Urea Nitrogen 22H, Creatinine 1.4H, Estimat Glomerular Filtration Rate > 60, Glucose Level 101 , Uric Acid 3.8, Calcium Level 8.5, Phosphorus Level 3.5, Magnesium Level 2.4, Total Bilirubin 0.6, Aspartate Amino Transf (AST/SGOT) 17, Alanine Aminotransferase (ALT/SGPT) 31, Alkaline Phosphatase 40L, Total Protein 6.8, Albumin 3.0L, Globulin 3.8, Albumin/Globulin Ratio 0.8L, Carcinoembryonic Antigen [Pending] Height (Feet): 6 Height (Inches): 0.00 Weight (Pounds): 296 General Appearance: no apparent distress Cardiovascular: tachycardia Respiratory/Chest: decreased breath sounds Abdomen: soft, distended TRENTON WALDROP Jan 04, 2018 10:37
[2018-01-04] MEDS ORDERED: D5NS 1000ml IV ONE (11:47)
[2018-01-04 12:00] VITALS: BP 129/87
--- NOTE | 2018-01-04 12:53 | General Progress Note ---
Assessment/Plan Assessment/Plan S: I am ok O: appears comfortable, denies any active melena or abd pain PHYSICAL EXAMINATION:HEAD AND NECK: Atraumatic and normocephalic. CHEST: Clear to auscultation. No wheezing. No crackles. HEART: S1 and S2. Tachycardic. Negative for S3. Negative for S4. ABDOMEN: Morbidly obese. Negative for any organomegaly. Negative for any severe tenderness. NEUROLOGIC: The patient is awake, alert, and oriented x3, sleepy. Meds: reviewed and reconciled, including but not limited to Venofer ASSESSMENT AND PLAN: 1. Sepsis, source working in progress. 2. GI bleed - acute. 3. Diabetes type 2. 4. Hypertension. 5. Hyperlipidemia. 6. Anxiety depression. 7. Noncompliance with medical advice - history of. 8. iron Deficiency Anemia 9. DVT- history of 10 . Refusal of medical care Plan: PanEndoscopy on Friday Will monitor hh notes from GI and Nephro reviewed I had a detailed conversation with patient regarding the risks for leaving the hospital at this time, including . he understand however would like to leave Subjective Allergies: Coded Allergies: NO KNOWN DRUG ALLERGIES (Unverified Allergy, Unknown, 02/20/14) Objective Last 24 Hour Vital Signs Date Time Temp Pulse Resp B/P (MAP) Pulse Ox O2 Delivery O2 Flow Rate FiO2 01/04/18 08:00 98.6 99 21 129/86 (100) 95 98.6 01/04/18 08:00 92 01/04/18 04:00 98 01/04/18 04:00 98.4 105 20 137/97 (110) 93 98.4 01/04/18 00:00 99.0 105 20 119/85 (96) 93 99.0 01/04/18 00:00 109 01/03/18 21:00 Nasal Cannula 2.0 01/03/18 20:21 Room Air 01/03/18 20:21 100 18 Room Air 21 01/03/18 20:00 98.0 109 20 123/82 (96) 94 98.0 01/03/18 20:00 110 01/03/18 16:06 96.9 102 19 158/71 (100) 94 96.9 01/03/18 16:00 105 Intake and Output 01/03/18 01/04/18 19:00 07:00 Intake Total 780 ml Output Total 1100 ml 920 ml Balance -320 ml -920 ml Intake Oral 780 ml Output Urine Total 1100 ml 920 ml # Voids 4 4 # Bowel Movements 1 Laboratory Tests 01/03/18 13:45: Stool Occult Blood Positive 01/03/18 18:05: White Blood Count 13.7H, Red Blood Count 3.43L, Hemoglobin 7.7L, Hematocrit 24.4L, Mean Corpuscular Volume 71L, Mean Corpuscular Hemoglobin 22.4L, Mean Corpuscular Hemoglobin Concent 31.4L, Red Cell Distribution Width 20.2H, Platelet Count 189, Mean Platelet Volume 7.6, Neutrophils (%) (Auto) , Lymphocytes (%) (Auto) , Monocytes (%) (Auto) , Eosinophils (%) (Auto) , Basophils (%) (Auto) , Differential Total Cells Counted 100, Neutrophils % ( Manual) 78H, Lymphocytes % (Manual) 14L, Monocytes % (Manual) 6, Eosinophils % ( Manual) 2, Basophils % (Manual) 0, Band Neutrophils 0, Platelet Estimate Adequate, Platelet Morphology Normal, Hypochromasia 1+, Anisocytosis 2+, Microcytosis 1+, Schistocytes Occasional 01/04/18 05:40: White Blood Count 9.4, Red Blood Count 3.45L, Hemoglobin 7.8L, Hematocrit 24.9L , Mean Corpuscular Volume 72L, Mean Corpuscular Hemoglobin 22.5L, Mean Corpuscular Hemoglobin Concent 31.2L, Red Cell Distribution Width 20.0H, Platelet Count 192, Mean Platelet Volume 8.0, Neutrophils (%) (Auto) , Lymphocytes (%) (Auto) , Monocytes (%) (Auto) , Eosinophils (%) (Auto) , Basophils (%) (Auto) , Differential Total Cells Counted 100, Neutrophils % ( Manual) 68, Lymphocytes % (Manual) 19L, Monocytes % (Manual) 12H, Eosinophils % (Manual) 1, Basophils % (Manual) 0, Band Neutrophils 0, Platelet Estimate Adequate, Platelet Morphology Normal, Hypochromasia 1+, Anisocytosis 2+, Microcytosis 1+, Polychromasia 1+, Sodium Level 143, Potassium Level 4.2, Chloride Level 108H, Carbon Dioxide Level 30, Anion Gap 5, Blood Urea Nitrogen 22H, Creatinine 1.4H, Estimat Glomerular Filtration Rate > 60, Glucose Level 101 , Uric Acid 3.8, Calcium Level 8.5, Phosphorus Level 3.5, Magnesium Level 2.4, Total Bilirubin 0.6, Aspartate Amino Transf (AST/SGOT) 17, Alanine Aminotransferase (ALT/SGPT) 31, Alkaline Phosphatase 40L, Total Protein 6.8, Albumin 3.0L, Globulin 3.8, Albumin/Globulin Ratio 0.8L, Carcinoembryonic Antigen [Pending] Height (Feet): 6 Height (Inches): 0.00 Weight (Pounds): 296 Munri Mcintosh MD Jan 04, 2018 12:53
--- NOTE | 2018-01-04 14:51 | Infectious Diseases Prog Note ---
Assessment/Plan Problems: (1) Pneumonia Assessment & Plan: with B/L basal infiltrates ,improving , await sputum culture , continue zosyn empirically for now (2) Sepsis Assessment & Plan: due to the above , with negative blood culture, on zosyn empiric coverage pending final culture (3) Acute renal failure Assessment & Plan: monitor renal function, avoid nephrotoxics (4) Upper GI bleed Assessment & Plan: monitor H/H , transfuse as needed , for EGD tomorrow (5) Anemia Assessment & Plan: monitor H/H , transfuse as needed Subjective Constitutional: Reports: no symptoms HEENT: Reports: no symptoms Respiratory: Reports: dry cough Breasts: Reports: no symptoms Cardiovascular: Reports: no symptoms Gastrointestinal/Abdominal: Reports: no symptoms Genitourinary: Reports: no symptoms Neurologic: Reports: no symptoms Psychiatric: Reports: no symptoms Skin: Reports: no symptoms Endocrine: Reports: no symptoms Hematologic: Reports: no symptoms Musculoskeletal: Reports: no symptoms Allergies: Coded Allergies: NO KNOWN DRUG ALLERGIES (Unverified Allergy, Unknown, 02/20/14) Objective Vital Signs Last 24 Hour Vital Signs Date Time Temp Pulse Resp B/P (MAP) Pulse Ox O2 Delivery O2 Flow Rate FiO2 01/04/18 12:00 100.0 75 20 129/87 (101) 96 100.0 01/04/18 12:00 88 01/04/18 09:00 Nasal Cannula 2.0 01/04/18 08:45 Room Air 01/04/18 08:45 92 21 Room Air 21 01/04/18 08:00 98.6 99 21 129/86 (100) 95 98.6 01/04/18 08:00 92 01/04/18 04:00 98 01/04/18 04:00 98.4 105 20 137/97 (110) 93 98.4 01/04/18 00:00 99.0 105 20 119/85 (96) 93 99.0 01/04/18 00:00 109 01/03/18 21:00 Nasal Cannula 2.0 01/03/18 20:21 Room Air 01/03/18 20:21 100 18 Room Air 21 01/03/18 20:00 98.0 109 20 123/82 (96) 94 98.0 01/03/18 20:00 110 01/03/18 16:06 96.9 102 19 158/71 (100) 94 96.9 01/03/18 16:00 105 Height (Feet): 6 Height (Inches): 0.00 Weight (Pounds): 296 General Appearance: WD/WN, no acute distress HEENT: normocephalic, atraumatic, anicteric, mucous membranes moist Respiratory/Chest: chest wall non-tender, lungs clear, normal breath sounds, no respiratory distress, no accessory muscle use Cardiovascular: normal peripheral pulses, normal rate, regular rhythm, no gallop/murmur, no JVD Abdomen: normal bowel sounds, soft, non tender, no organomegaly, non distended , no mass, no scars Extremities: no cyanosis, no clubbing Skin: no rash, no lesions, no ulcers Neurologic/Psychiatric: alert, oriented x 3, responsive Microbiology Date/Time Source Procedure Growth Status 01/02/18 00:25 Blood Blood Culture - Preliminary NO GROWTH AFTER 48 HOURS Resulted 01/02/18 00:10 Blood Blood Culture - Preliminary NO GROWTH AFTER 48 HOURS Resulted 01/02/18 16:36 Sputum Expectorated Gram Stain - Final Complete 01/02/18 16:36 Sputum Expectorated Sputum Culture - Final NORMAL UPPER RESPIRATORY ROBY PRESENT Complete Laboratory Tests Test 01/03/18 18:05 01/04/18 05:40 White Blood Count 13.7 K/UL (4.8-10.8) H 9.4 K/UL (4.8-10.8) Red Blood Count 3.43 M/UL (4.70-6.10) L 3.45 M/UL (4.70-6.10) L Hemoglobin 7.7 G/DL (14.2-18.0) L 7.8 G/DL (14.2-18.0) L Hematocrit 24.4 % (42.0-52.0) L 24.9 % (42.0-52.0) L Mean Corpuscular Volume 71 FL (80-99) L 72 FL (80-99) L Mean Corpuscular Hemoglobin 22.4 PG (27.0-31.0) L 22.5 PG (27.0-31.0) L Mean Corpuscular Hemoglobin Concent 31.4 G/DL (32.0-36.0) L 31.2 G/DL (32.0-36.0) L Red Cell Distribution Width 20.2 % (11.6-14.8) H 20.0 % (11.6-14.8) H Platelet Count 189 K/UL (150-450) 192 K/UL (150-450) Mean Platelet Volume 7.6 FL (6.5-10.1) 8.0 FL (6.5-10.1) Neutrophils (%) (Auto) % (45.0-75.0) % (45.0-75.0) Lymphocytes (%) (Auto) % (20.0-45.0) % (20.0-45.0) Monocytes (%) (Auto) % (1.0-10.0) % (1.0-10.0) Eosinophils (%) (Auto) % (0.0-3.0) % (0.0-3.0) Basophils (%) (Auto) % (0.0-2.0) % (0.0-2.0) Differential Total Cells Counted 100 100 Neutrophils % (Manual) 78 % (45-75) H 68 % (45-75) Lymphocytes % (Manual) 14 % (20-45) L 19 % (20-45) L Monocytes % (Manual) 6 % (1-10) 12 % (1-10) H Eosinophils % (Manual) 2 % (0-3) 1 % (0-3) Basophils % (Manual) 0 % (0-2) 0 % (0-2) Band Neutrophils 0 % (0-8) 0 % (0-8) Platelet Estimate Adequate Adequate Platelet Morphology Normal Normal Hypochromasia 1+ 1+ Anisocytosis 2+ 2+ Microcytosis 1+ 1+ Schistocytes Occasional Polychromasia 1+ Sodium Level 143 MMOL/L (136-145) Potassium Level 4.2 MMOL/L (3.5-5.1) Chloride Level 108 MMOL/L (98-107) H Carbon Dioxide Level 30 MMOL/L (21-32) Anion Gap 5 mmol/L (5-15) Blood Urea Nitrogen 22 mg/dL (7-18) H Creatinine 1.4 MG/DL (0.55-1.30) H Estimat Glomerular Filtration Rate > 60 mL/min (>60) Glucose Level 101 MG/DL (74-106) Uric Acid 3.8 MG/DL (2.6-7.2) Calcium Level 8.5 MG/DL (8.5-10.1) Phosphorus Level 3.5 MG/DL (2.5-4.9) Magnesium Level 2.4 MG/DL (1.5-2.4) Total Bilirubin 0.6 MG/DL (0.2-1.0) Aspartate Amino Transf (AST/SGOT) 17 U/L (15-37) Alanine Aminotransferase (ALT/SGPT) 31 U/L (12-78) Alkaline Phosphatase 40 U/L (46-116) L Total Protein 6.8 G/DL (6.4-8.2) Albumin 3.0 G/DL (3.4-5.0) L Globulin 3.8 g/dL Albumin/Globulin Ratio 0.8 (1.0-2.7) L Carcinoembryonic Antigen Pending Current Medications Medications (Trade) Dose Ordered Sig/Cory Route PRN Reason Start Time Stop Time Status Last Admin Dose Admin Albuterol/ Ipratropium (Albuterol/ Ipratropium) 3 ml Q4H PRN HHN Shortness of Breath 01/02/18 06:45 01/07/18 06:44 01/03/18 07:40 Bisacodyl (Dulcolax) 10 mg ONCE ONCE ORAL 01/04/18 16:00 01/04/18 16:01 Bupropion HCl (Wellbutrin SR) 150 mg DAILY ORAL 01/02/18 09:00 02/01/18 08:59 01/04/18 09:01 Dextrose/Sodium Chloride 1,000 ml @ 50 mls/hr Q20H IV 01/03/18 10:15 02/02/18 10:14 01/04/18 05:30 Docusate Sodium (Colace) 100 mg THREE TIMES A DAY ORAL 01/03/18 13:00 02/02/18 12:59 01/04/18 09:01 Folic Acid (Folate) 2 mg DAILY ORAL 01/03/18 09:00 02/02/18 08:59 01/04/18 09:01 Guaifenesin (Mucinex ER) 600 mg TWICE A DAY ORAL 01/02/18 21:00 02/01/18 20:59 7/8/18 09:01 Iron Sucrose 100 mg/Sodium Chloride 60 ml @ 240 mls/hr BEDTIME IV 01/04/18 21:00 01/08/18 21:14 Mirtazapine (Remeron) 15 mg BEDTIME ORAL 01/02/18 21:00 02/01/18 20:59 01/03/18 21:40 Oxycodone/ Acetaminophen (Percocet 10/325) 1 tab QIDPRN PRN ORAL Severe Pain (Pain Scale 7-10) 01/02/18 12:00 01/09/18 11:59 01/03/18 18:19 Pantoprazole (Protonix) 40 mg EVERY 12 HOURS IVP 01/02/18 09:00 02/01/18 08:59 01/04/18 09:00 Piperacillin Sod/ Tazobactam Sod 3.375 gm/Dextrose 110 ml @ 27.5 mls/hr EVERY 8 HOURS IVPB 01/02/18 10:00 01/07/18 09:59 01/04/18 05:30 Polyethylene Glycol (Miralax) 238 gm ONCE ONCE ORAL 01/04/18 16:00 01/04/18 16:01 Tamsulosin HCl (Flomax) 0.4 mg BEDTIME ORAL 01/02/18 21:00 02/01/18 20:59 01/03/18 21:41 Doris Hunt M.D. Jan 04, 2018 14:51
[2018-01-04] MEDS ORDERED: Polyethylene Glycol 238gm bottle ORAL ONE (16:00)
[2018-01-04] MEDS ORDERED: Bisacodyl EC 5mg tab ORAL ONE (16:00)
--- NOTE | 2018-01-04 17:35 | Cardiology Report ---
APPROVED REPORT EXAM: Two-dimensional and M-mode echocardiogram with Doppler and color Doppler. INDICATION Arrhythmia M-Mode DIMENSIONS IVSd1.2 (0.7-1.1cm)Left Atrium (MM)4.0 (1.6-4.0cm) LVDd3.8 (3.5-5.6cm)Aortic Root3.3 (2.0-3.7cm) PWd1.6 (0.7-1.1cm)Aortic Cusp Exc.2.0 (1.5-2.0cm) LVDs2.5 (2.5-4.0cm) PWs1.7 cm Normal left ventricular chamber size, systolic function and wall motion. Left ventricular ejection fraction estimated to be 65-70 %. Mild left ventricular hypertrophy. Anterior Echo-free space, may be due to pericardial fat or effusion. Mild left atrial enlargement by 2-D. Right cardiac chamber sizes are within normal limits. Focal aortic valve sclerosis with adequate cusp excursion. Mildly thickened mitral valve leaflets with normal excursion. Mild mitral annulus and aortic root calcification. Normal pulmonic valve structure. Normal tricuspid valve structure. IVC dilated at 2.4 cm with physiological collapse. A color flow and spectral Doppler study was performed and revealed: No aortic insufficiency. Trace mitral regurgitation. Normal left ventricular diastolic function. Mild tricuspid regurgitation. Tricuspid systolic velocities suggests peak right ventricular systolic pressure of 48-53 mmHg, consistent with moderate pulmonary hypertension. No pulmonic regurgitation present.
[2018-01-04] MEDS ORDERED: Iron Sucrose 100 MG in NS 55 ML IV SCH (21:00)
--- NOTE | 2018-01-06 01:45 | Progress Note ---
DATE: 01/04/2018 SUBJECTIVE: Events overnight: The patient had long pauses during apneic episodes during his sleep. He himself denies any complaints. Denied any fever, chills, chest pain, or shortness of breath. He wants to leave AMA. Risks and benefits discussed with him. ALLERGIES: No known drug allergies. MEDICATIONS: Reviewed and unchanged. SOCIAL HISTORY: Reviewed and unchanged. FAMILY HISTORY: Reviewed and unchanged. REVIEW OF SYSTEMS: Reviewed and unchanged. PHYSICAL EXAMINATION: VITAL SIGNS: Temperature 98.4 degrees, pulse 105, blood pressure 137/95, respiratory rate 20 and saturating 98% on room air. GENERAL: He is a well-developed and well-nourished male, in no acute distress. Awake, alert, and oriented x3. He is morbidly obese. HEENT: Normocephalic and atraumatic. Oropharynx is clear with moist mucous membranes. NECK: Supple without lymphadenopathy or JVP. Mallampati score is 4. CHEST: Clear. HEART: Regular. ABDOMEN: Benign. EXTREMITIES: No cyanosis, clubbing, or edema. LABORATORY AND DIAGNOSTIC DATA: White count 9.4, hemoglobin 7.8, and platelet count 192. Sodium 143, potassium 4.2, chloride 108, bicarbonate 30, BUN 22, and creatinine 1.4. Stool occult blood is positive. Echocardiogram LVEF 65 to 70, mild LVH, IVC dilated with collapse, mild TR with RV pressure 48 to 53. ASSESSMENT: The patient is a 57-year-old smoker with history of COPD, NIKKO, hiatal hernia, known GI bleed in the past, anemia, lung nodules and DVT, noncompliant with anticoagulation admitted with shortness of breath and weakness, noted to have acute anemia secondary to an acute gastrointestinal bleed, leukocytosis, pneumonia and acute kidney injury. PROBLEM LIST: 1. Scattered bilateral predominant reticulonodular infiltrates. 2. Bronchiectasis. 3. COPD. 4. NIKKO noncompliant with CPAP. 5. Likely obesity, hypoventilation. 6. Chronic hypercapnic respiratory failure. 7. Acute anemia secondary to GI bleed. 8. Hematochezia with history of GI bleed in the past. 9. GISSELLE. 10. Elevated cardiac biomarkers, but with some demand ischemia. 11. Questionable history of DVT in the past, not currently on anticoagulation. 12. History of substance abuse in the past. TREATMENT PLAN: 1. Optimize pulmonary hygiene/mobilize as tolerated. 2. P.r.n. O2. 3. The patient states that he will try enteric CPAP this evening. 4. He will need a formal sleep study as an outpatient. 5. Continue antibiotics per ID. 6. Follow up cultures. 7. Amomn-kxs-znoqi and p.r.n. bronchodilators. 8. Further workup with bronchiectasis as an outpatient. 9. Follow up GI records, possible EGD tomorrow. 10. DVT prophylaxis, SCDs. 11. The patient is deciding whether or not to leave AMA. Kiel Castellon M.D. DR: JOCELINE JOB#: [id number] CC:
--- NOTE | 2018-01-06 09:28 | Discharge Summary ---
Discharge Summary Discharge Summary _ DATE OF ADMISSION: 01/02/2018 DATE OF DISCHARGE: 01/04/2018 Patient signed AGAINST MEDICAL ADVICE. REASON FOR ADMISSION: [57 years old male with past medical history significant for hypertension, chronic DVT right lower extremity, COPD, diabetes mellitus, presented with shortness of breath and generalized weakness. Patient also reported black stools and fever at home. Upon evaluation in emergency department patient was found to be hypotensive, tachycardic , tachypneic and hypoxemic , no fever . WBC 26.2, hemoglobin 7.8, hematocrit 24.9 . Lactic acid 2.6 BUN 66, creatinine 2.8 Troponin elevated - 0.063 ECG revealed normal sinus rhythm, no acute ischemic changes. LFT within normal limits CK 1314 Urine toxicology screen was negative Urinalysis was negative for UTI Chest x-ray revealed possible bilateral infiltrates. Venous duplex revealed chronic recanalized thrombus right lower extremity superficial femoral to popliteal veins. CT of the chest ,abdomen and pelvis revealed no evidence to account for GI bleeding Patient admitted with diagnoses of sepsis ,possible pneumonia ,acute GI bleeding , anemia, COPD, acute renal failure ,chronic DVT right lower extremity CONSULTANTS: telecom network manager Dr. Turner pulmonary Dr. Castellon ID specialist Dr. Hunt social work coordinator Dr. Ortiz garment steamer/oncologist Dr. Mac psychiatrist [facility] COURSE: Patient admitted. Patient started on IV hydration. Patient started on empiric antibiotic. ID specialist closely followed. Blood culture negative , sputum culture negative CT of the chest abdomen and pelvis revealed scattered bilateral reticular infiltrates and bronchiectasis Patient was treated for pneumonia. Air Bag Buffer closely followed. Patient with COPD as well as likely obesity hypoventilation syndrome and obstructive sleep apnea Patient was noncompliant with CPAP machine. Pulmonary toilet was optimized Supplemental oxygen titrated to keep pulse oximetry above 92%. Air Bag Buffer encouraged patient to use the CPAP at night. DVT prophylaxis with SCD provided. No anticoagulation given anemia. Air Bag Buffer recommended outpatient treatment for bronchiectasis. Antitussive provided as needed. Woodyard Operator closely followed. Renal parameters and electrolytes were closely monitored. Nephrotoxins were avoided. Electrolytes corrected as needed. Creatinine trending down. According to social work coordinator, acute renal failure was resolving , patient possibly had underlying chronic kidney disease. Flomax was continued. Anemia workup revealed anemia of iron deficiency and folate deficiency Folic acid was initiated Proof Sorter closely followed. Hemoglobin and hematocrit were closely monitored with goal to keep hemoglobin above 7 However garment steamer approved for transfusion with hemoglobin below 8, given symptomatic anemia. Patient was transfused with 2 units of packed red blood cells. Proof Sorter concurred to keep patient off anticoagulation, given anemia. Patient was on IV Venofer. Stool for occult blood was positive . GI evaluation was pending with plan for EGD for 01/05/18. Scalemaker closely followed. Second troponin was negative. Troponin elevation was likely secondary to renal failure versus acute anemia. Scalemaker doubted acute coronary syndrome with lack of chest pain and no ischemic changes on ECG. Echocardiogram revealed preserved ejection fraction of 65% , moderate pulmonary hypertension with right ventricular systolic pressure of 48-53. Moderate pulmonary hypertension likely secondary to obstructive sleep apnea. Patient exhibited evidence of paroxysmal atrial fibrillation, spontaneously converted to sinus rhythm. Off anticoagulation given GI bleeding. Patient noted to have sinus pauses at night likely due to obstructive sleep apnea and not wearing CPAP mask. Sleep pauses resolved with awakening. Patient was counseled on compliance with CPAP machine and advised on formal sleep study as outpatient Patient decided to sign AGAINST MEDICAL ADVICE. The risks and consequences of signing AGAINST MEDICAL ADVICE were discussed with patient in detail. Patient verbalized understanding, nevertheless signed AMA form and left. Prior to signing AMA, leukocytosis resolved Hemoglobin 7.8 hematocrit 28.4. CK down to 671. BUN from initial 66 down to 22 ,creatinine from initial 2.8 down to 1.4. FINAL DIAGNOSES: Iron deficiency anemia, requiring blood transfusion acute upper GI bleeding Sepsis Pneumonia Acute renal failure on possible underlying chronic kidney disease COPD Obstructive sleep apnea with noncompliance with CPAP Chronic hypercapnic respiratory failure 1 Moderate pulmonary hypertension Paroxysmal atrial fibrillation Likely obesity hypoventilation syndrome Bronchiectasis Chronic DVT right lower extremity I have been assigned to dictate discharge summary for this account. I was not involved in the patient's management. Jenny Abebe NP Jan 06, 2018 09:28
== END 2018-01-04 13:20 | disposition left against medical advice (07) | DRG 871 ==
LOC: EMR 23:59 → 2E 01-02 03:27 → EDBEDREQ 01-02 03:55
PROC: 30233N1 Transfusion of Nonautologous Red Blood Cells into Peripheral Vein, Percutaneous Approach (ICD-10-PCS; principal; 2018-01-02)
DX: A41.9 Sepsis, unspecified organism (principal); J18.9 Pneumonia, unspecified organism; K92.2 Gastrointestinal hemorrhage, unspecified; N17.9 Acute kidney failure, unspecified; D62 Acute posthemorrhagic anemia; N39.0 Urinary tract infection, site not specified; J96.12 Chronic respiratory failure with hypercapnia; E66.2 Morbid (severe) obesity with alveolar hypoventilation; I82.409 Acute embolism and thrombosis of unspecified deep veins of unspecified lower extremity; Z68.41 Body mass index [BMI] 40.0-44.9, adult; E78.5 Hyperlipidemia, unspecified; F41.8 Other specified anxiety disorders; Z91.19 Patient's noncompliance with other medical treatment and regimen; Z86.718 Personal history of other venous thrombosis and embolism; K44.9 Diaphragmatic hernia without obstruction or gangrene; J44.9 Chronic obstructive pulmonary disease, unspecified; F19.21 Other psychoactive substance dependence, in remission; F32.9 Major depressive disorder, single episode, unspecified; I12.9 Hypertensive chronic kidney disease with stage 1 through stage 4 chronic kidney disease, or unspecified chronic kidney disease; N18.9 Chronic kidney disease, unspecified; E11.22 Type 2 diabetes mellitus with diabetic chronic kidney disease; I48.0 Paroxysmal atrial fibrillation; I27.20 Pulmonary hypertension, unspecified; F17.200 Nicotine dependence, unspecified, uncomplicated; E86.0 Dehydration; Z53.29 Procedure and treatment not carried out because of patient's decision for other reasons
CPT/HCPCS: 36415; 36600; 71045; 71250; 74176; 80053; 80061; 80307; 81003; 82270; 82378; 82550; 82553; 82607; 82728; 82746; 82803; 82977; 83036; 83540; 83550; 83605; 83735; 83880; 84100; 84300; 84443; 84484; 84550; 85007; 85025; 85610; 85730; 86140; 86850; 86900; 86901; 86920; 87040; 87070; 87205; 93005; 93306; 93970; 94640; 94664; 99291; J7620